=== PATIENT | female | born 1965 | race Caucasian/White ===

== ENCOUNTER 2019-09-04 13:13 | Outpatient (CLI) | payer OTHER, SELFPAY ==
--- NOTE | ~2019-09-04 | XR_ITS ---
EXAMINATION: XR lg joint inject/asp w image DATE: 09/04/2019 14:14 INDICATION: Osteoarthritis of the right hip with popping and pain. TECHNIQUE: A time-out was performed to verify the patient's name, date of , and procedure to b e performed. The procedure including the risks, benefits, and alternatives was discussed with the pat ient. Risks discussed included bleeding and infection. The patient understood the risks and agreed to proceed. The skin overlying the right hip joint was prepped and draped in usual sterile fashion. A nesthetic was administered with 1% lidocaine subcutaneously. A 22 G needle was advanced under fluoro scopic guidance into the joint. Injection of 0.6 mL of Omnipaque 240 confirmed intra-articular posit ion of the needle. Subsequently, injectate consisting of 5 mL of a 3:2 mixture of 1% lidocaine and 1 0 mg/mL Kenalog for a total dosage of 20 mg Kenalog was instilled. Washout of contrast was seen confi rming intra-articular administration. The needle was removed and the entry site was cleaned and dress ed. There were no immediate complications. Fluoroscopy exposure time was 0.1 minutes. The total numb er of images was 1. FINDINGS: Real-time fluoroscopy demonstrates the needle in the right hip joint. Patient's pain prior to procedure:07/05. Patient's pain following the procedure: 04/06. IMPRESSION: 1. Right hip injection of local anesthetic and steroid with decrease in the patient's presenting pain . Reviewed, dictated and finalized at location A. IMPRESSION: 1. Right hip injection of local anesthetic and steroid with decrease in the pat ient's presenting pain.
== END 2019-09-04 13:14 | disposition home or self-care (01) ==
PROVIDERS: PCP Internal Medicine; Visit Provider Physician Assistant Surgical
DX: M16.11 Unilateral primary osteoarthritis, right hip (principal)
CPT/HCPCS: 20610; 77002; J3301; Q9966

== ENCOUNTER 2019-11-27 14:43 | Outpatient (CLI) | payer OTHER, SELFPAY ==
--- NOTE | ~2019-11-27 | US_ITS ---
EXAMINATION: US pelvic complete w TV DATE: 11/27/2019 15:47 INDICATION: Pelvic pain. TECHNIQUE: Multiple transabdominal and transvaginal sonographic images of the pelvis were obtained. COMPARISON: Ultrasound pelvis 01/16/2015 FINDINGS: TRANSABDOMINAL ULTRASOUND: The uterus measures 9.2 x 3.2 x 4.6 cm. There is no free fluid in the pelvis. TRANSVAGINAL ULTRASOUND: The endometrial complex measures 8 mm in thickness. The ovaries are normal. IMPRESSION: 1. Thickened endometrial complex. The differential diagnosis includes endometrial hyperplasia, polyp, and carcinoma. Biopsy is recommended. 2. Ovaries not visualized. Reviewed, dictated and finalized at location A. IMPRESSION: 1. Thickened endometrial complex. The differential diagnosis includes endometri al hyperplasia, polyp, and carcinoma. Biopsy is recommended. 2. Ovaries not visualized.
== END 2019-11-27 14:44 | disposition home or self-care (01) ==
PROVIDERS: PCP Internal Medicine
DX: R10.30 Lower abdominal pain, unspecified (principal)
CPT/HCPCS: 76830; 76856

== ENCOUNTER 2024-04-18 14:52 | Outpatient (CLI) | payer OTHER, SELFPAY ==
--- NOTE | ~2024-04-18 | DEXA_ITS ---
Bone Density Report Name: BRIAN VIVAR Age: 58 Sex: Female Ethnicity: White Date of : 1965 Indication: osteopenia; prior fracture; Referring Provider: JAYY, REMEDIOS Doran Study: Bone densitometry was performed. Exam Date: April 18, 2024 Accession number: [id number] Bone Density: Region BMD T-score Z-score Classification AP Spine(L1-L4) 0.894 -1.4 -0.1 Osteopenia Femoral Neck (Left) 0.598 -2.3 -1.1 Osteopenia Total Hip (Left) 0.801 -1.2 -0.3 Osteopenia World Health Organization criteria for BMD impression classify patients as: Normal (T-score at or above -1.0), Osteopenia (T-score between -1.0 and -2.5), or Osteoporosis (T-score at or below -2.5). 10-year Fracture Risk(1): Major Osteoporotic Fracture 16% Hip Fracture 2.6% Reported Risk Factors: [place] (), Neck BMD=0.598, BMI=27.4, previous fracture (1) FRAX(R) Version 3.08. Fracture probability calculated for an untreated patient. Fracture probability may be lower if the patient has received treatment. Previous Exams: Region Exam Age BMD T-score BMD Change BMD Change Date g/cm2 vs Baseline vs Previous AP Spine (L1-L4) 04/18/2024 58 0.894 -1.4 -0.022 (-2.4%) -0.022 (-2.4%) 07/02/2014 48 0.916 -1.2 Total Hip(Left) 04/18/2024 58 0.801 -1.2 -0.014 (-1.8%) -0.014 (-1.8%) 07/02/2014 48 0.815 -1.0 *Denotes significance at 95% confidence level, LSC for AP Spine = 0.022 g/cm2, LSC for Total Hip = 0.027 g/cm2 Clinical Information Provided by Patient: Has had a low trauma fracture Has used the following medications: HRT (i.e. estrogen/hormone therapy), MULTI VITAMIN Patient maximum height was 63 No regular weight bearing exercise Drinks caffeinated beverages Onset of menses at age 15 Number of children 2 Impression: The patient has low bone mass, based on the Left Femoral Neck T-score. The patient has an estimated ten-year risk of hip fracture of 2.6% and an estimated ten-year risk of major fracture of 16%, based on the WHO FRAX algorithm. The patient has risk factors, including: previous fracture. No significant bone loss was observed. Discussion: BONE DENSITY IS LOW AT ONE OR MORE SKELETAL SITES. This patient's lowest T-score is low at one or more skeletal sites. It meets the World Health Organization's (WHO) criteria for ?low bone mass? (T-score between -1.0 and -2.5). The patient's 10-year risk of fracture as calculated by FRAX is less than the threshold where pharmacological therapy is recommended by the National Osteoporosis Foundation (NOF). However, all treatment decisions require clinical judgment and consideration of individual patient factors, including patient preferences, comorbidities, previous drug use, risk factors not captured in the FRAX model (e.g., frailty, falls, vitamin D deficiency, increased bone turnover, interval significant decline in bone density) and possible under or overestimation of fracture risk by FRAX. The patient should follow a healthful lifestyle (good nutrition with adequate calcium and vitamin D, and appropriate weight-bearing exercise). Follow-Up: Consider repeating this study in 2 to 3 years to reassess this patient's status, or sooner if there is some new clinical indication. Reported by: AMADOU on 04/18/2024 3:24:00 PM. Reviewed, dictated and finalized at location A. JACQUELINE
--- OUTSIDE RECORDS SUMMARY | 2024-04-20 02:37 | XMS_ITS | Continuity of Care Document ---
Author Organization [place] [facility], [facility] Internal Med [address] Address [address] 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 Plan of Treatment Reminders Order Date Submit Date Provider Last Modified By Organization Details Last Modified Time Details Appointments None recorded. Lab CMP, serum or [facility] 2024 025 [facility], 2022 Brando Mckeon, [facility] [address], [place], [address], 5 13:00:10 lipid panel, serum 2024 025 [facility], 2022 Branod Mckeon, [facility] [address], [place], [address], 5 13:00:12 vitamin D, 25-hydrox y, total, serum 2024 [facility], 2022 Brando Mckeon, [facility] [address], [place], [address], 5 13:00:14 CBC w/ auto diff 2024 025 [facility], 2022 Brando Mckeon, [facility] [address], [place], [address], 5 13:00:13 Referral None recorded. Procedures None recorded. Surgeries None recorded. Imaging DEXA 2024 025 [facility], 2022 Tyrell Mckeon, [address], [place], [address], 5 17:10:35 Medication Orders None recorded. Patient TargetsNo targets recorded. Patient InstructionsNo instructions recorded. Reason for Referral None Reported. Problems Name Problem SNOMED Code Status Onset Date Resolution Date Notes Provider Name and Address Organization Details Recorded Time Acute sinusitis 71842665 Completed 202103/10/2023 Ila Carrillo n, RMA null, [place] [facility] 3 15:55:19 Knee stiff 761000112 Completed Not Available [facility] 3 14:48:19 Subluxati on of toe joint 331418605 Completed 202103/10/2023 Ila Carrillo n, RMA null, [place] [facility] 3 15:55:44 Low back pain 068780868 Completed 03/10/2023 Ila jackson, RMA null, [place] [facility] 3 15:55:25 Lesion of liver 034119816 Completed Not Available [facility] 3 14:48:20 Current tear of medial cartilage AND/OR meniscus of knee Active Not Available [facility] 3 14:48:20 Ganglion cyst of left hand 01323931649 9105 Active 2021 Ila jackson, RMA null, [place] [facility] 3 15:55:53 Ulcer of big toe 852758804 Completed 202103/10/2023 Ila Carrillo n, RMA null, [place] [facility] 3 15:55:42 Pain in left foot 15696719693 9107 Completed 202103/10/2023 Ila Carrillo n, RMA null, [place] [facility] 3 15:55:37 Blood in urine 58858864 Completed Not Available [facility] 3 14:48:20 Hemangiom a 366169623 Completed 201603/10/2023 Ila Riosbea n, RMA null, [place] [facility] 3 15:55:29 Bunion 927878784 Completed 202103/10/2023 Ila Stufflebea n, RMA null, [place] [facility] 3 15:55:34 Anxiety 45934844 Active Not Available [facility] 3 14:48:20 Upper respirato ry infection 39356516 Completed Ila Riosbea n, RMA null, [place] [facility] 3 15:55:49 Hyperlipi demia 29019511 Active 2021 Ila Stsarahbea n, RMA null, [place] [facility] 3 15:55:27 Palpitati ons 15138614 Completed 03/10/2023 Ila Veraa n, RMA null, [place] [facility] 3 15:55:46 Neck pain 41719704 Completed Not Available [facility] 3 14:48:21 Pain in limb 60478503 Completed Not Available [facility] 3 14:48:21 Upper respirato ry infection 00845697 Completed 202203/10/2023 Ila Riosbea n, RMA null, [place] [facility] [place] [facility] 3 15:55:49 Bilateral sacroilia c joint pain 75086428413 718926 Completed 202203/10/2023 Ila Riosbea n, RMA null, [place] [facility] 3 15:55:23 Viral gastroent eritis 996114787 Active 2022 Je Valladares MD [address] [place] [address], [address] , [place] [facility] 3 16:09:46 COVID-19 310816116 Active 2023 Malissa Hamilton LPN null, [place] [facility] 4 14:23:11 Steatosis of liver 752983606 Active 2024 Je Valladares MD [address] [facility], [facility] [address], [place], [address] , [facility] [employer] [facility] 5 12:47:54 Memory impairmen t 295631248 Active 2024 Je Valladares MD [address] [facility], [facility] [address], [place], [address] , [facility] [employer] [facility] 5 12:52:59 Problem Notes None recorded. Procedures Surgical History Date Name Laterality Status Provider Name and Address Organization Details Recorded Time 05/27/19 Hip surgery completed Yola Mancini CNA [place] [employer] [facility] [employer] [facility] 02/10/2023 13:35:27 hammer toe operation completed Not Available [facility] 05/26/2022 14:45:37 partial hip replacement by prosthesis completed Not Available [facility] 05/26/2022 14:45:37 Imaging Results None recorded. Procedure Notes None recorded. Medical Equipment None Reported. Allergies Allergen ID Allergen Name Allergen Category Reaction Reaction Severity Criticality Documentation Date Start Date Code Code System Note Provider Name and Address Organization Details Recorded Time 70112 Substance with sulfonami de structure and antibacte rial mechanism of action (substanc e) medicatio n Not available Not available Not available 05/26/2022 44594 8003 SNOMED Not Available [facility] 3 14:51:05 Medications Name Sig Start Date Stop Date Status Note LastModified by Organization Details LastModified Time celecoxib 200 mg capsule TAKE 2 CAPSULES BY MOUTH WITH BREAKFAST THE DAY BEFORE SURGERY. TAKE 1 CAPSULE TWICE DAILY FOR 4 DAYS AFTER DISCHARGE 12/09 completed Not Available Not Available Not Available amoxicillin 500 mg capsule TAKE 1 CAPSULE BY MOUTH EVERY 8 HOURS UNTIL FINISHED 04/18 completed Not Available Not Available Not Available terconazole 0.4 % vaginal cream active Not Available Not Available Not Available prednisone 10 mg tablet Take 10 mg by oral route as directed. 12/09 completed Not Available Not Available Not Available doxycycline hyclate 100 mg capsule Take 1 capsule twice a day by oral route for 7 days. 06/01 completed Not Available Not Available Not Available azithromyci n 250 mg tablet TAKE 2 TABLETS BY MOUTH TODAY, THEN TAKE 1 TABLET DAILY FOR 4 DAYS DIRECTED 04/18 completed Not Available Not Available Not Available CombiPatch 0.05 mg-0.14 mg/24 hr transdermal 03/18 completed Not Available Not Available Not Available ibuprofen 800 mg tablet TAKE 1 TABLET BY MOUTH EVERY 8 HOURS NEEDED FOR PAIN 04/18 completed Not Available Not Available Not Available fluconazole 150 mg tablet TAKE 1 TABLET (150 MG TOTAL) BY MOUTH ONCE FOR 1 DOSE. 04/18 completed Not Available Not Available Not Available benzonatate 200 mg capsule TAKE 1 CAPSULE BY MOUTH THREE TIMES DAILY 02/10 completed Not Available Not Available Not Available hydrocodone 5 mg-acetamin ophen 325 mg tablet TAKE 1 TO 2 TABLETS BY MOUTH EVERY 4 HOURS NEEDED FOR PAIN. MUST LAST 7 DAYS. 12/09 completed Not Available Not Available Not Available bupivacaine HCl 0.5 % (5 mg/mL) injection solution Take 40 mg by injection route. 03/10 completed Not Available Not Available Not Available prednisone 20 mg tablet 01/06 completed Not Available Not Available Not Available prednisone 5 mg tablet TK 1 T PO QD active Not Available Not Available No t Available terconazole 0.8 % vaginal cream IVB FOR 3 CONS DAYS 11/10 completed Not Available Not Available Not Available clindamycin HCl 150 mg capsule active Not Available Not Available Not Available hydroxyzine pamoate 50 mg capsule 12/09 completed Not Available Not Available Not Available meclizine 12.5 mg tablet Take 1 tablet 3 times a day by oral route. active Not Available Not Available No t Available metronidazo le 500 mg tablet TAKE 1 TABLET BY MOUTH TWICE A DAY FOR 7 DAYS 04/18 completed Not Available Not Available Not Available acetaminoph en 300 mg-codeine 30 mg tablet TK 1 T PO BID PRN active Not Available Not Available No t Available ciprofloxac in 250 mg tablet TAKE 1 TABLET BY MOUTH TWICE DAILY FOR 7 DAYS 04/18 completed Not Available Not Available Not Available ciprofloxac in 500 mg tablet TK 1 T PO BID. active Not Available Not Available No t Available tramadol 50 mg tablet active Not Available Not Available No t Available triamcinolo ne acetonide 0.1 % topical cream APPLY TO NECK TWICE DAILY 04/18 completed Not Available Not Available Not Available clobetasol 0.05 % topical gel 11/29 completed Not Available Not Available Not Available prednisone 10 mg tablets in a dose pack Take 1 tab by mouth, 3 times a day for 3 daysTake 1 tab by mouth 2 times a day for 2 daysTake 1 tab by mouth once a day for 1 day 03/18 completed Not Available Not Available Not Available meloxicam 7.5 mg tablet 02/10 completed Not Available Not Available Not Available Kenalog 10 mg/mL suspension for injection Take 40 mg by injection route. 03/10 completed [facility]: 0003- [phone]- 20 Not Available Not Available Not Available lorazepam 2 mg tablet 11/29 completed Not Available Not Available Not Available benzonatate 100 mg capsule 11/29 completed Not Available Not Available Not Available doxycycline monohydrate 100 mg capsule Take 1 capsule twice a day by oral route. active Not Available Not Available No t Available cephalexin 500 mg capsule active Not Available Not Available Not Available triamcinolo ne acetonide 0.1 % topical ointment 11/29 completed Not Available Not Available Not Available fluorometho lone 0.1 % eye drops,suspe nsion SHAKE LIQUID AND INSTILL 1 DROP IN RIGHT EYE FOUR TIMES DAILY 03/10 completed Not Available Not Available Not Available gabapentin 300 mg capsule TK 1 C PO TID active Not Available Not Available No t Available mupirocin 2 % topical ointment 12/09 completed Not Available Not Available Not Available Enbrel 25 mg (1 mL) subcutaneou s powder for solution active Not Available Not Available Not Available lorazepam 1 mg tablet TAKE 1 TABLET 3 TIMES A DAY active Not Available Not Available No t Available ibuprofen 600 mg tablet 11/10 completed Not Available Not Available Not Available fluocinonid e 0.05 % topical solution APPLY TO SCALP TWICE DAILY 12/09 completed Not Available Not Available Not Available levofloxaci n 500 mg tablet TK 1 T PO Q 24 H FOR 7 DAYS 11/05 completed Not Available Not Available Not Available estradiol 0.01% (0.1 mg/gram) vaginal cream APPLY 1 GRAM TO VAGINA TWO NIGHTS PER WEEK 04/18 completed Not Available Not Available Not Available methylpredn isolone 4 mg tablets in a dose pack 11/29 completed Not Available Not Available Not Available fluticasone propionate 50 mcg/actuati on nasal spray,suspe nsion SHAKE LIQUID AND USE 1 SPRAY IN EACH NOSTRIL TWICE DAILY 02/10 completed Not Available Not Available Not Available doxycycline hyclate 100 mg tablet TAKE 1 TABLET BY MOUTH TWICE DAILY FOR 7 DAYS 02/10 completed Not Available Not Available Not Available progesteron e micronized 100 mg capsule active Not Available Not Available Not Available amoxicillin 875 mg-potassiu m clavulanate 125 mg tablet TAKE 1 TABLET BY MOUTH TWICE DAILY FOR 5 DAYS 04/18 completed Not Available Not Available Not Available amoxicillin 500 mg-potassiu m clavulanate 125 mg tablet active Not Available Not Available Not Available estradiol 0.025 mg/24 hr semiweekly transdermal patch active Not Available Not Available Not Available escitalopra m 10 mg tablet TAKE 1 AND 1/2 TABLETS DAILY active Not Available Not Available No t Available cyclobenzap rine 5 mg tablet TAKE 1 TABLET BY MOUTH TWICE DAILY NEEDED 04/18 completed Not Available Not Available Not Available Premarin 0.625 mg/gram vaginal cream USE 0.5 GRAM VAGINALLY 2 TIMES A WEEK NEEDED 02/10 completed Not Available Not Available Not Available nitrofurant oin monohydrate /macrocryst als 100 mg capsule TAKE 1 CAPSULE BY MOUTH TWICE DAILY 04/18 completed Not Available Not Available Not Available chlorhexidi ne gluconate 0.12 % mouthwash SWISH 15 ML IN MOUTH TWICE A DAY FOR 30 SECONDS THEN EXPECTORA TE 04/18 completed Not Available Not Available Not Available clobetasol 0.05 % topical spray 08/21 completed Not Available Not Available Not Available lidocaine (PF) 10 mg/mL (1 %) injection solution In office injection administe red by the provider 03/18 completed [facility]: 0409- 4276- [phone] Not Available Not Available Not Available Enbrel 25 mg/0.5 mL (0.5 mL) subcutaneou s syringe Inject 1 mL every day by subcutane ous route. 03/18 completed Not Available Not Available Not Available diclofenac 1 % topical gel 02/10 completed Not Available Not Available Not Available Uribel 118 mg-10 mg-40.8 mg-36 mg capsule 11/29 completed Not Available Not Available Not Available Suprep Bowel Prep Kit 17.5 gram-3.13 gram-1.6 gram oral solution 11/05 completed Not Available Not Available Not Available Emily (28) 90 mcg-20 mcg tablet 11/05 completed Not Available Not Available Not Available Xeljanz 5 mg tablet 12/09 completed Not Available Not Available Not Available Taclonex 0.005 %-0.064 % topical suspension active Not Available Not Available N ot Available Eliquis 2.5 mg tablet 12/09 completed Not Available Not Available Not Available Stimulant Laxative Plus 8.6 mg-50 mg tablet TAKE 2 TABLETS BY MOUTH TWICE DAILY. 12/09 completed Not Available Not Available Not Available Fluvirin 9086-0902 45 mcg (15 mcg x 3)/0.5 mL intramuscul ar suspension INJECT 0.5 ML INTRAMUSC ULARLY DIRECTED. active Not Available Not Available No t Available Humira(CF) Pen 40 mg/0.4 mL subcutaneou s kit 04/18 completed Not Available Not Available Not Available Imvexxy Starter Pack 4 mcg vaginal insert, dose pack INSERT 1 SUPPOSITO RY INTO THE VAGINA NIGHTLY FOR 18 DAYS 04/18 completed Not Available Not Available Not Available Flublok Quad (PF) 180 mcg (45 mcg x 4)/0.5 mL IM syringe PHARMACIS T ADMINISTE RED IMMUNIZAT ION ADMINISTE RED AT TIME OF DISPENSIN G 12/09 completed Not Available Not Available Not Available Flowflex COVID-19 Antigen Home Test kit TEST DIRECTED TODAY 02/10 completed Not Available Not Available Not Available Paxlovid 300 mg (150 mg x 2)-100 mg tablets in a dose pack TK 2 NIRMATREL VIR TS AND 1 RITONAVIR T TOGETHER PO 04/18 completed Not Available Not Available Not Available Hyrimoz(CF) Pen 40 mg/0.4 mL subcutaneou s pen injector active Not Available Not Available Not Available Vitals Date Recorded Body height Body mass index (BMI) Body weight Body temperature Heart rate Oxygen saturation Oxygen saturation in Arterial blood by Pulse oximetry Systolic blood pressure Diastolic blood pressure Provider Name and Address Organization Details Last Updated DateTime 5 163.83 cm 26.9 kg/m2 62287.1 9 g 97.2 [degF] 88 /min 96 % 96 % 118 mm[Hg] 80 mm[Hg] MIRA Bryant [place] [facility] [place] [facility] 5 12:24:58 Social History Question Answer Notes LastModified by Organizat ion Details LastModified Time Tobacco Smoking Status Former Smoker Not Available [facility] 05/26/2022 14:45:29 What Is Your Level Of Alcohol Consumption? Occasional [id number] Information not available 05/26/2022 In The 14 Days Before Symptom Onset, Have You Had Close Contact With A Laboratory-confir med COVID-19 While That Case Was Ill? No [id number] Information not available 05/26/2022 In The 14 Days Before Symptom Onset, Have You Had Close Contact With A Person Who Is Under Investigation For COVID-19 While That Person Was Ill? 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 17+yearssinthelma jensen Quit When She Was 31 [email or web address] Information not available 02/10/2023 Have You Ever Been Counseled For Unhealthy Alcohol Use? No [id number] Information not available 05/26/2022 Has Tobacco Cessation Counseling Been Provided? No [id number] Information not available 05/26/2022 Have You Recently Traveled Abroad? No [id number] Information not available 05/26/2022 Do You Or Have You Ever Used Any Other Forms Of Tobacco Or Nicotine? No [id number] Information not available 05/26/2022 Sex: Unknown Functional Status None recorded. Mental Status None recorded. Family History Relationship Description Onset Age of this Age Resolved Age Notes LastModified by Organization Details LastModified Time Father Diabetes mellitus deceas ed [id number] Not available 05/26/2022 14:45:38 Father Arthritis deceas ed Not available 04/18/2024 12:19:46 Father Kidney disease [email or web address] Not available 2022 13:34:17 Mother Hypertensive disorder [id number] Not available 05/26/2022 14:45:38 Mother Osteoporosis Not avail able 04/18/2024 12:19:46 Medical History Condition Response ARTHRITIS Y HIGH CHOLESTEROL / HYPERLIPIDEMIA Y ANXIETY DISORDER Y Gynecological HistoryNo gynecological history recorded. Obstetrics History GPAL:G 0 P 0 0 0 0 Immunizations Vaccine Type Date Status Note Provider Nam e and Address Organization Details Recorded Time Influenza, high-dose, trivalent, PF 0 completed Not Available [facility] 05/26/2022 14:50:57 Influenza, high-dose, trivalent, PF 9 completed Not Available [facility] 05/26/2022 14:50:57 DTaP 8 completed Not Available [facility] 05/26/2022 14:50:57 Influenza, split virus, quadrivalent, preservative 1 completed Not Available [facility] 05/26/2022 14:50:57 COVID-19, mRNA, LNP-S, PF, 100 mcg/0.5mL dose or 50 mcg/0.25mL dose 1 completed Not Available [facility] 05/26/2022 14:50:57 COVID-19, mRNA, LNP-S, PF, 100 mcg/0.5mL dose or 50 mcg/0.25mL dose 1 completed Not Available [facility] 05/26/2022 14:50:57 influenza, unspecified formulation 8 completed Not Available [facility] 05/26/2022 14:50:57 Influenza, split virus, quadrivalent, preservative 6 completed Not Available [facility] 05/26/2022 14:50:58 Past Encounters Encounter ID Performer Location Encounter Start Date Encounter Closed Date Diagnosis/Indication Diagnosis SNOMED-CT Code Diagnosis ICD10 Code Diagnosis Note [id number] Je Valladares MD [facility] [address] [facility] [place] [address] 04/18/2024 12:15:16 04/18/2024 13:02:25 Adult health examination 374984505 Z00.00 Colonoscop y- Age 54- Dr. Rosanne reagan- 2023 (depaul) NL per ptDEXA- OrderedFLU - neededPneu movax- neverCOVID - needs booster Screening for osteoporosis 525900838 Z13.820 Anxiety 57343741 F41.9 under control Steatosis of liver 24773 1007 K76.0 Long-term drug therapy 080765497 Z79.891 Memory impairment 975651 006 R41.3 to see neuro, no memory loss seen on nl conversati on Health Concerns Section Related Observation LastModified by Organization Detai ls LastModified Time None Recorded Concern Status LastModified by Organization Details LastModified Time None Recorded Payers Encounter Date Sequence Insurance Name Policy Number Policy Moreno Covered Member ID Moreno Member ID Guarantor Name 04/18/2024 1 [employer] - OPEN ACCESS Alondra Parker [id number] OI Alondra Parker Notes Date Note Type Note Provider Name and Address Organization Details Recorded Time 04/18/2024 text/html Pt is here today for a Routine follow upShe has not been seen since 02/2023PT IS NOT FASTING ( [employer]) Would like her cholesterol checked as well as other labsAlso worried about her memory, forgets name of people Arthritis- Sees Rheumatology, On medsMeds- Hyrimoz Once every 2 weeks 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 She does see PsychMeds- Escitalopram 10mg, Lorazepam 1mg TID as needed Je Valladares MD [address] [place] [address], [facility] [address], [place], [address], [place] [facility] [employer] 04/18/2024 13:04:12 OBGyn Episode No OBEpisode recorded.
--- OUTSIDE RECORDS SUMMARY | 2024-04-20 02:37 | XMS_ITS | Referral Summary ---
Author Organization [facility] Address [address] [place] [address] Care Team Providers Care Filler In Name Role Phone Je Valladares MD Primary Care Provider Source Comments [facility],non-owned Affiliates and Associated Physician Practices is amultiple site organization consisting of ambulatory clinics and hospital sitesin [place], [place], [place] and [place]. This disclosure is being madepursuant to the Care Everywhere program and may not contain all information available regarding this patient. Last updated 17.[facility] Encounters Date Type Department Care Team Description 04/12/2024 Travel 03/30/2024 Telephone [facility] - GI [address] [place] [phone] Juan Hubbard MD Appointment 03/27/2024 Telephone [facility] - Nephrology [address] [place] [phone] Ila Raymond RN Concerns from Last 3 Months Allergies Active Allergy Reactions Criticality Noted Date Comments Sulfa Drugs Other Medium 04/28/2016 shakes Medications * Be aware that medications may not be up to date on this document. Alwaysverify current medications with the patient. Medication Sig Dispensed Refills Start Date End Date Status escitalopram (LEXAPRO) 10 MG tablet Take 1 (one) tablet by mouth once daily 03/21/2016 Active LORazepam (ATIVAN) 1 MG tablet Take 1 (one) tablet by mouth 2 times daily 01/19/2016 Active predniSONE (DELTASONE) 5 MG tablet 03/21/2016 Active estradiol (VIVELLE-DOT) 0.025 MG/24HR patch 12/04/2020 Active Progesterone 100 MG capsule 12/04/2020 Active HUMIRA PEN 40 MG/0.4ML injection 0.4 mL every 14 days 08/26/2021 Active Cholecalciferol 50 MCG (2000 UT) Take 2,000 Units by mouth every morning Active Multiple Vitamin (MULTIVITAMIN ADULT PO) Active meloxicam (Mobic) 7.5 MG tablet Take 1 (one) tablet by mouth once daily 07/19/2023 07/18/2024 Active Active Problems Problem Noted Date Diagnosed Date Elevated liver enzymes 02/01/2020 Overview (08/10/2023): 02/01/20 Fibroscan CAP 275, LSM 4.5 kPa 09/01/22 Fibroscan CAP 225, LSM 4.8 kPa 08/08/23 Fibroscan CAP 265, LSM 7.3 kPa Anxiety 02/01/2020 Low back pain 02/01/2020 Psoriatic arthritis 02/01/2020 Liver hemangioma 11/10/2016 Abnormal finding on breast imaging 08/26/2016 Social History Tobacco Use Types Packs/Day Years Used Date Smoking Tobacco: Never Smokeless Tobacco: Never Tobacco Cessation:Counseling Given: Not Answered Alcohol Use Standard Drinks/Week Comments Yes 0 (1 standard drink = 0.6 oz pur e alcohol) socially- a couple on weekends Sex and Gender Information Value Date Recorded Sex Assigned at Female 05/13/2021 5:37 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 Gender Identity Female 05/13/2021 5:37 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 Sexual Orientation Not on file Last Filed Vital Signs Vital Sign Reading Time Taken Comments Blood Pressure 128/72 08/08/2023 11:49 AM CDT Pulse 75 08/08/2023 11:49 AM CDT Temperature 36.4 ??C (97.5 ??F) 08/08/2023 11:49 AM C DT Respiratory Rate 18 08/03/2022 11:24 AM CDT Oxygen Saturation 100% 08/08/2023 11:49 AM CDT Inhaled Oxygen Concentration - - Weight 71.7 kg (158 lb) 08/08/2023 11:49 AM CDT Height 162.6 cm (5' 4 ) 08/08/2023 11:49 AM CDT Body Mass Index 27.12 08/08/2023 11:49 AM CDT Plan of Treatment Upcoming Encounters Date Type Department Care Team (Late st Contact Info) Description 06/04/2024 12:30 PM CDT Appointment [facility] [address] [place] [phone] Juan Hubbard MD [address] [place] [address] [address] [place] [address] 06/04/2024 1:30 PM CDT Office Visit [facility] GI [address] [place] [address], [place] [phone] Juan Hubbard MD [address] [place] [address] [address] [place] [address] Goals Goal Patient Goal Type Associated Problems Recent Progress Patient-Stated? Author Medication Management General On track( 024 11:47 AM CDT) Stephen Beatty, RN Note: Expected end date: ongoing Interventions: Take all medications as prescribed Let your doctor know right away about any changes in your medications Make sure to request a refill of your medication at least one week prior to your last dose Procedures Procedure Name Priority Date/Time Associated Diagnosis Comments BASIC METABOLIC PANEL (CALCIUM TOTAL) Routine 08/19/2023 12:05 PM CDT Fatty (change of) liver, not elsewhere classified MAMMO BILAT SCREENING W JUDY Routine 06/03/2023 10:43 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 Encounter for screening mammogram for malignant neoplasm of breast LIPID PROFILE Routine 01/03/2021 10:59 AM CDT Elevated liver enzymes NAFLD (nonalcoholic fatty liver disease) HEPATITIS C ANTIBODY Routine 12/14/2019 3:03 PM CDT Elevated liver enzymes from Last 3 Months or Most Recently Relevant to Health Maintenance Results * (ABNORMAL) BASIC METABOLIC PANEL (CALCIUM TOTAL) (08/19/2023 12:05 PM CDT) Glucose 121(H) 70 - 99 mg/dL [facility] INSURANCE BILL BUN 13 6 - 24 mg/dL [facility] INSURANCE BILL Creatinine 0.82 0.57 - 1.00 mg/dL [facility] INSURANCE BILL eGFR by CKD-EPI 83 >59 mL/min/1.7 3 [facility] INSURANCE BILL BUN/Creatinine Ratio 16 9 - 23 [facility] INSURANCE BILL Sodium 142 134 - 144 mmol/L [facility] INSURANCE BILL Potassium 4.3 3.5 - 5.2 mmol/L [facility] INSURANCE BILL Chloride 104 96 - 106 mmol/L [facility] INSURANCE BILL CO2 24 20 - 29 mmol/L [facility] INSURANCE BILL Calcium 9.3 8.7 - 10.2 mg/dL [facility] INSURANCE BILL Comment:FASTING Blood BLOOD SPECIMEN / Unknown 08/19/2023 12:05 PM CDT 08/19/2023 Narrative Resulting Agency Comment Lab Testing performed at: [facility] [address] ??[facility] [id number] Juan Hubbard MD LAB - CHEMISTRY DEE MORRIS [facility] INSURANCE BILL [address] [place] [address] * MAMMO BILAT SCREENING W JUDY (06/03/2023 10:43 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) Anatomical Region Laterality Modality Breast Bilateral Mammography 06/03/2023 2:46 PM BAGGING MACHINE OPERATOR Impressions 06/03/2023 2:51 PM BAGGING MACHINE OPERATOR : Annual screening mammography is recommended. OVERALL FINAL ASSESSMENT: ??BI-RADS Category 1: Negative. > Interpreting Provider: Jerri Morris MD on 06/03/2023 2:51 PM Narrative 06/03/2023 2:51 PM BAGGING MACHINE OPERATOR EXAMINATION: BILATERAL DIGITAL SCREENING MAMMOGRAM AND BILATERAL BREAST TOMOSYNTHESIS HISTORY: Screening. COMPARISON: Serial examinations dating back to 04/20/2019. TECHNIQUE: ??BILATERAL digital breast tomosynthesis (DBT) and synthetic 2D digital mammogram images were obtained (bilateral craniocaudal and mediolateral oblique projections) including computer aided detection (CAD.) BREAST PARENCHYMAL COMPOSITION: Category C: The breasts are heterogeneously dense which may obscure small masses. MAMMOGRAM FINDINGS: There is no suspicious finding in either breast. Overall, there has been no significant interval change. Yang Perkins MD MAMMO ORDERABLES * (ABNORMAL) LIPID PROFILE (01/03/2021 10:59 AM CDT) [facility] Cholesterol 202(H) 100 - 199 mg/dL [facility] INSURANCE BILL Triglycerides 136 0 - 149 mg/dL [facility] INSURANCE BILL HDL Cholesterol 61 >39 mg/dL [facility] INSURANCE BILL VLDL Calculated 24 5 - 40 mg/dL [facility] INSURANCE BILL LDL Calculated 117(H) 0 - 99 mg/dL [facility] INSURANCE BILL Comment NOT NEEDED [facility] INSURANCE BILL Comment: FASTING Ancillary determined the test is not needed. Blood BLOOD SPECIMEN / Unknown 01/03/2021 10:59 AM CDT 01/03/2021 Narrative Resulting Agency Comment [facility] performed at: [facility] [address] ??[facility] [id number] Juan Hubbard MD LAB [facility] [address] [place] [address] * HEPATITIS C ANTIBODY (12/14/2019 3:03 PM CDT) [facility] Hepatitis C Antibody <0.1 0.0 - 0.9 s/co ratio [facility] INSURANCE BILL Comment: ? Negative: ? < 0.8 ?Indeterminate: 0.8 - 0.9 ? Positive: ? > 0.9 ? . ?The CDC recommends that a positive HCV antibody result ?be followed up with a HCV Nucleic Acid Amplification ?test ([id number]). Blood BLOOD SPECIMEN / Unknown 12/14/2019 3:03 PM CDT 12/14/2019 Narrative Resulting Agency Comment Lab Testing performed at: [address] ??[facility] [id number] Latonia Marley PA-C LAB - CHEMISTRY O RDERABLES [facility] INSURANCE BILL [address] [place] [address] from Last 3 Months or Most Recently Relevant to Health Maintenance Care Teams Filler In Relationship Specialty Start Date End Date Je Valladares MD [address] [place] [address] [address] [place] [phone] PCP - General Internal Medicine 04/23/16
--- OUTSIDE RECORDS SUMMARY | 2024-04-20 02:37 | XMS_ITS | Data Portability ---
Author Organization [place] - [facility], Main Office Address [address] [place] [address] Care Team Providers Care Construction Equipment Operator Name Role Phone RIVERA LOYOLA Residential Sales Rep Assessment Encounter Date Assessment Date Assessment LastModified by Organization Details LastModified Time 02/10/2023 02/10/2023 Patient has recurrent chronic low back pain x-rays show some moderate spondylosis otherwise unremarkable. We talked about treatment options today in detail she is on other medication she wanted shot of cortisone therefore under sterile conditions I injected the patient's bilateral sacroiliac bursa in the office with 4 cc of 0.5% bupivacaine and 20 mg of Kenalog each. Patient tolerated the procedure well. I offered her formal therapy she declined she wants to see how the shots do we see her back as needed if in 6 weeks she continues have significant problems we will talk further. She voiced understanding agrees above plan she will call for any further problems difficulties or questions. [email or web address] Not available 02/10/2023 14:05:28 Plan of Treatment Reminders Order Date Submit Date Provider Last Modified By Organization Details Last Modified Time Details Appointments None recorded. Lab CMP, serum or plasma 2024 025 [email or web address] [facility], [address], [address], [place], [address], 13:00:10 lipid panel, serum 2024 025 [email or web address] [facility], [address], [place], [address], 5 13:00:12 vitamin D, 25-hydroxy , total, serum 2024 025 [email or web address] [facility], [address], [place], [address], 5 13:00:14 CBC w/ auto diff 2024 025 [email or web address] [facility], [address], [place], [address], 5 13:00:13 Referral None recorded. Procedures injection/ aspiration joint/burs a (PROC) 2022 023 [email or web address] In-Office Order, Internal Use Only DO Not Attach Compendium DO Not Attach Compendium, Do Not Delete/merge, [address] 14:03:34 Surgeries None recorded. Imaging XR, lumbar spine 2022 023 [email or web address] [facility], [address], [place], [address], 3 15:15:04 DEXA 2024 025 [email or web address] [facility], [address], [address], [place], [address], 5 17:10:35 Medication Orders bupivacain e HCl 0.5 % (5 mg/mL) injection solution 2022 023 [facility], [address] [facility], [place], [place], [id number], 3 15:56:06 Kenalog 10 mg/mL suspension for injection 2022 023 [facility]204, [address] [facility], [place], [place], [id number], 15:56:28 Patient TargetsNo targets recorded. Patient InstructionsNo instructions recorded. Reason for Referral None Reported. Results Created Date Observation Date Name Description Value Unit Range Abnormal Flag Note LastModifiedBy Organization Detail LastModifiedTime 12/16/19 22 12/21/2021 XR, foot No observ ation record ed. [id number] [facility] [place] [address], [place], [address], 05/26/2022 14:51:10 09/09/19 23 08/31/2022 darin r monit or No observ ation record ed. [facility] [address], [place], [address], 09/08/2022 15:55:07 09/09/19 23 09/08/2022 darin r monit or No observ ation record ed. [address] [facility] [address], [place], [address], 09/09/2022 09:31:31 02/11/20 XR, lumba r spine No observ ation record ed. [email or web address] [facility] [address], [place], [address], 02/10/2023 14:06:35 Result Notes None recorded. Problems Name Problem SNOMED Code Status Onset Date Resolution Date Notes Provider Name and Address Organization Details Recorded Time Acute sinusitis 77881631 Completed 202103/10/2023 MIRA Sy [place] [facility] 15:55:19 Knee stiff 793364328 Completed Not Available [facility] 14:48:19 Subluxati on of toe joint 204197578 Completed 202103/10/2023 MIRA Sy[facility] [employer] 15:55:44 Low back pain 899864037 Completed 03/10/2023 Ila Carrillo n, RMA null, [place] [facility] 3 15:55:25 Lesion of liver 883206278 Completed Not Available [facility] 3 14:48:20 Current tear of medial cartilage AND/OR meniscus of knee Active Not Available [facility] 3 14:48:20 Ganglion cyst of left hand 64803747241 9105 Active 2021 Ila Carrillo n, RMA null, [place] [facility] [place] [facility] 3 15:55:53 Ulcer of big toe 590901450 Completed 202103/10/2023 Ila jackson, RMA null, [place] [facility] 3 15:55:42 Pain in left foot 13902219594 9107 Completed 202103/10/2023 Ila jackson, RMA null, [place] [facility] 3 15:55:37 Blood in urine 18205982 Completed Not Available [facility] 3 14:48:20 Hemangiom a 628997849 Completed 201603/10/2023 Ila Carrillo n, RMA null, [place] [facility] 3 15:55:29 Bunion 462928608 Completed 202103/10/2023 Ila jackson, RMA null, [place] [facility] 3 15:55:34 Anxiety 81424600 Active Not Available [facility] 3 14:48:20 Upper respirato ry infection 38485792 Completed Ila Carrillo n, RMA null, [place] [facility] [place] [facility] 3 15:55:49 Hyperlipi demia 46844029 Active 2021 Ila Carrillo n, RMA null, [place] [facility] [place] [facility] 3 15:55:27 Palpitati ons 37483737 Completed 03/10/2023 Ila Carrillo n, RMA null, [place] [facility] [employer] [facility] 3 15:55:46 Neck pain 40421510 Completed Not Available [facility] 3 14:48:21 Pain in limb 07755026 Completed Not Available [facility] 3 14:48:21 Upper respirato ry infection 78881223 Completed 202203/10/2023 Ila jackson RMA null, [place] [facility] [place] [employer] [facility] 3 15:55:49 Bilateral sacroilia c joint pain 44929858685 580021 Completed 202203/10/2023 Ila jackson RMA null, [place] [facility] [employer] [facility] 3 15:55:23 Viral gastroent eritis 298531631 Active 2022 Je Valladares MD [address], [address], [place], [address] , [employer] [facility] [employer] [facility] 3 16:09:46 COVID-19 663634325 Active 2023 Malissa Hamilton LPN null, [employer] [facility] [employer] [facility] 4 14:23:11 Steatosis of liver 392736857 Active 2024 Je Valladares MD [address], [address], [place], [address] , [employer] [facility] [employer] [facility] 5 12:47:54 Memory impairmen t 959908452 Active 2024 Je Valladares MD [address], [address], [place], [address] , [employer] [facility] [employer] [facility] 5 12:52:59 Problem Notes None recorded. Procedures Surgical History Date Name Laterality Status Provider Name and Address Organization Details Recorded Time 05/27/19 Hip surgery completed Yola Mancini CNA [employer] [facility] [place] [employer] [facility] 02/10/2023 13:35:27 hammer toe operation completed Not Available [facility] 05/26/2022 14:45:37 partial hip replacement by prosthesis completed Not Available [facility] 05/26/2022 14:45:37 Imaging Results Imaging Date Name Status LastModified by Organiz ation Details LastModified Time 12/21/2021 XR, foot completed [id number] [facility] [place] [address], [place], [address], 05/26/2022 14:51:10 08/31/2022 holter monitor completed [email or web address] [facility] [address], [place], [address], 09/08/2022 15:55:07 09/08/2022 holter monitor completed [email or web address] [facility] [address] [place] [address], [place], [address], 09/09/2022 09:31:31 02/10/2023 XR, lumbar spine completed [email or web address] [facility] [address], [place], [address], 02/10/2023 14:06:35 Procedure Notes None recorded. Medical Equipment None Reported. Allergies Allergen ID Allergen Name Allergen Category Reaction Reaction Severity Criticality Documentation Date Start Date Code Code System Note Provider Name and Address Organization Details Recorded Time 40006 Substance with sulfonami de structure and antibacte rial mechanism of action (substanc e) medicatio n Not available Not available Not available 05/26/2022 36970 8003 SNOMED Not Available [facility] 14:51:05 Medications Name Sig Start Date Stop [...] 40 mg by injection route. 03/10 completed [facility]: 0003- 0494- 20 Not Available Not Available [...] administe red by the provider 03/18 completed [facility]: 0409- 4276- 17 Not Available Not Available [...] Not Available Not Available Not Available Fluvirin 6480-1399 45 mcg (15 mcg x 3)/0.5 mL [...] Available Not Available Vitals Date Recorded Body mass index (BMI) Body height Oxygen saturation Oxygen saturation in Arterial blood by Pulse oximetry Heart rate Body weight Systolic blood pressure Diastolic blood pressure Provider Name and Address Organization Details Last Updated DateTime 2 28.5 kg/m2 162.56 cm 98 % 98 % 82 /min 68409.3 3 g 120 mm[Hg] 80 mm[Hg] Not Available [facility] 3 14:47:25 Date Recorded Body mass index (BMI) Body height Body weight Provider Name and Address Organization Details Last Updated DateTime 12/21/2021 28.5 kg/m2 162.56 cm 14128.33 g Not Available [facility] 05/26/2022 14:47:28 Date Recorded Body height Body mass index (BMI) Body weight Provider Name and Address Organization Details Last Updated DateTime 02/10/2023 163.83 cm 26.9 kg/m2 21969.62 g Yola Mancini CNA [facility] 02/10/2023 13:39:27 Date Recorded Body height Body mass index (BMI) Body weight Body temperature Heart rate Oxygen saturation Oxygen saturation in Arterial blood by Pulse oximetry Systolic blood pressure Diastolic blood pressure Provider Name and Address Organization Details Last Updated DateTime 3 163.83 cm 26.2 kg/m2 38856.8 2 g 97.4 [degF] 96 /min 98 % 98 % 102 mm[Hg] 66 mm[Hg] Ila ng [facility] 3 15:51:54 Date Recorded Body height Body mass index (BMI) Body weight Body temperature Heart rate Oxygen saturation Oxygen saturation in Arterial blood by Pulse oximetry Systolic blood pressure Diastolic blood pressure Provider Name and Address Organization Details Last Updated DateTime 5 163.83 cm 26.9 kg/m2 11689.1 9 g 97.2 [degF] 88 /min 96 % 96 % 118 mm[Hg] 80 mm[Hg] Ila ng [facility] 5 12:24:58 Social History Question Answer Notes LastModified by Organizat ion Details LastModified Time Tobacco Smoking Status Former Smoker Not Available [facility] 05/26/2022 14:45:29 What Is Your Level Of Alcohol Consumption? Occasional [id number] Information not available 05/26/2022 In The 14 Days Before Symptom Onset, Have You Had Close Contact With A Laboratory-confir med COVID-19 While That Case Was Ill? No [id number].50011 [id number] Information not available 05/26/2022 In The 14 Days Before Symptom Onset, Have You Had Close Contact With A Person Who Is Under Investigation For COVID-19 While That Person Was Ill? 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 17+yearssinthelma jensen Quit When She Was 31 [email or web address] Information not available 02/10/2023 Have You Ever Been Counseled For Unhealthy Alcohol Use? No MIGRATION.42948 [id number] Information not available 05/26/2022 Has Tobacco Cessation Counseling Been Provided? No MIGRATION.46511 96197 Information not available 05/26/2022 Have You Recently Traveled Abroad? No MIGRATION.42600 79552 Information not available 05/26/2022 Do You Or Have You Ever Used Any Other Forms Of Tobacco Or Nicotine? No MIGRATION.44266 48055 Information not available 05/26/2022 Sex: Unknown Functional Status None recorded. Mental Status None recorded. Family History Relationship Description Onset Age of this Age Resolved Age Notes LastModified by Organization Details LastModified Time Father Diabetes mellitus deceas ed [id number] Not available 05/26/2022 14:45:38 Father Arthritis deceas ed Not available 04/18/2024 12:19:46 Father Kidney disease [email or web address] Not available 2022 13:34:17 Mother Hypertensive disorder [id number] Not available 05/26/2022 14:45:38 Mother Osteoporosis Not avail able 04/18/2024 12:19:46 Medical History Condition Response ARTHRITIS Y ANXIETY DISORDER Y HIGH CHOLESTEROL / HYPERLIPIDEMIA Y Gynecological HistoryNo gynecological history recorded. Obstetrics History GPAL:G 0 P 0 0 0 0 Immunizations Vaccine Type Date Status Note Provider Nam e and Address Organization Details Recorded Time Influenza, high-dose, trivalent, PF 0 completed Not Available [facility] 05/26/2022 14:50:57 Influenza, high-dose, trivalent, PF 9 completed Not Available [facility] 05/26/2022 14:50:57 DTaP 8 completed Not Available [facility] 05/26/2022 14:50:57 Influenza, split virus, quadrivalent, preservative 1 completed Not Available [facility] 05/26/2022 14:50:57 COVID-19, mRNA, LNP-S, PF, 100 mcg/0.5mL dose or 50 mcg/0.25mL dose 1 completed Not Available [facility] 05/26/2022 14:50:57 COVID-19, mRNA, LNP-S, PF, 100 mcg/0.5mL dose or 50 mcg/0.25mL dose 1 completed Not Available [facility] 05/26/2022 14:50:57 influenza, unspecified formulation 8 completed Not Available [facility] 05/26/2022 14:50:57 Influenza, split virus, quadrivalent, preservative 6 completed Not Available [facility] 05/26/2022 14:50:58 Past Encounters Encounter ID Performer Location Encounter Start Date Encounter Closed Date Diagnosis/Indication Diagnosis SNOMED-CT Code Diagnosis ICD10 Code Diagnosis Note [id number] [facility] [address] [place] [address] 08/07/2020 00:00:00 08/07/2020 16:20:58 [id number] [facility] [address] [place] [address] 02/10/2021 00:00:00 02/10/2021 14:28:56 [id number] [facility] [address] [address] 03/18/2021 00:00:00 03/18/2021 17:10:10 [id number] [facility] [address] [place] [address] 12/09/2021 00:00:00 12/09/2021 15:47:54 [id number] [facility] [place] [address] [place] [address] 12/21/2021 00:00:00 12/22/2021 11:11:48 [id number] TREMAINE León [facility] [address] [place] [address] 02/10/2023 13:12:09 02/10/2023 14:09:58 Low back pain 459249204 M54.50 Bilateral sacroiliac joint pain 6615970338 4302857 M53.3 [id number] Je Valladares MD [facility] Internal [facility] [address] [facility] [place] [address] 03/10/2023 15:31:07 03/10/2023 16:15:37 Viral gastroenteritis 256594250 A08.4 much better, rtw tomorrowst ay hydrated [id number] Je Valladares MD [facility] Internal [facility] [address] [facility] [place] [address] 04/18/2024 12:15:16 04/18/2024 13:02:25 Adult health examination 830187209 Z00.00 Colonoscop y- Age 54- Dr. Lay onRimmograshley 2023 (depaul) NL per ptDEXA- OrderedFLU - neededPneu movax- neverCOVID - needs booster Screening for osteoporosis 410995375 Z13.820 Anxiety 40569622 F41.9 under control Steatosis of liver 1007 K76.0 Long-term drug therapy 750290007 Z79.891 Memory impairment 406777 006 R41.3 to see neuro, no memory loss seen on nl conversati on Health Concerns Section Related Observation LastModified by Organization Detai ls LastModified Time None Recorded Concern Status LastModified by Organization Details LastModified Time None Recorded Advance Directives Directive None Recorded Payers Encounter Date Sequence Insurance Name Policy Number Policy Moreno Covered Member ID Moreno Member ID Guarantor Name 02/10/2023 1 [employer] - [employer] [id number] Alondradee dee Parker [id number] Alondra Jessica Parker 03/10/2023 1 [facility] [id number] Alondra Parker [id number] Alondra Parker 04/18/2024 1 [employer] OPEN ACCESS Alondra Parker [id number] Alondra Parker Notes Date Note Type Note Provider Name and Address Organization Details Recorded Time 02/10/2023 text/html Patient returns with recurrent low back pain. She denies any new trauma or injury. She is having some aching pain throughout the lumbar region into the sacroiliac region denies any radicular pain down the legs no numbness or tingling or weakness no bowel or bladder symptoms. She had a similar issue 2 years ago she did very well with the shot of cortisone bilateral sacroiliac bursa. She states she is on Humira and prednisone daily as well to treat chronic rheumatologic disease. She has had her right hip replaced over the last year too. I have not seen her for 2 years. She states she had no new trauma or injury the pain has slowly come on she uses a heating pad and tries to do some stretching exercises but lately her pain has been fairly significant about a 6 on a scale 1-10 she comes in today to talk about repeating cortisone injections since they worked so well for her last time.Past medical history sheet was reviewed and signed on intake sheet of today's date drug allergies current medications family social history previous surgical history 10 point review of systems was reviewed and discussed in detail today with the patient. TREMAINE León [address], [address], [place], [address], [facility] 02/10/2023 14:07:03 03/10/2023 text/html She is here toda y for upset stomach, started Tuesday evening abdominal pain, feeling a little nauseated, did vomit that night and had diarrhea the next day, has no feverhas an autoimmune disease she take Humeria and prednisoneDis not do to work Tuesday, Tuesday and and needs a note to return to work tomorrow.Tested for COVID yesterday and was NEGATIVE no w feeling betterno fever Je Valladares MD [address], [address], [place], [address], [facility] 03/10/2023 16:14:44 04/18/2024 text/html Pt is here today for a Routine follow upShe has not been seen since 02/2023PT IS NOT FASTING ( [employer]) Would like her cholesterol checked as well as other labsAlso worried about her memory, forgets name of people Arthritis- Sees Rheumatology, On medsMeds- Hyrimoz Once every 2 weeks Elevated liver enzymes- seen yarn wrapper Alopecia- since the 1st grade Anxiety- On Meds, still has some anxiety, constantly worries about everything. She does see [facility]- Escitalopram 10mg, Lorazepam 1mg TID as needed Je Valladares MD [address] [place] [address], [address] [address], [place], [address], [place] [facility] 04/18/2024 13:04:12 OBGyn Episode No OBEpisode recorded.
--- OUTSIDE RECORDS SUMMARY | 2024-04-20 02:37 | XMS_ITS | Clinical Summary ---
Author Organization [facility]. Address [address] [place] [address] Care Team Providers Care Airborne Operations Superintendent Name Role Phone Je Valladares MD Primary Care Provider Source Comments [facility],non-owned Affiliates and Associated Physician Practices is amultiple site organization consisting of ambulatory clinics and hospital sitesin [place], [place], [place] and [place]. This disclosure is being madepursuant to the Care Everywhere program and may not contain all information available regarding this patient. Last updated 17.[facility]. Allergies Active Allergy Reactions Criticality Noted Date [...] 14 days 08/26/2021 Active Cholecalciferol 50 MCG (1999 UT) Take 2,000 Units by mouth every [...] 11/10/2016 Abnormal finding on breast imaging 08/26/2016 Encounters Date Type Department Care Team Description 04/12/2024 Travel 03/30/2024 Telephone [facility] [address] [place] [phone] Juan Hubbard MD Appointment 03/27/2024 Telephone [facility] - Nephrology [address] [place] [phone] Ila Raymond RN Concerns from Last 3 Months Family History Medical History Relation Name Comments Diabetes Father Kidney Disease Father fialure Cancer - Breast Maternal Aunt Brielle My moms sis ter Relation Name Status Comments Brother Alive Father Alive Maternal Aunt Brielle Mother Alive Social History Tobacco Use Types Packs/Day Years Used Date Smoking Tobacco: Never Smokeless Tobacco: Never Tobacco Cessation:Counseling Given: Not Answered Alcohol Use Standard Drinks/Week Comments Yes 0 (1 standard drink = 0.6 oz pur e alcohol) socially- a couple on weekends Sex and Gender Information Value Date Recorded Sex Assigned at Female 05/13/2021 5:37 AM VISION SPECIALIST Gender Identity Female 05/13/2021 5:37 AM VISION SPECIALIST Sexual Orientation Not on file Last Filed [...] Info) Description 06/04/2024 12:30 PM CDT Appointment [facility] [address] [place] [phone] Juan Hubbard MD [address] [place] [address] [address] [place] [address] 06/04/2024 1:30 PM CDT Office Visit [facility] - GI [address] [place] [address], [facility] [place] [phone] Juan Hubbard MD [address] [place] [address] [address] [place] [address] Health Maintenance Due Date Last Done Comments COLOGUARD (AGES 45-75) - COLON CA SCREENING 1966 COLON MONITORING 1966 COLONOSCOPY - COLON CA SCREENING 1966 CT COLONOGRAPHY - COLON CA SCREENING 1966 Colorectal Cancer Screening 1966 FIT - COLON CA SCREENING 1966 FLEX SIG - COLON CA SCREENING 1966 PAP SMEAR 1966 HIV SCREENING 1981 DTAP/TDAP/TD VACCINES (1 - Tdap) 1985 HEPATITIS B VACCINE (1 of 3 - 19+ 3-dose series) 1985 PNEUMOCOCCAL VACCINE 50+ (1 of 1 - PCV) 2016 ZOSTER VACCINE (1 of 2) 2016 COVID-19 VACCINE (3 - season) 2023 05/27/2020, 04/24/2020 INFLUENZA VACCINE (#1) 2023 , 01/13/2020, 01/02/2018, Additional history exists DEPRESSION SCREENING 03/28/2024 MAMMOGRAM 06/02/2025 06/03/2023, 030 10/2023, 06/01/2022, Additional history exists LIPID TESTING 01/03/2026 01/03/2021 SCREENING FOR DIABETES 08/18/2026 , 08/17/2022, 01/04/2022, Additional history exists HEPATITIS C SCREENING Completed 12/14/2019 HIB VACCINE Aged Out No longer eligi ble based on patient's age to complete this topic HPV VACCINE Aged Out No longer eligi ble based on patient's age to complete this topic MENINGOCOCCAL (Group B) VACCINE Aged Out No longer eligible based on patient's age to complete this topic MENINGOCOCCAL VACCINE Aged Out No lo usha eligible based on patient's age to complete this topic Goals Goal Patient Goal Type Associated Problems [...] SCREENING W JUDY Routine 06/03/2023 10:43 AM VISION SPECIALIST Encounter for screening mammogram for malignant neoplasm [...] Resulting Agency Comment Lab Testing performed at: [facility] [address] [facility] ??[facility] [phone] Juan Hubbard MD LAB - CHEMISTRY DEE MORRIS [facility] INSURANCE BILL [address] [place] [address] * MAMMO BILAT SCREENING W JUDY (06/03/2023 10:43 AM VISION SPECIALIST) Anatomical Region Laterality Modality Breast Bilateral Mammography 06/03/2023 2:46 PM VISION SPECIALIST Impressions 06/03/2023 2:51 PM VISION SPECIALIST : Annual screening mammography is recommended. OVERALL FINAL ASSESSMENT: ??BI-RADS Category 1: Negative. > Interpreting Provider: Jerri Morris MD on 06/03/2023 2:51 PM Narrative 06/03/2023 2:51 PM VISION SPECIALIST EXAMINATION: BILATERAL DIGITAL SCREENING MAMMOGRAM AND BILATERAL [...] (ABNORMAL) LIPID PROFILE (01/03/2021 10:59 AM CDT) Cholesterol 202(H) 100 - 199 mg/dL [facility] [...] Resulting Agency Comment Lab Testing performed at: [facility] [address] [facility] ??[facility] [phone] Juan Hubbard MD LAB - [facility] [address] [place] [address] * HEPATITIS C ANTIBODY (12/14/2019 3:03 PM CDT) Pathologist [facility] Hepatitis C Antibody <0.1 0.0 - 0.9 s/co ratio [facility] INSURANCE BILL Comment: ? Negative: ? < 0.8 ?Indeterminate: 0.8 - 0.9 ? Positive: ? > 0.9 ? . ?The CDC recommends that a positive HCV antibody result ?be followed up with a HCV Nucleic Acid Amplification ?test (684993). Blood BLOOD SPECIMEN / Unknown 12/14/2019 3:03 PM CDT 12/14/2019 Narrative Resulting Agency Comment [facility]: [facility] [address] [facility] ??[facility] [phone] Latonia Marley PA-C LAB - CHEMISTRY O RDERABLES [facility] INSURANCE BILL [address] [place] [address] from Last 3 Months or Most Recently Relevant to Health Maintenance Care Teams Airborne Operations Superintendent Relationship Specialty Start Date End Date Je Valladares MD [facility] [facility] [address] [place] [address] PCP - General Internal Medicine 04/23/16
--- OUTSIDE RECORDS SUMMARY | 2024-04-20 02:38 | XMS_ITS | Clinical Summary ---
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 Gender Identity Not on file Sexual Orientation Not on file Plan of Treatment Health Maintenance Due Date Last Done Comments DTAP/TDAP/TD VACCINES (1 - Tdap) 1985 HEPATITIS B VACCINES (1 of 3 - 19+ 3-dose series) 1985 CERVICAL CANCER SCREENING 1996 BREAST CANCER SCREENING 06/04/2009 06/04/2008 COLORECTAL SCREENING 07/24/2011 Colorectal Cancer Screening 07/24/2011 FIT-DNA Q 3 years 07/24/2011 FIT/FOBT Q 1 year 07/24/2011 Flex Sig/CT Colonography Q 5 years 07/24/2011 ZOSTER VACCINE (1 of 2) 2016 INFLUENZA VACCINE (#1) 2023 PNEUMOCOCCAL VACCINE 0-64 YEARS Aged Out No longer eligible based on patient's age to complete this topic Procedures Procedure Name Priority Date/Time Associated Diagnosis Comments MAMMO DIAGNOSTIC UNI LEFT W OR WO CAD Routine 06/04/2008 12:55 PM CDT from Last 3 Months or Most Recently Relevant to Health Maintenance Results * MAMMO DIGITAL DIAG UNI LEFT (06/04/2008 12:55 PM CDT) Anatomical Region Laterality Modality Breast Left Other 06/04/2008 12:5 5 PM CDT Narrative 06/05/2008 7:39 AM CDT ? [facility] [address] ?[place] ??[id number] ?Admit Date: 06/04/2008 ?CB, ALONDRA L ?Sex: F ?Admit Prov: LESLIE LOPEZ ? Date: 1965 ?Primary Care Prov: ? CMRN: [id number] ?Room: MDB-A ?SSN: [id number] ? IMAGING SERVICES ?Ordering Prov: LESLIE LOPEZ ? Accession Number: [id number] ?Interpretation ? LEFT BREAST STEREOTACTIC CORE BIOPSY WITH TISSUE MARKER PLACEMENT, SPECIMEN ? RADIOGRAPH, LEFT BREAST FULL FIELD DIGITAL DIAGNOSTIC MAMMOGRAM WITH CAD. ? 06/04/08 ? History: The patient had outside imaging performed [facility] which demonstrated left breast microcalcifications. ? Stereotactic core biopsy has been recommended. ? Procedure and Findings: The risks and potential benefits of the procedure ? were discussed with the patient and written informed consent was obtained. ? The patient was placed in the prone position on the stereotactic table with ? the breast in mediolateral compression and the area of interest was ? localized and targeted utilizing digital imaging with stereotactics. ? After sterile preparation of the skin, 1% lidocaine was utilized for local ? anesthesia at the skin puncture site and 2% lidocaine with epinephrine was ? utilized for deeper local anesthesia/hemostasis about the biopsy site. A 9 ? gauge Augmenix vacuum assisted biopsy needle was advanced to the level of the ? calcifications of interest from a mediolateral approach using stereotactic ? guidance and a total of 7 tissue cores were obtained. ? The specimen radiograph demonstrated that multiple microcalcifications are ? included within the tissue cores. A tissue marker clip was then placed at ? the biopsy site. The needle was removed and hemostasis was achieved. A ? sterile bandage and an ice pack were applied. ??The patient tolerated the ? procedure well and there is no evidence of significant immediate ? complication. The patient was given verbal as well as written ? postprocedural instructions prior to release from the department. The ? tissue cores were submitted to surgical pathology in formalin for ? histologic analysis. ? A two-view left unilateral digital mammogram was obtained postprocedure and ? this demonstrated that the tissue marker clip is in the expected location. ? Impression: ??Technically successful stereotactic core biopsy with tissue ? marker placement. ? Assessment BIRADS: ??Post procedure mammograms for marker placement ? Recommendation: ??No recommendation required ? Dictated by: ??PATELBETTY CannonRI Jessica ? Electronically signed by: ??LUCITA PATEL ??06/05/2008 07:38 ? Transcribed: ??06/04/2008 14:27 ?[facility] Procedure Note Patel, Lucita - 06/05/2008 [facility] [address] [place], [place] [address] Admit Date: 06/04/2008 ALONDRA PARKER Sex: F Admit Prov: LESLIE LOPEZ Date: 1965 Primary Care Prov: CMRN: [id number] Room: [facility] SSN: [address] [place] [address] IMAGING SERVICES Ordering Prov: LESLIE LOPEZ Interpretation LEFT BREAST STEREOTACTIC CORE BIOPSY WITH TISSUE MARKER PLACEMENT,SPECIMEN RADIOGRAPH, LEFT BREAST FULL FIELD DIGITAL DIAGNOSTIC MAMMOGRAM WITHCAD. 06/04/08 History: The patient had outside imaging performed at [facility] which demonstrated left breastmicrocalcifications. Stereotactic core biopsy has been recommended. Procedure and Findings: The risks and potential benefits of theprocedure were discussed with the patient and written informed consent wasobtained. The patient was placed in the prone position on the stereotactictable with the breast in mediolateral compression and the area of interest was localized and targeted utilizing digital imaging withstereotactics. After sterile preparation of the skin, 1% lidocaine was utilized forlocal anesthesia at the skin puncture site and 2% lidocaine withepinephrine was utilized for deeper local anesthesia/hemostasis about the biopsysite. A 9 gauge Augmenix vacuum assisted biopsy needle was advanced to the levelof the calcifications of interest from a mediolateral approach usingstereotactic guidance and a total of 7 tissue cores were obtained. The specimen radiograph demonstrated that multiplemicrocalcifications are included within the tissue cores. A tissue marker clip was thenplaced at the biopsy site. The needle was removed and hemostasis was achieved.A sterile bandage and an ice pack were applied. The patient toleratedthe procedure well and there is no evidence of significant immediate complication. The patient was given verbal as well as written postprocedural instructions prior to release from the department.The tissue cores were submitted to surgical pathology in formalin for histologic analysis. A two-view left unilateral digital mammogram was obtainedpostprocedure and this demonstrated that the tissue marker clip is in the expectedlocation. Impression: Technically successful stereotactic core biopsy withtissue marker placement. Assessment BIRADS: Post procedure mammograms for marker placement Recommendation: No recommendation required Dictated by: LUCITA PATEL Electronically signed by: LUCITA PATEL 06/05/2008 07:38 Transcribed: 06/04/2008 14:27 [facility] us Leslie Lopez MD MAMMO ORDERABLES Final Resul t from Last 3 Months or Most Recently Relevant to Health Maintenance Insurance BLUE ACCESS/TRUE BLUE PPO Care Teams Director Surgical Relationship Specialty Start Date End Date Je Valladares MD PCP - General 05/28/08
--- OUTSIDE RECORDS SUMMARY | 2024-04-20 02:38 | XMS_ITS | Encounter Summary ---
Author Organization [facility] Address [address] [place] [address] Care Team Providers Care Credit Rating Checker Name Role Phone Je Valladares MD Primary Care Provider [phone] Encounter Details Date Type Department Care Team (Latest Contact Info) Description 06/04/2008 Outpatient Historical [facility] Lopez, Leslie Velasquez MD [address] [place] [address] [place] [phone] Abnormal Mammogram, Unspecified Social History Tobacco Use Types Packs/Day Years Used Date Smoking Tobacco: Never Assessed Comments Unknown Sex and Gender Information Value Date Recorded Sex Assigned at Not on file 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 Gender Identity Not on file Sexual Orientation Not on file documented as of this encounter Plan of Treatment Not on file documented as of this encounter Procedures Procedure Name Priority Date/Time Associated Diagnosis Comments PATHOLOGY Routine 06/04/2008 5:00 PM CDT MAMMO STEREOTACTIC BREAST BX LT Routine 06/04/2008 12:55 PM CDT XR CONSULTATION Routine 06/04/2008 12:55 PM CDT MAMMO DIAGNOSTIC UNI LEFT W OR WO CAD Routine 06/04/2008 12:55 PM CDT MAMMO BREAST SPECIMEN LT Routine 06/04/2008 12:55 PM CDT documented in this encounter Results * PATHOLOGY (06/04/2008 5:00 PM CDT) FINAL REPORT ?[facility] ?[address] ? [place], [place] ??[address] ? Patient: ??ALONDRA PARKER ? : ??1965 ? Procedure Date: ??06/04/2008 ? Accession Date: ??06/05/2008 ? Case No: ??[id number] ? Ordering Dr: ??SARIKA PATEL ? Case types AW, BW, FW, NW and SH are performed by [facility] Ctr, [place], [place] ?SURGICAL PATHOLOGY & NON-GYNECOLOGIC CYTOPATHOLOGY REPORT ? DIAGNOSIS ? LEFT BREAST, STEREOTACTIC 9-GAUGE CORE BIOPSY: ? - FIBROCYSTIC CHANGES. ? - RARE MICROCALCIFICATIONS PRESENT (CALCIUM OXALATE). ? Specimen Description: ? Left breast calcifications in formalin at 12:25. ? Operative Procedure: ? Left breast stereotactic core biopsy, 6-9 gauge cores. ? Patient Information/History/Di agnosis: ? Left breast microcalcifications, fibrocystic change versus DCIS. ? Gross: ? Received in one container labeled Alondra Erickson, left breast ? calcifications are 12 fibrofatty tissue cores, 0.8 cm, 0.9 cm, 1.0 cm, 0.8 ? cm, 0.5 cm, 1.0 cm, 0.9 cm, 5.0 cm, 3.9 cm, 2.1 cm, 2.6 cm, and 3.2 cm in ? lengths and ranging in diameter from 0.1 cm to 0.4 cm. Also received are ? nine core fragments ranging from 0.2 cm to 0.4 cm. The specimen is ? submitted entirely in blocks A1 through A5. ? [facility] 06.05.2008 12:06 pm ? Microscopic: ? Sections are labeled [id number], Alondra Erickson. ? The core biopsy from the left breast displays fibrocystic changes. No ? microcalcifications are seen in the initial sections The blocks are taken ? to Radiology where they are x-rayed. The radiologist indicates probable ? microcalcifications in blocks A1 and A3. Deeper levels are obtained of ? these blocks. Rare microcalcifications (calcium oxalate) are identified in ? the deeper levels of block A3, in ducts lined by apocrine metplastic cells. ? The findings appear benign throughout. ? COMMENT: Certain proliferative lesions identified in breast biopsies are ? associated with an increased relative risk for the development of invasive ? carcinoma. The relative risks are compared to the risks for women who have ? not had a biopsy. The relative risks associated with specific entities are ? listed below. ? 1. ??No increased risk: adenosis; duct ectasia; fibrosis; fibroadenoma ? (without complex ? features); mild hyperplasia without atypia; cysts; apocrine or squamous ? metaplasia; ? 2. ??Slightly increased risk (1.5- to 2.0-fold): fibroadenoma with complex ? features; moderate or florid hyperplasia without atypia; sclerosing ? adenosis; papilloma; ? 3. ??Moderately increased risk (4.0- to 5.0-fold): atypical lobular ? hyperplasia; atypical ductal hyperplasia; ? 4. ??Markedly increased risk (8.0- to 10.0-fold): ductal carcinoma in situ; ? atypical lobular hyperplasia or atypical ductal hyperplasia when there is ? also a family history of breast carcinoma affecting a first-degree ? relative. ? Reference: Arch Pathol Lab Med 1998;122:2817-7522. ? CARRIEK/ALEXANDRO 06.07.2008 08:41 am ? Staging Form: ? No ? ELECTRONIC SIGNATURE FOR ALANNA HARRIS M.D.- 06/07/08 10:47 am INTERFACE SYSTEM 06/04/2008 5:00 PM CDT us Sarika Lin MD PATHOLOGY/CYTOLOGY ORDERABL ES Final Result INTERFACE SYSTEM Refer to clinic/hospital department * MAMMO STEREOTACTIC BREAST BX LT (06/04/2008 12:55 PM CDT) Anatomical Region Laterality Modality Breast Left Other 06/04/2008 12:5 5 PM CDT Narrative 06/05/2008 7:39 AM CDT ? [facility] ? [address] ?. [place], [place] ??[address] ?Admit Date: 06/04/2008 ?ALONDRA PARKER ?Sex: F ?Admit Prov: LESLIE LOPEZ ? Date: 1965 ?Primary Care Prov: ? CMRN: [id number] ?Room: [facility] ?SSN: [id number] ? IMAGING SERVICES ?Ordering Prov: LESLIE LOPEZ ? Accession Number: [id number] ?Interpretation ? LEFT BREAST STEREOTACTIC CORE BIOPSY WITH TISSUE MARKER PLACEMENT. ??06/04/08 ? History: The patient had outside imaging performed [facility] which demonstrated left breast microcalcifications. [...] the biopsy site. A 9 ? gauge [employer] vacuum assisted biopsy needle was advanced to [...] Recommendation: ??No recommendation required ? Dictated by: ??SARIKA PATEL ? Electronically signed by: ??SARIKA PATEL ??06/05/2008 07:38 ? Transcribed: ??06/04/2008 14:27 ?AMK Procedure Note Sarika Patel - 06/05/[address] [address] Admit Date: 06/04/2008 ALONDRA PARKER Sex: F Admit Prov: LESLIE LOPEZ Date: 1965 Primary Care Prov: CMRN: [id number] Room: ORALIASaray SSN: [id number] IMAGING SERVICES Ordering Prov: LESLIE LOPEZ Interpretation LEFT BREAST STEREOTACTIC CORE BIOPSY WITH TISSUE MARKER PLACEMENT.06/04/08 History: The patient had outside imaging performed at [facility] which demonstrated left breastmicrocalcifications. Stereotactic [...] anesthesia/hemostasis about the biopsysite. A 9 gauge [employer] vacuum assisted biopsy needle was advanced to [...] placement Recommendation: No recommendation required Dictated by: SARIKA PATEL Electronically signed by: SARIKA PATEL 06/05/2008 07:38 Transcribed: 06/04/2008 14:27 AMK us Leslie Lopez MD MAMMO ORDERABLES Final Resul t * XR CONSULTATION (06/04/2008 12:55 PM CDT) Anatomical Region Laterality Modality Other 06/04/2008 12:5 5 PM CDT Narrative 06/07/2008 4:30 PM CDT ? [facility] ? [address] [facility] ?[facility] ??[address] ?Admit Date: 06/04/2008 ?CB, ALONDRA L ?Sex: F ?Admit Prov: LESLIE LOPEZ ? Date: 1965 ?Primary Care Prov: ? CMRN: [id number] ?Room: MDB-A ?SSN: [id number] ? IMAGING SERVICES ?Ordering Prov: LESLIE LOPEZ ? Accession Number: [id number] ? Addendum ? ADDENDUM TO LEFT BREAST STEREOTACTIC CORE BIOPSY 06/04/2008: ? The pathology from the patient's recent left breast stereotactic core ? biopsy reveals fibrocystic changes; rare microcalcifications ??are present ? (calcium oxalate). These findings are benign and concordant. The patient ? will be informed of the above findings by Dr. Lopez's office. The patient ? should return to annual mammography. ? Dictated by: ??SARIKA PATEL ? Electronically signed by: ??SARIKA PATEL ? 06/07/2008 16:30 ? Transcribed: ??06/07/2008 16:26 ?SDJ ?Interpretation ? LEFT BREAST STEREOTACTIC CORE BIOPSY WITH TISSUE MARKER PLACEMENT. ??06/04/08 ? History: The patient had outside imaging performed at [facility] which demonstrated left breast microcalcifications. [...] the biopsy site. A 9 ? gauge [employer] vacuum assisted biopsy needle was advanced to [...] core biopsy with tissue ? marker placement. ?Report revised on 06/07/2008 4:30:15 PM by SARIKA PATEL ? Dictated by: ??SARIKA PATEL ? Electronically signed by: ??SARIKA PATEL ? 06/05/2008 07:38 ? Transcribed: ??06/04/2008 14:27 ?AMK Procedure Note Sarika Patel - 06/07/[address] [address] Admit Date: 06/04/2008 ALONDRA PARKER Sex: F Admit Prov: LESLIE LOPEZ Date: 1965 Primary Care Prov: CMRN: [id number] Room: BASSAM SSN: [id number] IMAGING SERVICES Ordering Prov: LESLIE LOPEZ Addendum ADDENDUM TO LEFT BREAST STEREOTACTIC CORE BIOPSY 06/04/2008: The pathology from the patient's recent left breast stereotacticcore biopsy reveals fibrocystic changes; rare microcalcifications arepresent (calcium oxalate). These findings are benign and concordant. Thepatient will be informed of the above findings by Dr. Lopez's office. Thepatient should return to annual mammography. Dictated by: SARIKA PATEL Electronically signed by: SARIKA PATEL 06/07/2008 16:30 Transcribed: 06/07/2008 16:26 SDJ Interpretation LEFT BREAST STEREOTACTIC CORE BIOPSY WITH TISSUE MARKER PLACEMENT.06/04/08 History: The patient had outside imaging performed at [facility] which demonstrated left breastmicrocalcifications. Stereotactic [...] anesthesia/hemostasis about the biopsysite. A 9 gauge [employer] vacuum assisted biopsy needle was advanced to [...] successful stereotactic core biopsy withtissue marker placement. Report revised on 06/07/2008 4:30:15 PM by SARIKA PATEL Dictated by: SARIKA PATEL Electronically signed by: SARIKA PATEL 06/05/2008 07:38 Transcribed: 06/04/2008 14:27 AMK us Leslie Lopez MD DIAGNOSTIC IMAGING ORDERABLE S Edited * MAMMO DIGITAL DIAG UNI LEFT (06/04/2008 12:55 PM CDT) Anatomical Region Laterality Modality Breast Left Other 06/04/2008 12:5 5 PM CDT Narrative 06/05/2008 7:39 AM CDT ? [facility] ? [address] ?[place], [place] ??[address] ?Admit Date: 06/04/2008 ?CB, ALONDRA L ?Sex: F ?Admit Prov: ORUWARI, LESLIE ? Date: 1965 ?Primary Care Prov: ? CMRN: [id number] ?Room: MDB-A ?SSN: [id number] ? IMAGING SERVICES ?Ordering Prov: ORUWARI, LESLIE ? Accession Number: [id number] ?Interpretation ? LEFT BREAST STEREOTACTIC CORE BIOPSY WITH TISSUE MARKER PLACEMENT, SPECIMEN ? RADIOGRAPH, LEFT BREAST FULL FIELD DIGITAL DIAGNOSTIC MAMMOGRAM WITH CAD. ? 06/04/08 ? History: The patient had outside imaging performed at [facility] which demonstrated left breast microcalcifications. [...] the biopsy site. A 9 ? gauge [employer] vacuum assisted biopsy needle was advanced to [...] Recommendation: ??No recommendation required ? Dictated by: ??SARIKA PATEL ? Electronically signed by: ??SARIKA PATEL ??06/05/2008 07:38 ? Transcribed: ??06/04/2008 14:27 ?AMK Procedure Note Sarika Patel - 06/05/2008 [facility] [address] [facility] [place], [place] [address] Admit Date: 06/04/2008 ALONDRA PARKER Sex: F Admit Prov: LESLIE LOPEZ Date: 1965 Primary Care Prov: CMRN: [id number] Room: BASSAM SSN: [id number] IMAGING SERVICES Ordering Prov: LESLIE LOPEZ Interpretation LEFT BREAST STEREOTACTIC CORE BIOPSY WITH TISSUE MARKER PLACEMENT,SPECIMEN RADIOGRAPH, LEFT BREAST FULL FIELD DIGITAL DIAGNOSTIC MAMMOGRAM WITHCAD. 06/04/08 History: The patient had outside imaging performed at [facility] which demonstrated left breastmicrocalcifications. Stereotactic [...] anesthesia/hemostasis about the biopsysite. A 9 gauge [employer] vacuum assisted biopsy needle was advanced to [...] placement Recommendation: No recommendation required Dictated by: SARIKA PATEL Electronically signed by: SARIKA PATEL 06/05/2008 07:38 Transcribed: 06/04/2008 14:27 AMK us Leslie Lopez MD MAMMO ORDERABLES Final Resul t * MAMMO BREAST SPECIMEN LT (06/04/2008 12:55 PM CDT) Anatomical Region Laterality Modality Breast Left Other 06/04/2008 12:5 5 PM CDT Narrative 06/05/2008 7:39 AM CDT ? [facility] ? [address] ?. [place], [place] ??[address] ?Admit Date: 06/04/2008 ?ALONDRA PARKER L ?Sex: F ?Admit Prov: LESLIE LOPEZ ? Date: 1965 ?Primary Care Prov: ? CMRN: [id number] ?Room: NJB-A ?N: [id number] ? IMAGING SERVICES ?Ordering Prov: LESLIE LOPEZ ? Accession Number: [id number] ?Interpretation ? LEFT BREAST STEREOTACTIC CORE BIOPSY WITH TISSUE MARKER PLACEMENT. ??06/04/08 ? History: The patient had outside imaging performed at [facility] which demonstrated left breast microcalcifications. [...] the biopsy site. A 9 ? gauge [employer] vacuum assisted biopsy needle was advanced to [...] biopsy with tissue ? marker placement. ? Dictated by: ??SARIKA PATEL ? Electronically signed by: ??SARIKA PATEL ??06/05/2008 07:38 ? Transcribed: ??06/04/2008 14:27 ?AMK Procedure Note Sarika Patel - 06/05/[address] [address] Admit Date: 06/04/2008 ALONDRA PARKER Sex: F Admit Prov: AZRAIRENALINDSAYLESLIE Date: 1965 Primary Care Prov: CMRN: [id number] Room: BASSAM SSN: [id number] IMAGING SERVICES Ordering Prov: LESLIE LOPEZ Interpretation LEFT BREAST STEREOTACTIC CORE BIOPSY WITH TISSUE MARKER PLACEMENT.06/04/08 History: The patient had outside imaging performed at [facility] which demonstrated left breastmicrocalcifications. Stereotactic [...] anesthesia/hemostasis about the biopsysite. A 9 gauge [employer] vacuum assisted biopsy needle was advanced to [...] successful stereotactic core biopsy withtissue marker placement. Dictated by: SARIKA PATEL Electronically signed by: SARIKA PATEL 06/05/2008 07:38 Transcribed: 06/04/2008 14:27 AMK us Leslie Lopez MD MAMMO ORDERABLES Final Resul t documented in this encounter Visit Diagnoses Diagnosis Abnormal mammogram, unspecified documented in this encounter Care Teams Credit Rating Checker Relationship Specialty Start Date End Date Je Valladares MD PCP - General 05/28/08 documented as of this encounter
--- OUTSIDE RECORDS SUMMARY | 2024-04-20 02:38 | XMS_ITS | Encounter Summary ---
Author Organization [facility] Health Address [address] [place] [address] Care Team Providers Care Seasoner Hand Name Role Phone Je Valladares MD Primary Care Provider Encounter Details Date Type Department Care Team (Late st Contact Info) Description 04/28/2016 [facility] Outpatient Visit [facility] [address] [place] [address] [place] [id number] [place] [phone] Social History Tobacco Use Types Packs/Day Years Used Date Smoking Tobacco: Never Smokeless Tobacco: Never Alcohol Use Standard Drinks/Week Comments Yes 0 (1 standard drink = 0.6 oz pur e alcohol) 2 a week Sex and Gender Information Value Date Recorded Sex Assigned at Female 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/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 Gender Identity Female 05/13/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 Sexual Orientation Not on file documented as of this encounter Plan of Treatment Upcoming Encounters Date Type Department Care Team (Late st Contact Info) Description 06/04/2024 12:30 PM CDT Appointment [facility] [address] [place] [address] Juan Hubbard MD [facility] [address] 06/04/2024 1:30 PM CDT Office Visit [facility] [place] [address] [place] [address], [place] [address] Juan Hubbard MD [address] [address] documented as of this encounter Visit Diagnoses Not on filedocumented in this encounter Care Teams Seasoner Hand Relationship Specialty [place] [address] [place] [phone] PCP - General Internal Medicine 04/23/16 documented as of this encounter
--- OUTSIDE RECORDS SUMMARY | 2024-04-20 02:38 | XMS_ITS | Referral Summary ---
Author Organization [facility] Address [address] [place] [address] Care Team Providers Care Process Supervisor Name Role Phone Je Valladares MD Primary Care Provider [phone] Allergies Active Allergy Reactions Criticality Noted Date Comments Sulfa (Sulfonamide Antibiotics) Other (See comments) Low 10/07/2017 Medications LORazepam (ATIVAN) 1 mg tabletIndication s:anxiety Take 1 tablet (1 mg total) by mouth 2 (two) times a day Active escitalopram (LEXAPRO) 10 mg tabletIndication s:Anxiety with Depression Take 1 tablet (10 mg total) by mouth every morning Active progesterone (PROMETRIUM) 100 mg capsule Take 1 capsule (100 mg total) by mouth daily 12 capsule 3 4 Active estradioL (VIVELLE-DOT) 0.025 mg/24 hrIndications:Ho rmone replacement therapy Place 1 patch on the skin 2 (two) times a week 24 patch 3 4 Active predniSONE (DELTASONE) 5 mg tabletIndication s:Psoriatic arthritis (HCC) Take 1 tablet (5 mg) by mouth daily 90 tablet 1 4 Active estradioL 4 mcg insert, dose packIndications: Vaginal atrophy Insert 1 suppository into the vagina nightly for 18 days 18 each 4 Active adalimumab-adaz (Hyrimoz,CF, Pen) 40 mg/0.4 mL pen injector Inject 40 mg under the skin every 14 (fourteen) days 2.4 mL 1 4 Active Active Problems Problem Noted Date Diagnosed Date Vaginal atrophy 12/02/2023 Assessment & Plan (12/02/2023 10:44 AM CDT): -vaginal atrophy. Very superficial laceration. Small amount of vaginal discharge. BV and yeast culture obtained today. -discussed with vaginal estrogen which may improve her symptoms. Also discussed continued and more frequent use of coconut oil. -patient wishes to start using vaginal estrogen. Prefers tablets. We will continue transdermal estradiol and progesterone orally. -encouraged monthly self-breast examination Pap smear performed May 2023. -UA to be sent. 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 No fever no frequency no flank pain. Discussed possibility of UTI but less likely. Possibilities include interstitial cystitis and other. Urinalysis was sent today no retreatment performed today patient wishes to have a pelvic ultrasound to rule out gynecologic abnormalities. Encouraged her to consider urologic evaluation. We discussed letter indicating concern for possible increased risk for developing breast cancer and recommendation for genetic counseling. Patient will return for a well-woman next reinier and she is scheduled for a mammogram in May as well Hallux valgus of left foot 12/07/2021 Hammertoe of left foot 12/07/2021 Primary osteoarthritis of right hip 03/19/2021 Overview (03/19/2021): Added automatically from request for surgery [id number] High risk medication use 01/07/2021 Assessment & Plan (01/07/2021 5:30 PM CDT): On Xeljanz and prednisone for psoriatic arthritis . Patient has had baseline CBC, CMP, HBV, HCV and TB screening. Lipid panel was not concerning. -Yearly TB screening while on Xeljanz -CBC and CMP every 3 months -Ok to continue above medications unless results from above testing are concerning Atherosclerotic heart diseas e of [place] coronary artery without angina pectoris 12/22/2020 Current tear of medial cartilage or meniscus of knee 12/22/2020 Endometriosis 07/09/2020 Psoriatic arthritis (CMS/HCC) 07/09/2020 Assessment & Plan (01/07/2021 5:25 PM CDT): Seems to be well controlled on Xeljanz and prednisone 5 mg daily. Will consider weaning pred at next appointment. Her current joint pain is likely from OA and does not seem inflammatory in nature. -Continue Xeljanz 5 mg BID and pred 5 mg daily Alopecia 07/09/2020 Anxiety 02/01/2020 Elevated liver enzymes 02/01/2020 Overview (12/22/2020): 02/01/20 Fibroscan CAP 275, LSM 4.5 kPa Low back pain 02/01/2020 Well adult health check 02/22/2017 Assessment & Plan (06/08/2023 11:45 AM CDT): Well-woman examination. Pap smear obtained. Patient does have some discomfort in the left lower abdomen no masses no rebound no guarding. Ultrasound negative. She does also complain of some left lateral breast discomfort upon palpation. Mammogram negative. Discussed possibilities would include musculoskeletal, adhesive, or other etiologies for her lower abdominal discomfort. She will continue to see Dr. Kincaid of Urology. Encouraged monthly self-breast examinations. Hemangioma 11/10/2016 Liver hemangioma 11/10/2016 Chest pressure 10/01/2016 Shortness of breath 10/01/2016 Abnormal finding on breast imaging 08/26/2016 Osteoarthritis of multiple joints 03/07/2015 Assessment & Plan (01/07/2021 5:27 PM CDT): This likely the source of her ongoing pain. She will be seeking out injection for her back. 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 Not on file Not on file Last Filed Vital Signs Vital Sign Reading Time Taken Comments Blood Pressure 117/78 12/21/2023 12:47 PM CDT Pulse 83 12/21/2023 12:47 PM CDT Temperature 37.1 ??C (98.7 ??F) 12/21/2023 12:47 PM C DT Respiratory Rate 18 05/26/2021 2:[address] 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 Oxygen Saturation 97% 01/14/2022 2:26 PM CDT Inhaled Oxygen Concentration - - Weight 72.6 kg (160 lb 1.3 oz) 12/21/2023 12:47 PM CDT Height 160 cm (5' 3 ) 12/21/2023 12:47 PM CDT Body Mass Index 28.36 12/21/2023 12:47 PM CDT Plan of Treatment Not on file Medical Devices Implanted Type Area Ticket Collector Device Identifier Shelf Expiration Date Model / Serial / Lot [employer] [id number] Procotyl Prime 50mm Shell Acetabular Sterile - Sna - [id number] Implanted:Qty: 1 on 05/26/2021 by Daniel Valencia MD at [facility] Other - see comments Right: Hip [employer] [id number] 12/16/2028 [id number] / NA / [id number] Description:Implant pause pe rformed [employer] [id number] Procotyl Prime 36mm Liner Acetabular Sterile Latex Free - Sna - [id number] Implanted:Qty: 1 on 05/26/2021 by Daniel Valencia MD at [facility] Other - see comments Right: Hip [employer] [id number] 10/29/2028 [id number] / NA / [id number] Description:Implant pause pe rformed [employer] [id number] Hip 3 High Offset Stem Femoral Sterile Latex Free - Sna - [id number] Implanted:Qty: 1 on 05/26/2021 by Daniel Valencia MD at [facility] Other - see comments Right: Hip [employer] [id number] 08/15/2028 [id number] / NA / [id number] Description:Implant pause pe rformed [employer] [id number] Procotyl 36mm 12/14 Large Head Femoral Biolox Delta Sterile - Sna - [id number] Implanted:Qty: 1 on 05/26/2021 by Daniel Valencia MD at [facility] Other - see comments Right: Hip [employer] [id number] 10/05/2027 [id number] / NA / [id number] Description:Implant pause pe rformed [employer] [id number] Dynasty Lineage 6.5mm 40mm Acetabular Screw Bone Biofoam - Sna - [id number] Implanted:Qty: 1 on 05/26/2021 by Daniel Valencia MD at [facility] Screw Right: Hip [employer] [id number] 10/16/2028 [id number] / NA / [id number] Description:Implant pause pe rformed [employer] [id number] Dynasty Lineage 6.5mm 25mm Acetabular Screw Bone Biofoam - Sna - [id number] Implanted:Qty: 1 on 05/26/2021 by Daniel Valencia MD at [facility] Screw Right: Hip [employer] [id number] 08/02/2026 [id number] / NA / [id number] Description:Implant pause pe rformed Procedures Procedure Name Priority Date/Time Associated Diagnosis Comments PAP WITH REFLEX TO HIGH RISK HPV Routine 06/08/2023 11:46 AM CDT Well woman exam with routine gynecological exam from Last 3 Months or Most Recently Relevant to Health Maintenance Results * Pap with reflex to High Risk HPV and Genotyping (Cytology Component) (06/08/2023 11:46 AM CDT) Thin prep (Pap test) 06/08/2023 11:46 AM CDT 06/11/2023 6:58 AM CDT Narrative PATHOLOGY [facility] - 06/14/2023 2:21 PM CDT EPIC results best viewed via link to PDF [address] ??[address] Tele: ?? Zofia Mustafa MD - Professor Of Business CYTOLOGY REPORT Note to Patients: This report may contain a detailed description of human tissue sent by a health care provider to the laboratory for pathologic evaluation. The content of this report is essential for diagnosis and may provide important critical findings. This information may be unfamiliar to patients to review without a medical professional present. It is advised that the patient review this report in the presence of a health care provider who can answer questions and explain the details. Patient Name: ??ALONDRA PARKEROdalis Address: ??[address] [place] [address] Gender: ??F : ??1965 (Age: 57) Service: ?? Location: ?? Hospital #: ??[id number] Patient Type: ??[facility] SPECIMEN Taken: ??06/08/2023 Reported: ??06/14/2023 Physician(s): ? Dr. Yang Perkins M.D. FINAL DIAGNOSIS: SOURCE OF SPECIMEN ?- ThinPrep Pap w/ reflex HPV: STATEMENT OF ADEQUACY Source: ??Cervical/Endocervical ?- Satisfactory for interpretation ?- Endocervical/Transformation zone component absent or insufficient ?- Case screened using computer assisted imaging technology and manually re-screened by a psychiatric nurse practitioner. ? GENERAL CATEGORIZATION: ?- Negative for intraepithelial lesion or malignancy ? cad/06/14/2023 14:21Deanne Irving M.S., CT (ASCP) Report Reviewed and Electronically Signed By ??Deanne Irving M.S., CT (ASCP)Clerical Data Follow A; [id number] REPORT IMAGES AND/OR SCANNED DOCUMENTS ONLY VIEWABLE IN PDF FORMAT The Pap test is a screening test used to aid in the detection of cervical cancer and its precursors. It should not be the sole means by which malignant and premalignant lesions are diagnosed. ??Both false negative and false positive results may occur. ??It also has poor sensitivity for the detection of endometrial lesions and should not be used to evaluate suspected endometrial abnormalities. ??For these reasons it is most important to obtain Pap tests at regular intervals, as recommended by your physician or nurse practitioner. Yang Perkins MD LAB CYTOLOGY ORDERABLES Lili montalvo Result PATHOLOGY [facility] Laboratory Receiving [address] [place] [address] from Last 3 Months or Most Recently Relevant to Health Maintenance Insurance [facility] [id number] [facility] [id number] Advance Directives For more information, please contact: [phone] * Full Code (Latest Code Status on File) Date Activated Date Inactivated Comments 05/26/2021 11:34 AM 05/26/2021 11:35 PM Care Teams Process Supervisor Relationship Specialty Start Date End Date Je Valladares MD PCP - General 02/08/20
--- OUTSIDE RECORDS SUMMARY | 2024-04-20 02:38 | XMS_ITS | Encounter Summary ---
Author Organization [facility] Address [address] [place] [address] Care Team Providers Care Hematologist Oncologist Name Role Phone Je Valladares MD Primary Care Provider Reason for Visit * Reason Onset Date Comments Appointment 03/30/2024 Encounter Details Date Type Department Care Team (Late st Contact Info) Description 03/30/2024 Telephone [facility] - GI [address] [place] [address], [place] [id number] Juan Hubbard MD [address] [place] [address] OF GASTROENTEROLOGY [place], [place] [id number] Appointment Social History Tobacco Use Types Packs/Day Years Used Date Smoking Tobacco: Never Smokeless Tobacco: Never Alcohol Use Standard Drinks/Week Comments Yes 0 (1 standard drink = 0.6 oz pur e alcohol) socially- a couple on weekends Sex and Gender Information Value Date Recorded Sex Assigned at Female 05/13/2021 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 If not able to get local US, will need to see when Dr Hubbard can see her COMPONENT ENGINEER * Telephone Encounter - Michaela Blas, RN - 03/30/2024 3:17 PM CST LVM at 3pm that clinic is closed until 1 pm and she can still can come then COMPONENT ENGINEER * Telephone Encounter - Michaela Blas, RN - 03/30/2024 12:50 PM CST Patient has US and OV 04/02/24 [facility] US is rescheduling patients to another date/time due to weather forecast. Patient prefers to have US and OV together. Currently, there are no openings for US on 04/10/24. LVM to see if patient would like to have US local, try to see if there is a cancellation that comesup for 04/10/24 or reschedule both all together for a later day/time. If she prefers the latter, will need to coordinate with Dr Hubbard COMPONENT ENGINEER documented in this encounter Plan of Treatment Upcoming Encounters Date Type Department Care Team (Late st Contact Info) Description 06/04/2024 12:30 PM CDT Appointment [facility] [address] [place] [phone] Juan Hubbard MD [address] [place] [address] [address] [place] [address] 06/04/2024 1:30 PM CDT Office Visit [facility] - GI [address] [place] [address], [place] [phone] Juan Hubbard MD [address] [place] [address] [address] [place] [address] Scheduled Orders Name Type Priority Associated Diagnoses Orde r Schedule HEPATIC FUNCTION PANEL Lab Routine Elevated liver enzymes Fatty (change of) liver, not elsewhere classified 1 Occurrences starting 04/17/2024 until 05/12/2025 CBC W/ DIFFERENTIAL Lab Routine Elevated liver enzymes Fatty (change of) liver, not elsewhere classified 1 Occurrences starting 04/17/2024 until 05/12/2025 BASIC METABOLIC PANEL (CALCIUM TOTAL) Lab Routine Elevated liver enzymes Fatty (change of) liver, not elsewhere classified 1 Occurrences starting 04/17/2024 until 05/12/2025 documented as of this encounter Goals Goal Patient Goal Type Associated Problems [...] one week prior to your last dose documented as of this encounter Visit Diagnoses Diagnosis Elevated liver enzymes- Primary Nonspecific elevation of levels of transaminase or lactic acid dehydrogenase (LDH) Fatty (change of) liver, not elsewhere classified documented in this encounter Care Teams Hematologist Oncologist Relationship Specialty Start Date End Date Je Valladares MD [address] [phone] PCP - General Internal Medicine 04/23/16 documented as of this encounter
--- OUTSIDE RECORDS SUMMARY | 2024-04-20 02:38 | XMS_ITS | Patient Health Summary ---
Author Organization [facility] Address [address] [place] [address] Care Team Providers Care Pharmacist Critical Care Name Role Phone Je Valladares MD Primary Care Provider Note from [facility],non-owned Affiliates and Associated Physician Practices is amultiple site organization consisting of ambulatory clinics and hospital sitesin [place], [place], [place] and [place]. This disclosure is being madepursuant to the Care Everywhere program and may not contain all information available regarding this patient. Last updated 17.[facility] Allergies * Sulfa Drugs(Other) -Medium Criticality Medications * Be aware that medications may not be up to date on this document. Alwaysverify current medications with the patient. * escitalopram (LEXAPRO) 10 MG tablet(Started 03/21/2016) Take 1 (one) tablet by mouth once daily * LORazepam (ATIVAN) 1 MG tablet(Started 01/19/2016) Take 1 (one) tablet by mouth 2 times daily * predniSONE (DELTASONE) 5 MG tablet(Started 03/21/2016) * estradiol (VIVELLE-DOT) 0.025 MG/24HR patch(Started 12/04/2020) * Progesterone 100 MG capsule(Started 12/04/2020) * HUMIRA PEN 40 MG/0.4ML injection(Started 08/26/2021) 0.4 mL every 14 days * Cholecalciferol 50 MCG (2000 UT) Take 2,000 Units by mouth every morning * Multiple Vitamin (MULTIVITAMIN ADULT PO) * meloxicam (Mobic) 7.5 MG tablet(Started 07/19/2023) Take 1 (one) tablet by mouth once daily Active Problems Problem Noted Date Diagnosed Date Elevated liver enzymes 02/01/2020 Anxiety 02/01/2020 Low back pain 02/01/2020 Psoriatic [...] Sex Assigned at Female 05/13/2021 5:37 AM MEDICAID BILLING SPECIALIST Gender Identity Female 05/13/2021 5:37 AM MEDICAID BILLING SPECIALIST Sexual Orientation Not on file Last [...] Mass Index 27.12 08/08/2023 11:49 AM CDT Procedures * CBC W/O DIFFERENTIAL(Performed 08/19/2023) Performed for Fatty (change of) liver, not elsewhere classified * BASIC METABOLIC PANEL (CALCIUM TOTAL)(Performed 08/19/2023) Performed for Fatty (change of) liver, not elsewhere classified * HEPATIC FUNCTION PANEL(Performed 08/19/2023) Performed for Fatty (change of) liver, not elsewhere classified * CO LIVER ELASTOGRAPHY(Performed 08/08/2023) Performed for Elevated liver enzymes * MAMMO BILAT SCREENING W JUDY(Performed 06/03/2023) Performed for Encounter for screening mammogram for malignant neoplasm of breast * US PELVIS W TRANSVAG NON OB(Performed 06/03/2023) Performed for Dysuria * CO LIVER ELASTOGRAPHY(Performed 09/01/2022) Performed for Elevated liver enzymes * MITOCHONDRIAL ANTIBODY SCREEN(Performed 08/17/2022) Performed for Elevated liver enzymes * IMMUNOGLOBULINS IGG/IGM/IGA PANEL(Performed 08/17/2022) Performed for Elevated liver enzymes * CBC W/O DIFFERENTIAL(Performed 08/17/2022) Performed for Elevated liver enzymes * BASIC METABOLIC PANEL (CALCIUM TOTAL)(Performed 08/17/2022) Performed for Elevated liver enzymes * GGT(Performed 08/17/2022) Performed for Elevated liver enzymes * HEPATIC FUNCTION PANEL(Performed 08/17/2022) Performed for Elevated liver enzymes * MAMMO BILAT SCREENING W JUDY(Performed 06/01/2022) Performed for Encounter for screening mammogram for malignant neoplasm of breast * PT-INR(Performed 01/04/2022) Performed for Elevated liver enzymes * CBC W AUTO DIFFERENTIAL(Performed 01/04/2022) Performed for Elevated liver enzymes * COMPREHENSIVE METABOLIC PANEL(Performed 01/04/2022) Performed for Elevated liver enzymes * PT-INR(Performed 10/21/2021) Performed for Elevated liver enzymes * CBC W/O DIFFERENTIAL(Performed 10/21/2021) Performed for Elevated liver enzymes * COMPREHENSIVE METABOLIC PANEL(Performed 10/21/2021) Performed for Elevated liver enzymes * MAMMO BILAT SCREENING W JUDY(Performed 05/19/2021) Performed for Encounter for screening mammogram for malignant neoplasm of breast * LIPID PROFILE(Performed 01/03/2021) Performed for Elevated liver enzymes, NAFLD (nonalcoholic fatty liver disease) * HEMOGLOBIN A1C(Performed 01/03/2021) Performed for Elevated liver enzymes, NAFLD (nonalcoholic fatty liver disease) * CBC W/O DIFFERENTIAL(Performed 01/03/2021) Performed for Elevated liver enzymes, NAFLD (nonalcoholic fatty liver disease) * BASIC METABOLIC PANEL (CALCIUM TOTAL)(Performed 01/03/2021) Performed for Elevated liver enzymes, NAFLD (nonalcoholic fatty liver disease) * GGT(Performed 01/03/2021) Performed for Elevated liver enzymes, NAFLD (nonalcoholic fatty liver disease) * HEPATIC FUNCTION PANEL(Performed 01/03/2021) Performed for Elevated liver enzymes, NAFLD (nonalcoholic fatty liver disease) * IMMUNOGLOBULINS IGG/IGM/IGA PANEL(Performed 01/03/2021) Performed for Elevated liver enzymes, NAFLD (nonalcoholic fatty liver disease) * IRON + TIBC + FERRITIN(Performed 07/07/2020) Performed for Liver lesion, Elevated liver enzymes * COMPREHENSIVE METABOLIC PANEL(Performed 07/07/2020) Performed for Liver lesion, Elevated liver enzymes * CBC W/O DIFFERENTIAL(Performed 07/07/2020) Performed for Liver lesion, Elevated liver enzymes * SMOOTH MUSCLE ANTIBODY(Performed 07/07/2020) Performed for Liver lesion, Elevated liver enzymes * MAMMO BILAT SCREENING(Performed 04/25/2020) Performed for Encounter for screening breast examination * COMPREHENSIVE METABOLIC PANEL(Performed 02/18/2020) Performed for Liver lesion, Elevated liver enzymes * CBC W AUTO DIFFERENTIAL(Performed 02/18/2020) Performed for Liver lesion, Elevated liver enzymes * CT ABDOMEN MULTI PHASE W CONT(Performed 02/06/2020) Performed for Liver lesion, Elevated liver enzymes * CREATININE - POCT INTERFACED(Performed 02/06/2020) * CO LIVER ELASTOGRAPHY(Performed 02/01/2020) Performed for Elevated liver enzymes * TISSUE TRANSGLUTAMINASE AB IGA(Performed 12/14/2019) Performed for Elevated liver enzymes * IGA BLOOD(Performed 12/14/2019) Performed for Elevated liver enzymes * HEPATITIS C ANTIBODY(Performed 12/14/2019) Performed for Elevated liver enzymes * HEPATITIS B SURFACE ANTIBODY QUANT(Performed 12/14/2019) Performed for Elevated liver enzymes * HEPATITIS B SURFACE ANTIGEN W RFLX CONFIRMATION(Performed 12/14/2019) Performed for Elevated liver enzymes * HEPATITIS A ANTIBODY(Performed 12/14/2019) Performed for Elevated liver enzymes * MITOCHONDRIAL ANTIBODY SCREEN(Performed 12/14/2019) Performed for Elevated liver enzymes * CERULOPLASMIN(Performed 12/14/2019) Performed for Elevated liver enzymes * KYLAH BLOOD SCREEN W/REFLEX TITER(Performed 12/14/2019) Performed for Elevated liver enzymes * [id number] BLOOD(Performed 12/14/2019) Performed for Elevated liver enzymes * IRON + TIBC + FERRITIN(Performed 12/14/2019) Performed for Elevated liver enzymes * COMPREHENSIVE METABOLIC PANEL(Performed 12/14/2019) Performed for Elevated liver enzymes * CBC W AUTO DIFFERENTIAL(Performed 12/14/2019) Performed for Elevated liver enzymes * US BREAST BILATERAL COMPLETE(Performed 06/08/2019) Performed for Breast density * MAMMO BILAT SCREENING(Performed 04/20/2019) Performed for Visit for screening mammogram * MAMMO BILAT SCREENING(Performed 04/14/2018) Performed for Encounter for screening mammogram for breast cancer * MAMMO BILAT SCREENING(Performed 04/07/2017) Performed for Encounter for screening mammogram for breast cancer * IMAGING/RADIOLOGY/XRAY RESULTS ORDER(Performed 08/31/2016) * MAMMO RIGHT DIAGNOSTIC(Performed 08/25/2016) Performed for Abnormal finding on breast imaging * MAMMO BILATERAL DIAGNOSTIC(Performed 04/09/2016) * MAMMO BILATERAL DIAGNOSTIC(Performed 04/02/2016) Results * CBC W/O DIFFERENTIAL (08/19/2023 12:05 PM CDT) Only the most recent of5 resultswithin the time period is included. WBC 5.3 3.4 - 10.8 x10E3/uL [facility] INSURANCE BILL RBC 4.38 3.77 - 5.28 x10E6/uL [facility] INSURANCE BILL Hemoglobin 14.1 11.1 - 15.9 g/dL [facility] INSURANCE BILL Hematocrit 41.3 34.0 - 46.6 % [facility] INSURANCE BILL MCV 94 79 - 97 fL [facility] INSURANCE BILL MCH 32.2 26.6 - 33.0 pg [facility] INSURANCE BILL MCHC 34.1 31.5 - 35.7 g/dL [facility] INSURANCE BILL RDW 12.7 11.7 - 15.4 % [facility] INSURANCE BILL Platelet Count 220 150 - 450 x10E3/uL [facility] INSURANCE BILL nRBC NOT AVAILABLE [facility] INSURANCE BILL Comment: FASTING Result cannot be obtained for this observation. Blood BLOOD SPECIMEN / Unknown 08/19/2023 12:05 PM CDT 08/19/2023 Narrative Resulting Agency Comment [facility] [address] ??[facility] [id number] Juan Hubbard MD LAB - HEMATOLOGY ORD ERABLES [facility] INSURANCE BILL [address] [place] [address] * (ABNORMAL) BASIC METABOLIC PANEL (CALCIUM TOTAL) (08/19/2023 12:05 PM CDT) Only the most recent of3 resultswithin the time period is included. Glucose 121(H) 70 - 99 mg/dL [facility] [...] Resulting Agency Comment Lab Testing performed at: [employer] [address] ??[facility] [id number] Juan Hubbard MD LAB - CHEMISTRY DEE MORRIS [facility] INSURANCE BILL [address] [place] [address] * HEPATIC FUNCTION PANEL (08/19/2023 12:05 PM CDT) Only the most recent of3 resultswithin the time period is included. Pathologist [facility] Protein Total 7.0 6.0 - 8.5 g/dL [facility] INSURANCE BILL Albumin 4.3 3.8 - 4.9 g/dL [facility] INSURANCE BILL Bilirubin Total 0.6 0.0 - 1.2 mg/dL [facility] INSURANCE BILL Bilirubin Direct 0.15 0.00 - 0.40 mg/dL [facility] INSURANCE BILL Alkaline Phosphatase 55 44 - 121 IU/L [facility] INSURANCE BILL AST 25 0 - 40 IU/L [facility] INSURANCE BILL ALT 21 0 - 32 IU/L [facility] INSURANCE BILL Comment:FASTING Blood BLOOD SPECIMEN / Unknown 08/19/2023 12:05 PM CDT 08/19/2023 Narrative Resulting Agency Comment Lab Testing performed at: [employer] [address] [facility] [address] ??[facility] [id number] Juan Hubbard MD LAB - CHEMISTRY ORDJanae MORRIS [facility] Organization Address City/State/ZIP Co de Phone Number [facility] INSURANCE BILL [address] [place] [address] * PROC FIBROSCAN (08/08/2023 11:21 AM CDT) Narrative Danny Singletary MD - 08/08/2023 11:21 AM CDT Danny Singletary MD ? 08/10/2023 ??9:30 AM Diagnosis: elevated liver enzymes RN verified patient NPO for prior 3 hours. Procedure explained. Date of Exam: 08/08/2023 Liver Stiffness: (LSM, kPa) median: ??7.3 IQR/Median% (ideally < 30%): ??26% CAP (controlled attenuation parameter): ??265 Technical Difficulty: Small soda and trail mix Ordering Provider: Dr. Hubbard Phone Fax Fibroscan interpretation: I have personally reviewed the Fibroscan report and associated tracings. The calculated Liver Stiffness Measurement (LSM, kPa) indicates that: The probability of advanced liver fibrosis is: low to moderate. The loss of ultrasound signal, (controlled attenuation parameter, CAP [dB/m]), indicates that the probability of hepatic steatosis is: moderate. Danny Lopez MD The following criteria are used to indicate the probability of advanced (stage 3-4) fibrosis: < 7.0 kPa: low 7.0-8.9 kPa: low to moderate 9.0-14.9 kPa: moderate 15-20 kPa: high > 20 kPa: very high Liver stiffness > 20 kPa is also associated with a high probability of complications of portal hypertension including varices and ascites. Liver stiffness > 50 kPa is associated with a high risk of variceal bleeding. These interpretations are based on the following published data: Regis PJ, Maria Luz M, Cleo M, et al. Accuracy of FibroScan controlled attenuation parameter and liver stiffness measurement in assessing steatosis and fibrosis in patients with nonalcoholic fatty liver disease. Gastroenterology 2019;156:7764-8114. Kristine MS, Zo R, Van Barbara ML, et al. Vibration-controlled transient elastography to assess fibrosis and steatosis in patients with nonalcoholic fatty liver disease. Clin Gastroenterol Hepatol 2019;17:156-163. Note that scores have been developed that incorporate the Fibroscan liver stiffness measurement from large cohorts of patients with liver biopsies to further refine the ability of Fibroscan to identify patients ??with MASH and advanced fibrosis. These include the FAST (Fibroscan-AST) score (Anderson, 202) and the Agile3+ and Agile4 scores (Kavya, 202). Anderson TA, Van Barbara ML, Efraín M, Pablo A, et al. Validation of the accuracy of the FAST score for detecting patients with at-risk nonalcoholic steatohepatitis (MEEKS) in a [place] cohort and comparison to other non-invasive algorithms. PLoS ONE (2021) 17: [id number]. Kavya AJ, Cherry J, Franny ZM, et al. Enhanced diagnosis of advanced fibrosis and cirrhosis in individuals with NAFLD using FibroScan-based Agile scores. J Hepatol (2022) 78: 247-259. Fibroscan LSM can also be used with laboratory parameters without formulas to assess prognosis. According to the Baveno-VII criteria (Syed, 202), Fibroscan LSM ?15 kPa plus a platelet count of ?[id number]/L rules out clinically significant portal hypertension (sensitivity and negative predictive value >90%) in patients with compensated advanced chronic liver disease. Syed R, Mau J, Jarrell-Marcel G, Jose T, Bipin C on behalf of the Baveno VII Faculty. Baveno VII--Renewing consensus in portal hypertension. J Hepatol (2021) 76: 959-974 Assessing the likelihood of advanced fibrosis in patients with intermediate liver stiffness measurement (LSM) by Fibroscan (e.g., 8-15 kPa) can be improved by also calculating the FIB-4 score (Oli et al. Hepatology Communications 2019;3:2642-1216) or NAFLD Fibrosis score (Doherty et al. Clinical Gastroenterology and Hepatology 2019;17:1870-7151 using ??routine clinical data. Note: 1. Fibroscan cannot reliably identify earlier stages of fibrosis (ie distinguish F0 from F1 and F2) and thus a histologic stage cannot be predicted from the Fibroscan reading. 2. Liver stiffness can be increased by factors other than fibrosis including passive congestion, infiltrative processes, active alcoholism, recent moderate alcohol consumption in the 2 weeks before the exam, ??biliary obstruction and marked inflammation. The interpretation of the Fibroscan result provided above may not have taken such clinical factors into account. Disease etiology also influences Fibroscan cutoff values for fibrosis stages and the following cutoffs have been proposed (Murray et al, Clin Gastro Hepatol 2015; 13:27-36): Cutoffs for Stage 3 and Stage 4 fibrosis respectively: Hepatitis B: >9 and >11.7 kPa Hepatitis C: >9.5 and >12.5 kPa HCV-HIV: >11 and >14 kPa Cholestatic liver diseases: >10 and >17.9 kPa MASLD/MASH: >10 and >14 kPa CAP estimates of steatosis: normal <200 dB/m mild 200 to 250 dB/m moderate 250-290 dB/m substantial > 290 dB/m (Note that Fibroscan is not a quantitative measure of liver fat.) These criteria are estimates and may change as additional supporting data becomes available. (This additional interpretive data was last updated 07/31/22.) [email or web address] Danny Singletary MD PROCEDURE/ MINOR SURGICAL ORDERABLES * MAMMO BILAT SCREENING W JUDY (06/03/2023 10:43 AM MEDICAID BILLING SPECIALIST) Only the most recent of3 resultswithin the time period is included. Anatomical Region Laterality Modality Breast Bilateral Mammography 06/03/2023 2:46 PM MEDICAID BILLING SPECIALIST Impressions 06/03/2023 2:51 PM MEDICAID BILLING SPECIALIST : Annual screening mammography is recommended. OVERALL FINAL ASSESSMENT: ??BI-RADS Category 1: Negative. > Interpreting Provider: Jerri Morris MD on 06/03/2023 2:51 PM Narrative 06/03/2023 2:51 PM MEDICAID BILLING SPECIALIST EXAMINATION: BILATERAL DIGITAL SCREENING MAMMOGRAM AND [...] change. Yang Perkins MD MAMMO ORDERABLES * US PELVIS WITH TRANSVAG NON OB (06/03/2023 10:29 AM MEDICAID BILLING SPECIALIST) Anatomical Region Laterality Modality Pelvis Ultrasound 06/03/2023 1:24 PM MEDICAID BILLING SPECIALIST Impressions 06/03/2023 1:25 PM MEDICAID BILLING SPECIALIST IMPRESSION: ??Unremarkable ultrasound the uterus and both ovaries > Interpreting Provider: Jennifer Melton MD on 06/03/2023 1:25 PM Narrative 06/03/2023 1:25 PM MEDICAID BILLING SPECIALIST ULTRASOUND OF THE PELVIS WITH TRANSVAGINAL EVALUATION DATE: 06/03/2023 10:29 AM HISTORY: R30.0: Dysuria. COMPARISON: None available. FINDINGS: ?? TRANSABDOMINAL STUDY: ??Multiple transverse, longitudinal and oblique images of the pelvis were obtained with the bladder well distended. ??The uterus measures 8.8 x 3.6 x 4.2 cm. The endometrium measure about 0.3 cm. The ovaries are not visualized. No free fluid seen. TRANSVAGINAL STUDY: After the patient voided, transvaginal ultrasound showed the uterus measure 7.3 x 3.6 x 3.8 cm. The right ovary measure 1.7 x 1.1 x 1.5 cm. The left ovary measure 1.9 x 1.0 x 1.4 cm. No free fluid seen. Procedure Note Jennifer Melton MD - 06/03/2023 ULTRASOUND OF THE PELVIS WITH TRANSVAGINAL EVALUATION DATE: 06/03/2023 10:29 AM HISTORY: R30.0: Dysuria. COMPARISON: None available. FINDINGS: TRANSABDOMINAL STUDY: Multiple transverse, longitudinal and obliqueimages of the pelvis were obtained with the bladder well distended. The uterus measures 8.8 x 3.6 x 4.2 cm. The endometrium measure about 0.3 cm. The ovaries are not visualized. No free fluid seen. TRANSVAGINAL STUDY: After the patient voided, transvaginal ultrasound showed the uterus measure 7.3 x 3.6 x 3.8 cm. The right ovary measure 1.7x 1.1 x 1.5 cm. The left ovary measure 1.9 x 1.0 x 1.4 cm. No free fluid seen. IMPRESSION: Unremarkable ultrasound the uterus and both ovaries > Interpreting Provider: Jennifer Melton MD on 06/03/2023 1:25 PM Yang Perkins MD US ORDERABLES * CO LIVER ELASTOGRAPHY (09/01/2022 10:40 AM CDT) Narrative Melva-Danny Lopez MD - 09/01/2022 10:40 AM CDT Danny Lopez MD ? 09/02/2022 ??5:40 PM Diagnosis: Elevated Liver Enzymes RN verified patient not , no implanted devices and NPO for prior 3 hours. Procedure explained. Date of Exam: 09/01/2022 Liver Stiffness: (LSM, kPa) median: ??4.8 IQR (interquartile range): ?? 1.0 IQR/Median% (ideally < 30%): ??21% CAP (controlled attenuation parameter): ??225 Technical Difficulty: None Ordering Provider: Dr. Hubbard Phone Fax Fibroscan interpretation: I have personally reviewed the Fibroscan report and associated tracings. The calculated Liver Stiffness Measurement (LSM, kPa) indicates that: The probability of advanced liver fibrosis is: low. The loss of ultrasound signal, (controlled attenuation parameter, CAP [dB/m]), indicates that the probability of hepatic steatosis is: low. Danny Lopez MD The following criteria are used to indicate the probability of advanced (stage 3-4) fibrosis: < 7.0 kPa: low 7.0-8.9 kPa: low to moderate 9.0-14.9 kPa: moderate 15-20 kPa: high > 20 kPa: very high Liver stiffness > 20 kPa is also associated with a high probability of complications of portal hypertension including varices and ascites. Liver stiffness > 50 kPa is associated with a high risk of variceal bleeding. These interpretations are based on the following published data: Regis CABRAL, Maria Luz M, Cleo M, et al. Accuracy of FibroScan controlled attenuation parameter and liver stiffness measurement in assessing steatosis and fibrosis in patients with nonalcoholic fatty liver disease. Gastroenterology 2019;156:5082-2694. Kristine KINGSLEY, Zo R, Van Barbara ML, et al. Vibration-controlled transient elastography to assess fibrosis and steatosis in patients with nonalcoholic fatty liver disease. Clin Gastroenterol Hepatol 2019;17:156-163. Note that scores have been developed that incorporate the Fibroscan liver stiffness measurement from large cohorts of patients with liver biopsies to further refine the ability of Fibroscan to identify patients ??with MEKES and advanced fibrosis. These include the FAST (Fibroscan-AST) score (Anderson, 202) and the Agile3+ and Agile4 scores (Kavya, 202). Anderson TA, Van Barbara ML, Efraín M, Pablo A, et al. Validation of the accuracy of the FAST score for detecting patients with at-risk nonalcoholic steatohepatitis (MEEKS) in a [place] cohort and comparison to other non-invasive algorithms. PLoS ONE (2021) 17: [id number]. Kavya AJ, Cherry J, Franny ZM, et al. Enhanced diagnosis of advanced fibrosis and cirrhosis in individuals with NAFLD using FibroScan-based Agile scores. J Hepatol (2022) 78: 247-259. Fibroscan LSM can also be used with laboratory parameters without formulas to assess prognosis. According to the Baveno-VII criteria (de Lillian, 202), Fibroscan LSM ?15 kPa plus a platelet count of ?[id number]/L rules out clinically significant portal hypertension (sensitivity and negative predictive value >90%) in patients with compensated advanced chronic liver disease. Syed R, Mau J, Jarrell-Marcel G, Reaugustine T, Bipin C on behalf of the Baveno VII Faculty. Baveno VII--Renewing consensus in portal hypertension. J Hepatol (2021) 76: 959-974 Assessing the likelihood of advanced fibrosis in patients with indeterminate liver stiffness measurement (LSM) by Fibroscan (e.g., 8-15 kPa) can be improved by also calculating the FIB-4 score (Oli et al. Hepatology Communications 2019;3:2214-5101) or NAFLD Fibrosis score (Doherty et al. Clinical Gastroenterology and Hepatology 2019;17:7833-7425 using ??routine clinical data. Note: 1. Fibroscan cannot reliably identify earlier stages of fibrosis (ie distinguish F0 from F1 and F2) and thus a histologic stage cannot be predicted from the Fibroscan reading. 2. Liver stiffness can be increased by factors other than fibrosis including passive congestion, infiltrative processes, active alcoholism, recent moderate alcohol consumption in the 2 weeks before the exam, ??biliary obstruction and marked inflammation. The interpretation of the Fibroscan result provided above may not have taken such clinical factors into account. Disease etiology also influences Fibroscan cutoff values for fibrosis stages and the following cutoffs have been proposed (Murray et al, Clin Gastro Hepatol 2015; 13:27-36): Cutoffs for Stage 3 and Stage 4 fibrosis respectively: Hepatitis B: >9 and >11.7 kPa Hepatitis C: >9.5 and >12.5 kPa HCV-HIV: >11 and >14 kPa Cholestatic liver diseases: >10 and >17.9 kPa NAFLD/MEEKS: >10 and >14 kPa CAP estimates of steatosis: normal <200 dB/m mild 200 to 250 dB/m moderate 250-290 dB/m substantial > 290 dB/m (Note that Fibroscan is not a quantitative measure of liver fat.) These criteria are estimates and may change as additional supporting data becomes available. (This additional interpretive data was last updated 07/31/22.) [email or web address] Juan Hubbard MD PROCEDURE/MINOR SURG ICAL ORDERABLES * (ABNORMAL) MITOCHONDRIAL ANTIBODY SCREEN (08/17/2022 12:00 PM CDT) Only the most recent of2 resultswithin the time period is included. Mitochondrial M2 Antibody 72.0(H) 0.0 - 20.0 Units [facility] INSURANCE BILL Comment: ? Negative ?0.0 - 20.0 ? Equivocal ??20.1 - 24.9 ? Positive ? >24.9 ? . ? Mitochondrial (M2) Antibodies are found in 90-96% of ? patients with primary biliary cirrhosis. Blood BLOOD SPECIMEN / Unknown 08/17/2022 12:00 PM CDT 08/17/2022 Narrative Resulting Agency Comment Lab Testing performed at: [facility] [address] ??[facility] [id number] Juan Hubbard MD LAB - CHEMISTRY DEE MORRIS Performing Organization Address [facility]UST de Phone Number [facility] INSURANCE BILL [address] [place] [address] * GGT (08/17/2022 12:00 PM CDT) Only the most recent of2 resultswithin the time period is included. Pathologist [facility] GGT 16 0 - 60 IU/L [facility] INSURANCE BILL Blood BLOOD SPECIMEN / Unknown 08/17/2022 12:00 PM CDT 08/17/2022 Narrative Resulting Agency Comment Lab Testing performed at: [facility] [address] ??[facility] [id number] Juan Hubbard MD LAB - CHEMISTRY DEE MORRIS Performing Organization Address [facility] de Phone Number [facility] INSURANCE BILL [address] [place] [address] * (ABNORMAL) IMMUNOGLOBULINS IGG/IGM/IGA PANEL (08/17/2022 12:00 PM CDT) Only the most recent of2 resultswithin the time period is included. Pathologist [facility] [place] IgG Quantitative 976 586 - 1,602 mg/dL [facility] INSURANCE BILL IgA Quantitative 324 87 - 352 mg/dL [facility] INSURANCE BILL IgM Quantitative 324(H) 26 - 217 mg/dL [facility] INSURANCE BILL Blood BLOOD SPECIMEN / Unknown 08/17/2022 12:00 PM CDT 08/17/2022 Narrative Resulting Agency Comment Lab Testing performed at: [facility] [address] ??[facility] [phone] Juan Hubbard MD LAB - CHEMISTRY DEE MORRIS [facility] INSURANCE BILL [address] [place] [address] * PT-INR (01/04/2022 10:19 AM CDT) Only the most recent of2 resultswithin the time period is included. INR 1.0 0.9 - 1.2 [facility] INSURANCE BILL Comment: ? Reference interval is for non-anticoagulated patients. ?. ? Suggested INR therapeutic range for Vitamin K ? antagonist therapy: ?Standard Dose (moderate intensity ? therapeutic range): ? 2.0 - 3.0 ?Higher intensity therapeutic range ? 2.5 - 3.5 PT 9.9 9.1 - 12.0 sec [facility] INSURANCE BILL Comment:FASTING Blood BLOOD SPECIMEN / Unknown 01/04/2022 10:19 AM CDT 01/04/2022 Narrative Resulting Agency Comment Lab Testing performed at: [facility] [address] ??[facility] [phone] Juan Hubbard MD LAB - COAGULATION OR DERABLES [facility] INSURANCE BILL [address] [place] [address] * CBC WITH DIFFERENTIAL (01/04/2022 10:19 AM CDT) Only the most recent of3 resultswithin the time period is included. WBC 4.0 3.4 - 10.8 x10E3/uL [facility] INSURANCE BILL RBC 4.52 3.77 - 5.28 x10E6/uL [facility] INSURANCE BILL Hemoglobin 14.1 11.1 - 15.9 g/dL [facility] INSURANCE BILL Hematocrit 43.8 34.0 - 46.6 % [facility] INSURANCE BILL MCV 97 79 - 97 fL [facility] INSURANCE BILL MCH 31.2 26.6 - 33.0 pg [facility] INSURANCE BILL MCHC 32.2 31.5 - 35.7 g/dL [facility] INSURANCE BILL RDW 12.4 11.7 - 15.4 % [facility] INSURANCE BILL Platelet Count 237 150 - 450 x10E3/uL [facility] INSURANCE BILL Granulocytes % 36 Not Estab. % [facility] INSURANCE BILL Lymphocytes % 50 Not Estab. % [facility] INSURANCE BILL Monocytes % 11 Not Estab. % [facility] INSURANCE BILL Eosinophils % 2 Not Estab. % [facility] INSURANCE BILL Basophils % 1 Not Estab. % [facility] INSURANCE BILL Immature Cells NOT AVAILABLE [facility] INSURANCE BILL Comment:Result cannot be obt ained for this observation. Granulocytes Absolute 1.4 1.4 - 7.0 x10E3/uL [facility] INSURANCE BILL Lymphocytes Absolute 2.0 0.7 - 3.1 x10E3/uL [facility] INSURANCE BILL Monocytes Absolute 0.4 0.1 - 0.9 x10E3/uL [facility] INSURANCE BILL Eosinophils Absolute 0.1 0.0 - 0.4 x10E3/uL [facility] INSURANCE BILL Basophils Absolute 0.1 0.0 - 0.2 x10E3/uL [facility] INSURANCE BILL Immature Granulocytes 0 Not Estab. % [facility] INSURANCE BILL Immature Granulocytes Absolute 0.0 0.0 - 0.1 x10E3/uL [facility] INSURANCE BILL nRBC NOT AVAILABLE [facility] INSURANCE BILL Comment:Result cannot be obt ained for this observation. Comment Hematology NOT AVAILABLE [facility] INSURANCE BILL Comment: FASTING Result cannot be obtained for this observation. Blood BLOOD SPECIMEN / Unknown 01/04/2022 10:19 AM CDT 01/04/2022 Narrative Resulting Agency Comment Lab Testing performed at: [facility] [address] [facility] ??[facility] [phone] Juan Hubbard MD LAB - HEMATOLOGY ORD ERABLES [facility] INSURANCE BILL [address] [place] [address] * COMPREHENSIVE METABOLIC PANEL (01/04/2022 10:19 AM CDT) Only the most recent of5 resultswithin the time period is included. Glucose 96 70 - 99 mg/dL [facility] INSURANCE BILL Comment:Please note refere nce interval change BUN 9 6 - 24 mg/dL [facility] INSURANCE BILL Creatinine 0.86 0.57 - 1.00 mg/dL [facility] INSURANCE BILL eGFR by CKD-EPI 80 >59 mL/min/1.7 3 [facility] INSURANCE BILL BUN/Creatinine Ratio 10 9 - 23 [facility] INSURANCE BILL Sodium 142 134 - 144 mmol/L [facility] INSURANCE BILL Potassium 4.1 3.5 - 5.2 mmol/L [facility] INSURANCE BILL Chloride 102 96 - 106 mmol/L [facility] INSURANCE BILL CO2 25 20 - 29 mmol/L [facility] INSURANCE BILL Calcium 8.9 8.7 - 10.2 mg/dL [facility] INSURANCE BILL Protein Total 6.5 6.0 - 8.5 g/dL [facility] INSURANCE BILL Albumin 4.1 3.8 - 4.9 g/dL [facility] INSURANCE BILL Globulin Total 2.4 1.5 - 4.5 g/dL [facility] INSURANCE BILL Albumin/Globulin Ratio 1.7 1.2 - 2.2 [facility] INSURANCE BILL Bilirubin Total 0.3 0.0 - 1.2 mg/dL [facility] INSURANCE BILL Alkaline Phosphatase 56 44 - 121 IU/L [facility] INSURANCE BILL AST 28 0 - 40 IU/L [facility] INSURANCE BILL ALT 22 0 - 32 IU/L [facility] INSURANCE BILL Comment:FASTING Blood BLOOD SPECIMEN / Unknown 01/04/2022 10:19 AM CDT 01/04/2022 Narrative Resulting Agency Comment Lab Testing performed at: [facility] ??[facility] [phone] Juan Hubbard MD LAB - CHEMISTRY DEE MORRIS Performing Organization Address [facility] Co de Phone Number [facility] INSURANCE BILL [address] [place] [address] * HEMOGLOBIN A1C (01/03/2021 10:59 AM CDT) Hemoglobin A1c 5.4 4.8 - 5.6 % [facility] INSURANCE BILL Comment: ? . ? Prediabetes: 5.7 - 6.4 ? Diabetes: >6.4 ? Glycemic control for adults with diabetes: <7.0 FASTING Blood BLOOD SPECIMEN / Unknown 01/03/2021 10:59 AM CDT 01/03/2021 Narrative Resulting Agency Comment Lab Testing performed at: [facility] [address] ??[facility] [phone] Juan Hubbard MD LAB - CHEMISTRY DEE MORRIS Performing Organization Address [facility]/[place] de Phone Number [facility] INSURANCE BILL [address] [place] [address] * (ABNORMAL) LIPID PROFILE (01/03/2021 10:59 AM [...] Resulting Agency Comment Lab Testing performed at: [facility] ??[facility] [phone] Juan Hubbard MD LAB - CHEMISTRY DEE MORRIS Performing Organization Address [facility] Co de Phone Number [facility] INSURANCE BILL [address] [place] [address] * IRON + TIBC + FERRITIN (07/07/2020 3:43 PM CDT) Only the most recent of2 resultswithin the time period is included. TIBC 263 250 - 450 ug/dL [facility] INSURANCE BILL UIBC 194 131 - 425 ug/dL [facility] INSURANCE BILL Iron 69 27 - 159 ug/dL [facility] INSURANCE BILL Iron Saturation 26 15 - 55 % [facility] INSURANCE BILL Ferritin 135 15 - 150 ng/mL [facility] INSURANCE BILL Blood BLOOD SPECIMEN / Unknown 07/07/2020 3:43 PM CDT 07/07/2020 Narrative Resulting Agency Comment Lab Testing performed at: [employer] [address] [facility] ??[facility] [phone] Zenia Barros MD LAB - CHEMISTRY DEE MORRIS Performing Organization Address [facility] Co de Phone Number [facility] INSURANCE BILL [address] [place] [address] * SMOOTH MUSCLE ANTIBODY (07/07/2020 3:43 PM CDT) Actin (Smooth Muscle) Antibody 4 0 - 19 Units [facility] INSURANCE BILL Comment: ?Negative ? 0 - 19 ?Weak positive ? 20 - 30 ?Moderate to strong positive ? >30 ?. ?Actin Antibodies are found in 52-85% of patients with ?autoimmune hepatitis or chronic active hepatitis and ?in 22% of patients with primary biliary cirrhosis. Blood BLOOD SPECIMEN / Unknown 07/07/2020 3:43 PM CDT 07/07/2020 Narrative [facility] INSURANCE BILL - 07/08/2020 3:08 PM CDT A courtesy copy of this report has been sent to the patient, [facility] Blaine MINAYA Resulting Agency Comment Lab Testing performed at: [address] ??[facility] [phone] Zenia Barros MD LAB - SEROLOGY ORDER TABATHA [facility] INSURANCE BILL [address] [place] [address] * MAMMO SCREENING DIGITAL IMAGE BILAT G0202 (04/25/2020 1:20 PM MEDICAID BILLING SPECIALIST) Only the most recent of4 resultswithin the time period is included. Anatomical Region Laterality Modality Breast Bilateral Mammography 04/25/2020 2:13 PM MEDICAID BILLING SPECIALIST Impressions 04/25/2020 2:17 PM MEDICAID BILLING SPECIALIST No mammographic evidence of malignancy in either breast. ASSESSMENT: BIRADS Category 1: Negative mammogram. RECOMMENDATION: Bilateral screening mammogram in one year. Thank you for allowing us to participate in the care of your patient. [facility] utilizes Team[employer] as a reminder system to notify patients of their next recommended mammogram. *Reading Radiologist: Rae Salas on 04/25/2020 at 2:17 PM Narrative 04/25/2020 2:17 PM MEDICAID BILLING SPECIALIST EXAMINATION: Digital screening mammogram. Low-dose full-field digital breast tomosynthesis examination was performed with synthetic 2D images and 3D acquisitions. Computer assisted detection was utilized. DATE: 04/25/2020 12:51 PM PRIOR: ??04/20/2019 and prior mammograms dating back to 04/01/2016. BREAST PARENCHYMAL DENSITY: The breasts are heterogeneously dense, which may obscure small masses. RISK ASSESSMENT CALCULATION: Not offered due to COVID contact precautions. FINDINGS: No suspicious masses, areas of architectural distortion or microcalcifications are evident on synthetic 2D mammogram or tomosynthesis images. There has been no significant interval change since the prior examination. Chavez Perkins MD MAMMO ORDERABLES * CT ABDOMEN MULTI PHASE W CONT (02/06/2020 7:48 AM MEDICAID BILLING SPECIALIST) Anatomical Region Laterality Modality Abdomen Computed Tomogra phy 02/06/2020 7:51 AM MEDICAID BILLING SPECIALIST Impressions 02/06/2020 9:40 AM MEDICAID BILLING SPECIALIST Impression: 1.No arterially-enhancing hepatic lesion with washout concerning for hepatocellular carcinoma. 2.Two hepatic hemangiomas, as described above. 3.Hepatic steatosis. Report drafted by Cherise Cantrell (resident) I, Dr. JANET GREENE have personally reviewed and interpreted this examination/study. This report was electronically signed by JANET GREENE ??on 02/06/2020 9:40 AM . Narrative 02/06/2020 9:40 AM MEDICAID BILLING SPECIALIST Procedure Information DATE: 02/06/2020 7:48 AM EXAMINATION: Computed tomography (CT) of the abdomen with contrast TECHNIQUE: CT of the abdomen was performed following the uneventful administration of 150 mL of Isovue 370 intravenous contrast according to a three-phase liver protocol. Three dimensional postprocessing was performed by the technologist and sent to the workstation for review. Clinical Information HISTORY: K76.9: Liver lesion R74.8: Elevated liver enzymes COMPARISON: None. Findings Lower Chest: Normal. Hepatobiliary system Liver morphology: Normal. Diffuse hepatic steatosis is present. Varices: None Spleen: Normal. Ascites: None. Focal liver observations Observations compatible with hepatocellular carcinoma by LI-RADS criteria: None. Other: There is a 3.8 x 3.7 cm hypodense lesion in hepatic segments 7/8 with surrounding arterial enhancement near the same density as the aorta, with gradual fill-in/enhancement of the lesion on delayed images, consistent with a cavernous hemangioma. There is an additional similar-appearing lesion with the same characteristics in hepatic segment 6 measuring up to 3.7 x 2.5 cm, also consistent with a cavernous hemangioma. Hepatic vasculature Portal and hepatic veins: Patent. Arterial anatomy: The hepatic arterial anatomy is conventional. Gallbladder and bile ducts Gallbladder: The gallbladder is normal without evidence of wall thickening, pericholecystic fluid, or gallstones. Bile ducts: The intrahepatic and extrahepatic bile ducts are nondilated. Retroperitoneum Pancreas: Normal. Adrenals: Normal. Kidneys: Normal. Lymph nodes: No lymphadenopathy in the abdomen or pelvis. Gastrointestinal: Imaged bowel and mesentery are normal. Bones: There are multilevel degenerative changes of the imaged spine with multilevel Schmorl's nodes. Procedure Note Janet Greene MD - 02/06/2020 Procedure Information DATE: 02/06/2020 7:48 AM EXAMINATION: Computed tomography (CT) of the abdomen with contrast TECHNIQUE: CT of the abdomen was performed following the uneventful administrationof 150 mL of Isovue 370 intravenous contrast according to a three-phaseliver protocol. Three dimensional postprocessing was performed by the technologist and sent to the workstation for review. Clinical Information HISTORY: K76.9: Liver lesion R74.8: Elevated liver enzymes COMPARISON: None. Findings Lower Chest: Normal. Hepatobiliary system Liver morphology: Normal. Diffuse hepatic steatosis is present. Varices: None Spleen: Normal. Ascites: None. Focal liver observations Observations compatible with hepatocellular carcinoma by LI-RADScriteria: None. Other: There is a 3.8 x 3.7 cm hypodense lesion in hepatic segments 7/8 with surrounding arterial enhancement near the same density as theaorta, with gradual fill-in/enhancement of the lesion on delayed images, consistent with a cavernous hemangioma. There is an additional similar-appearing lesion with the same characteristics in hepaticsegment 6 measuring up to 3.7 x 2.5 cm, also consistent with a cavernous hemangioma. Hepatic vasculature Portal and hepatic veins: Patent. Arterial anatomy: The hepatic arterial anatomy is conventional. Gallbladder and bile ducts Gallbladder: The gallbladder is normal without evidence of wall thickening, pericholecystic fluid, or gallstones. Bile ducts: The intrahepatic and extrahepatic bile ducts are nondilated. Retroperitoneum Pancreas: Normal. Adrenals: Normal. Kidneys: Normal. Lymph nodes: No lymphadenopathy in the abdomen or pelvis. Gastrointestinal: Imaged bowel and mesentery are normal. Bones: There are multilevel degenerative changes of the imaged spine with multilevel Schmorl's nodes. Impression: 1.No arterially-enhancing hepatic lesion with washout concerning for hepatocellular carcinoma. 2.Two hepatic hemangiomas, as described above. 3.Hepatic steatosis. Report drafted by Cherise Cantrell (resident) I, Dr. JANET GREENE have personally reviewed and interpreted this examination/study. This report was electronically signed by JANET GREENE on 02/06/20209:40 AM . Latonia Marley PA-C CT ORDERABLES * CREATININE - POCT INTERFACED (02/06/2020 7:29 AM MEDICAID BILLING SPECIALIST) Creatinine POCT 0.60 0.30 - 1.30 mg/dL 02/06/2020 7:43 AM MEDICAID BILLING SPECIALIST [facility] eGFR >60 >60 mL/min/1.7 3 m2 02/06/2020 7:43 AM MEDICAID BILLING SPECIALIST [facility] Blood BLOOD SPECIMEN / Unknown 02/06/2020 7:29 AM MEDICAID BILLING SPECIALIST 02/06/2020 7:43 AM MEDICAID BILLING SPECIALIST Latonia Marley PA-C LAB - POINT OF CA RE ORDERABLES [facility] [address] [address], [facility] [phone] * PROC FIBROSCAN (02/01/2020 2:41 PM MEDICAID BILLING SPECIALIST) Narrative Danny Lopez MD - 02/01/2020 2:41 PM MEDICAID BILLING SPECIALIST Danny Lopez MD ? 02/02/2020 11:30 AM Diagnosis: Elevated liver enzymes RN verified patient not , no implanted devices and NPO for prior 3 hours. Vital signs taken, procedure explained and consent signed. Date of Exam: 02/01/2020 Liver Stiffness: (LSM, kPa) median: ??4.5 IQR (interquartile range): ?? 0.3 IQR/Median% (ideally < 30%): ??7 CAP (controlled attenuation parameter): ??275 Technical Difficulty: None Ordering Provider: Latonia Marley PA-C Phone Fax Fibroscan interpretation: I have personally reviewed the Fibroscan report and associated tracings. The calculated Liver Stiffness Measurement (LSM, kPa) indicates that: The probability of advanced liver fibrosis is: low. The loss of ultrasound signal, (controlled attenuation parameter, CAP [dB/m]), indicates that the probability of hepatic steatosis is: moderate. Danny Lopez MD The following criteria are used to indicate the probability of advanced (stage 3-4) fibrosis: < 7.0 kPa: low 7.0-8.9 kPa: low to moderate 9.0-14.9 kPa: moderate 15-20 kPa: high > 20 kPa: very high Liver stiffness > 20 kPa is also associated with a high probability of complications of portal hypertension including varices and ascites. Liver stiffness > 50 kPa is associated with a high risk of variceal bleeding. These interpretations are based on the following published data: Regis PJ, Maria Luz M, Cleo M, et al. Accuracy of FibroScan controlled attenuation parameter and liver stiffness measurement in assessing steatosis and fibrosis in patients with nonalcoholic fatty liver disease. Gastroenterology 2019;156:4255-1162. Kristine MS, Zo R, Van Kristelta ML, et al. Vibration-controlled transient elastography to assess fibrosis and steatosis in patients with nonalcoholic fatty liver disease. Clin Gastroenterol Hepatol 2019;17:156-163. Note: 1. Fibroscan cannot reliably identify earlier stages of fibrosis (ie distinguish F0 from F1 and F2) and thus a histologic stage cannot be predicted from the Fibroscan reading. 2. Assessing the likelihood of advanced fibrosis in patients with indeterminate liver stiffness measurement (LSM) by Fibroscan (e.g., 8-15 kPa) can be improved by also calculating the FIB4 score (Oli et al. Hepatology Communications 2019;3:3857-7951) or NAFLD Fibrosis score (Doherty et al. Clinical Gastroenterology and Hepatology 2019;17:3607-3670. from routine clinical data. 3. Liver stiffness can be increased by factors other than fibrosis including passive congestion, infiltrative processes, active alcoholism, biliary obstruction and marked inflammation. The interpretation of the Fibroscan result provided above may not have taken such clinical factors into account. Disease etiology also influences Fibroscan cutoff values for fibrosis stages and the following cutoffs have been proposed (Murray et al, Clin Gastro Hepatol 2015; 13:27-36): Cutoffs for Stage 3 and Stage 4 fibrosis respectively: Hepatitis B: >9 and >11.7 kPa Hepatitis C: >9.5 and >12.5 kPa HCV-HIV: >11 and >14 kPa Cholestatic liver diseases: >10 and >17.9 kPa NAFLD/MEEKS: >10 and >14 kPa CAP estimates of steatosis: normal <200 dB/m mild 200 to 250 dB/m moderate 250-290 dB/m substantial > 290 dB/m (Note that Fibroscan is not a quantitative measure of liver fat.) These criteria are estimates and may change as additional supporting data becomes available. [email or web address] Latonia Marley PA-C PROCEDURE/MINOR S URGICAL ORDERABLES * (ABNORMAL) HEPATITIS B SURFACE ANTIBODY QUANT (12/14/2019 3:03 PM CDT) Hepatitis B Virus Surface Antibody Quantitative <3.1(L) Immunity>9 .9 mIU/mL [facility] INSURANCE BILL Comment: ? Status of Immunity ? Anti- HBs Level ? Inconsistent with Immunity ? 0.0 - 9.9 ? Consistent with Immunity ?>9.9 Blood BLOOD SPECIMEN / Unknown 12/14/2019 3:03 PM CDT 12/14/2019 Narrative Resulting Agency Comment Lab [facility] performed [facility]: [facility] [address] ??[facility] [phone] Latonia Marley PA-C LAB - SEROLOGY OR DERABLES [facility] INSURANCE BILL [address] [place] [address] * TISSUE TRANSGLUTAMINASE AB IGA (12/14/2019 3:03 PM CDT) TTG Antibody IgA <2 0 - 3 U/mL [facility] INSURANCE BILL Comment: ? Negative ?0 - ??3 ? Weak Positive ?? 4 - 10 ? Positive ? >10 ?. ?Tissue Transglutaminase (tTG) has been identified ?as the endomysial antigen. ??Studies have demonstr- ?ated that endomysial IgA antibodies have over 99% ?specificity for gluten sensitive enteropathy. Blood BLOOD SPECIMEN / Unknown 12/14/2019 3:03 PM CDT 12/14/2019 Narrative Resulting Agency Comment Lab Testing performed at: [facility] [address] ??[facility] [phone] Latonia Marley PA-C LAB - SEROLOGY OR DERABLES [facility] INSURANCE BILL [address] [place] [address] * KYLAH BLOOD SCREEN W/REFLEX TITER (12/14/2019 3:03 PM CDT) KYLAH Negative [facility] INSURANCE BILL Comment: ?Negative ?? <1:80 ?Borderline ??1:80 ?Positive ?? >1:80 Blood BLOOD SPECIMEN / Unknown 12/14/2019 3:03 PM CDT 12/14/2019 Narrative [facility] INSURANCE BILL - 12/17/2019 11:08 AM CDT A courtesy copy of this report has been sent to the patient Resulting Agency Comment Lab Testing performed at: [facility] [place] [address] ??[facility] [phone] Latonia Marley PA-C LAB - CHEMISTRY O RDERABLES [facility] INSURANCE BILL [address] [place] [address] * CERULOPLASMIN (12/14/2019 3:03 PM CDT) Ceruloplasmin 20.2 19.0 - 39.0 mg/dL [facility] INSURANCE BILL Blood BLOOD SPECIMEN / Unknown 12/14/2019 3:03 PM CDT 12/14/2019 Narrative Resulting Agency Comment Lab Testing performed at: [facility] [address] ??[facility] [phone] Latonia Marley PA-C LAB - CHEMISTRY O RDERABLES Performing Organization Address City/[facility]/ZIP Co de Phone Number [facility] INSURANCE BILL [address] [place] [address] * [id number] BLOOD (12/14/2019 3:03 PM CDT) Ikadr-0-Klrijen psin 130 101 - 187 mg/dL [facility] INSURANCE BILL Blood BLOOD SPECIMEN / Unknown 12/14/2019 3:03 PM CDT 12/14/2019 Narrative Resulting Agency Comment Lab Testing performed at: [facility] [address] ??[facility] [phone] Latonia Marley PA-C LAB - CHEMISTRY O RDERABLES [facility] INSURANCE BILL [address] [place] [address] * HEPATITIS B SURFACE ANTIGEN W RFLX CONFIRMATION (12/14/2019 3:03 PM CDT) Hepatitis B Virus Surface Antigen Negative Negative [facility] INSURANCE BILL Blood BLOOD SPECIMEN / Unknown 12/14/2019 3:03 PM CDT 12/14/2019 Narrative Resulting Agency Comment Lab Testing performed at: [facility] [address] ??[place] [phone] Latonia Marley PA-C LAB - CHEMISTRY O RDERABLES Performing Organization Address [facility] Co de Phone Number [facility] INSURANCE BILL [address] [place] [address] * IGA BLOOD (12/14/2019 3:03 PM CDT) [facility] IgA Quantitative 310 87 - 352 mg/dL [facility] INSURANCE BILL Blood BLOOD SPECIMEN / Unknown 12/14/2019 3:03 PM CDT 12/14/2019 Narrative Resulting Agency Comment Lab Testing performed at: [facility] [address] ??[place] [phone] Latonia Marley PA-C LAB - CHEMISTRY O RDERABLES Performing Organization Address [facility] de Phone Number [facility] INSURANCE BILL [address] [place] [address] * HEPATITIS C ANTIBODY (12/14/2019 3:03 PM CDT) [facility] Hepatitis C Antibody <0.1 0.0 - 0.9 s/co ratio [facility] INSURANCE BILL Comment: ? Negative: ? < 0.8 ?Indeterminate: 0.8 - 0.9 ? Positive: ? > 0.9 ? . ?The CDC recommends that a positive HCV antibody result ?be followed up with a HCV Nucleic Acid Amplification ?test (423841). Blood BLOOD SPECIMEN / Unknown 12/14/2019 3:03 PM CDT 12/14/2019 Narrative Resulting Agency Comment Lab Testing performed at: [address] ??[facility] [phone] Latonia Marley PA-C LAB - CHEMISTRY O RDERAISAI Performing Organization Address [facility] Co de Phone Number [facility] INSURANCE BILL [address] [place] [address] * HEPATITIS A ANTIBODY (12/14/2019 3:03 PM CDT) Hepatitis A Virus Antibody Total Negative Negative [facility] INSURANCE BILL Blood BLOOD SPECIMEN / Unknown 12/14/2019 3:03 PM CDT 12/14/2019 Narrative Resulting Agency Comment Lab Testing performed at: [facility] [address] [place] [address] Road ??[facility] [phone] Latonia Marley PA-C LAB - CHEMISTRY O RDERAISAI Performing Organization Address [facility] de Phone Number [facility] INSURANCE BILL [address] [place] [address] * US BREAST BILATERAL COMPLETE (06/08/2019 10:08 AM CDT) Anatomical Region Laterality Modality Breast Bilateral Ultrasound 06/08/2019 10:1 2 AM CDT Narrative 06/08/2019 10:14 AM CDT Bilateral breast ultrasound Indication for examination: Intermediate risk factors for breast cancer, mammographically dense breast tissue. Ultrasound examination of the right and left breast is performed with transverse and longitudinal images, as a screening study. Comparison is made with prior screening mammogram. No cystic or solid parenchymal mass is identified within the right or left breast on the basis of this examination. There are no abnormally enlarged or suspicious appearing axillary lymph nodes on either side. Results were discussed with the patient. It should be noted that additional diagnostic measures, including biopsy, should not be delayed if there are clinically suspicious findings. ASSESSMENT: Negative, BI-RADS 1 Recommendation: Bilateral screening mammogram on schedule *Reading Radiologist: Jose Knight MD on 06/08/2019 at 10:14 AM Chavez Perkins MD US ORDERABLES * IMAGING/RADIOLOGY/XRAY RESULTS ORDER (08/31/2016 9:46 PM CDT) Anatomical Region Laterality Modality Mammography Narrative 08/31/2016 9:46 PM CDT Ordered by an unspecified provider. Scanned Document IMAGING * MAMMO DIAG DIRECT DIGITAL IMAGE UNIL RIGHT (08/25/2016 11:00 AM CDT) Anatomical Region Laterality Modality Right Mammography 08/26/2016 10:3 0 AM CDT Narrative 08/26/2016 10:54 AM CDT DIGITAL UNILATERAL DIAGNOSTIC MAMMOGRAMS WITH CAD AND 3-D TOMOSYNTHESIS DATE: 08/25/2016 10:06 AM PREVIOUS EXAM DATE: 04/01/2016 [facility]. INDICATION: Abnormal mammogram. TECHNIQUE: Unilateral right spot magnification CC, MLO, and ML tomosynthesis. Images were interpreted with the aid of CAD. 3-D tomosynthesis images were performed. TECHNOLOGIST: Rae Monsalve, RT(R)(M). TISSUE DENSITY: Heterogeneously dense. This may lower the sensitivity of mammography. ??Please correlate with clinical examination. FINDINGS: The tiny calcification seen in the right breast primarily at 12:00 have not increased and are difficult to visualize. Biopsy would be very difficult. Targeting would likely be unreliable. ASSESSMENT: BI-RADS 2: ?? Benign finding. RECOMMENDATIONS: Follow-up bilateral mammography March 2017. The above findings should be correlated with physical examination. A relatively nonspecific study should not preclude additional evaluation if suspicious findings are present clinically. An [employer]. [facility] utilizes [employer] as a reminder system to notify patients of their next recommended mammograms. Edited by Mady Sparrow on 08/26/2016 10:44 AM El Luis MD MAMMO ORDERABLES * MAMMO BILATERAL DIAGNOSTIC (04/09/2016) Only the most recent of2 resultswithin the time period is included. Anatomical Region Laterality Modality Breast Mammography El Luis MD MAMMO ORDERABLES Care Teams Pharmacist Critical Care Relationship Specialty Start Date End Date Je Valladares MD [address] [place] [phone] PCP - General Internal Medicine 04/23/16
--- OUTSIDE RECORDS SUMMARY | 2024-04-20 02:38 | XMS_ITS | Clinical Summary ---
Author Organization [facility] Address [address] [place] [address]. [place], [place] [id number] [place] [id number] Care Team Providers Care Radiographic Technologist Name Role Phone Unavailable Primary Care Provider Unavailabl e Social History Tobacco Use Types Packs/Day Years Used Date Smoking Tobacco: Never Assessed Comments Unknown Sex and Gender Information Value Date Recorded Sex Assigned at Not on file Legal Sex Female 7:35 PM CDT Gender Identity Not on file Sexual Orientation Not on file Plan of Treatment Health Maintenance Due Date Last Done Comments Cervical Cancer Screening Pa p Smear (Age 30 to 64) Every 3 Years 1966 Colorectal Cancer Screening Colonoscopy (10 Years) 1966 Annual Physical 1969 Hepatitis C 1984 DTaP, Tdap and Td Vaccines ( 1 - Tdap) 1985 Hepatitis B Vaccines (1 of 3 - 19+ 3-dose series) 1985 Cervical Cancer Screening Pa p with HPV Testing (Age 30 to 64) Every 5 Years 1996 Cervical Cancer Screening with HPV 1996 Mammogram Screening 2006 Zoster Vaccines (1 of 2) 2016 COVID-19 Vaccine (2023-2 5 season) 2023 Influenza Adult (#1) 2023 Meningococcal Vaccine Aged Out No lo usha eligible based on patient's age to complete this topic Pneumococcal Vaccine: Pediat rics (0 to 5 Years) and At-Risk Patients (6 to 64 Years) Aged Out No longer eligible b ased on patient's age to complete this topic RSV Immunizations Under 20 Months Aged Out No longer eligible based on patient's age to complete this topic
--- OUTSIDE RECORDS SUMMARY | 2024-04-20 02:38 | XMS_ITS | CONTINUITY OF CARE DOCUMENT ---
Author Name colby chanapierre Address Unknown Organization [facility] Address [id number] [place] [address] [address] [place] [address] Phone [phone] Care Team Providers Care Delivery Aide Name Role Phone Ashleigh Monk MD Unavailable Je Valladares MD Unavailable Je Valladares MD Unavailable [phone] PROBLEMS Condition Status Date Provider Notes PULMONARY VALVE INSUFFICIENCY active Isidoro Monk MD Palpitations active Ashleigh Monk MD Claudication active Ashleigh Monk MD Arthritis active Ashleigh Monk MD Chest pressure active Ashleigh Monk MD Shortness of breath active Ashleigh cruz MD -02/07 NUC NEG completed - Ashleigh cruz MD ENCOUNTERS Date Type Provider Location Encounter Diag nosis - In-person encounter Office Visit Ashleigh Monk MD [place] [facility] - In-person encounter Office Visit Ashleigh Monk MD [facility] - In-person encounter Office Visit Ashleigh Monk MD [place] [facility] - In-person encounter Office Visit Ashleigh Monk MD [place] [facility] - In-person encounter Office Visit Ashleigh Monk MD [place] [facility] Chest pressureShortness of breath - In-person encounter Office Visit Ashleigh Monk MD [place] [facility] CAD-02/07 NUC NEGClaudicationArthritis - In-person encounter Office Visit Ashleigh Monk MD [place] [facility] Palpitations - In-person encounter Office Visit Ashleigh Monk MD [place] [facility] PULMONARY VALVE INSUFFICIENCY VITAL SIGNS Date Observation Value Provider Body Mass Index (Ratio) 26.98 kg/m2 Eric Monk MD blood pressure, cuff size regular danica Tovar blood pressure, diastolic 73 mm[Hg] danica Tovar blood pressure, systolic 114 mm[Hg] She david La oxygen saturation, oximetry 96 % Karen La weight E&M 157.2 [lb_av] Karen La respiratory rate E&M 18 /min Karen La pulse rate 76 /min Karen La height E&M 64 [in_i] Karen La weight E&M 156 [lb_av] Courtney Gonzalez Body Mass Index (Ratio) 26.77 kg/m2 Eric Monk MD blood pressure, diastolic 80 mm[Hg] Li nkLogic blood pressure, systolic 122 mm[Hg] Phylicia kLogic blood pressure, cuff size regular Ke rri Juveuenenfeldneema blood pressure, diastolic 80 mm[Hg] Ke rri Gruenenfeldneema blood pressure, systolic 122 mm[Hg] Josué ri Lani oxygen saturation, oximetry 97 % Lucita Garibay respiratory rate E&M 12 /min Lucita diazeneracheleldneema pulse rate 81 /min Lucita Azevedo lder weight E&M 156 [lb_av] Lucita Azevedo lder height E&M 64 [in_i] Lucita Azevedo lder Body Mass Index (Ratio) 27.46 kg/m2 Jones Orellana blood pressure, cuff size regular Cy alistair Batres blood pressure, diastolic 80 mm[Hg] Cy alistair Batres blood pressure, systolic 130 mm[Hg] Audrey pooja Batres oxygen saturation, oximetry 96 % Mahnaz Batres respiratory rate E&M 16 /min Mahnazpooja Batres pulse rate 78 /min Mahnaz montalvo weight E&M 160 [lb_av] Mahnaz Low l height E&M 64 [in_i] Mahnaz Low l Body Mass Index (Ratio) 27.98 kg/m2 Eric Monk MD blood pressure, resting Yes Just in [facility] blood pressure, cuff size regular Izabella reyna Lan blood pressure, diastolic 80 mm[Hg] Izabella reyna Lan blood pressure, systolic 110 mm[Hg] Madison maria inestisha Monten[place] oxygen saturation, oximetry 99 % Komal Lan respiratory rate E&M 16 /min Komalashley [place] pulse rate 69 /min Komal [place] weight E&M 163 [lb_av] Komal Lan height E&M 64 [in_i] Komal Lan Body Mass Index (Ratio) 27.80 kg/m2 Eric Monk MD blood pressure, diastolic 88 mm[Hg] Jonathan Jennings RN blood pressure, systolic 140 mm[Hg] Joel Jennings RN blood pressure, cuff size regular Ke rrmecca Garibay blood pressure, diastolic 86 mm[Hg] Ke rri Lani blood pressure, systolic 124 mm[Hg] Josué Ramirezduyrachelsteven oxygen saturation, oximetry 97 % Lucita Anayazrachelsteven respiratory rate E&M 16 /min Lucita Richmond joemayomacie pulse rate 83 /min Lucita Azevedo kikier weight E&M 162 [lb_av] Lucita Azevedo [facility] [place][note 2] height E&M 64 [in_i] Lucita Azevedo [facility] [place][note 2] blood pressure, diastolic 76 mm[Hg] Ga lianet Wiledr blood pressure, systolic 117 mm[Hg] Cristy lambert Wilder pulse rate 80 /min Birdie iWlder oxygen saturation, oximetry 96 % Birdie Wilder respiratory rate E&M 14 /min Birdie Wilder Body Mass Index (Ratio) 27.46 kg/m2 Gretchen montaño Wilder weight E&M 160 [lb_av] Birdie Wilder height E&M 64 [in_i] Birdie Wilder blood pressure, diastolic 73 mm[Hg] Sa rubi Monk MD blood pressure, systolic 120 mm[Hg] Dari Monk MD pulse rate 82 /min Ashleigh kennedy MD oxygen saturation, oximetry 97 % Ashleigh Monk MD respiratory rate E&M 17 /min Ashleigh Monk MD weight E&M 163 [lb_av] Ashleigh kennedy MD blood pressure, diastolic 77 mm[Hg] Jonathan Jennings RN blood pressure, systolic 122 mm[Hg] Joel Jenninsg RN pulse rate 75 /min Joel Jennings RN oxygen saturation, oximetry 98 % Joel Jennings RN respiratory rate E&M 15 /min Joel rangel RN weight E&M 155.5 [lb_av] Joel Jennings RN ALLERGIES Allergy Name Onset Date Reaction Criticality Status SULFA Low Criticality active HISTORY OF MEDICATION USE Medication Status Instructions Dates Provider Indications Com ments lorazepam 0.5 mg tablet active tablet by mouth Joel Jennings RN Lexapro 5 mg tablet active tablet by mouth Joel Jennings RN Emily (28) 90-20 mcg (28) tablet active tablet by mouth Joel Jennings RN Enbrel SureClick 50 mg/mL (1 mL) pen injector active subcutaneously once a week Joel Jennings RN prednisone 10 mg tablet active 5 mg by mouth once a day Joel Jennings RN SOCIAL HISTORY Date Observation Value Provider social history reviewed E&M revi ewed - no changes required 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 Lacy Ambrocio NP drug use no Taylortyesha Cristóbal CRANE alcohol use yes Taylortyesha Cristóbal CRANE smoking status Former smoker Lacy Lowerysharad ge BODY TRIMMER UPHOLSTERER social history reviewed E&M revi ewed - no changes required Ashleigh Mokn MD social history E&M Marital Statu s: Smoking History: Austin pena has never smoked. Jason Orellana social history reviewed E&M revi ewed - no changes required Jason Orellana alcohol use, average drinks per day social Mahnaz Batres alcohol use yes Mahnaz montalvo caffeine use, averag e drinks per day yes Mahnaz Batres drug use no Mahnaz montalvo passive cigarette sm jacqui exposure no Mahnaz Batres smoking status Never smoker Mahnaz Eladio arreguin number of grandchildren Ashleigh Kyle social history reviewed E&M revi ewed - no changes required Jamil Kyle alcohol use, average drinks per day social oKmal [place]en[place] alcohol use yes Komal [place] caffeine use, averag e drinks per day yes Komal [place] drug use no Komal [place] passive cigarette sm jacqui exposure no Komal [place] smoking status Never smoker Komal [place] smoking status Never smoker Joel Jennings RN smoking status Never smoker Georgette Roca social history E&M Marital Statu s: Smoking History: Austin pena has never smoked. Georgette Roca social history reviewed E&M revi ewed - no changes required Georgette Roca alcohol use, average drinks per day social Lucita Garibay alcohol use yes Lucita Jolly lder caffeine use, averag e drinks per day yes Lucita Lani drug use no Lucita Jolly lder passive cigarette sm jacqui exposure no Lucitaluma Garibay social history E&M Marital Statu s: Smoking History: Austin pena has never smoked. Ashleigh Monk MD social history reviewed E&M revi ewed - no changes required Ashleigh Monk MD alcohol use, average drinks per day social Birdie Wilder alcohol use yes Birdie Wilder caffeine use, averag e drinks per day yes Birdie Wilder drug use no Birdie Wilder passive cigarette sm jacqui exposure no Birdie Wilder smoking status Never smoker Birdie jackson alcohol use, average drinks per day social Ashleigh Monk MD caffeine use, averag e drinks per day yes Ashleigh Monk MD drug use no Ashleigh kennedy MD passive cigarette sm jacqui exposure no Ashleigh Monk MD smoking status Never smoker Ashleigh vasquez MD social history reviewed E&M revi ewed - no changes required Ashleigh Monk MD drug use no Joel Jennings RN passive cigarette sm jacqui exposure no Joel Jennings RN social history E&M Marital Status: Marrie d Joel Jennings RN caffeine use, averag e drinks per day yes Joel Jennings RN alcohol use, average drinks per day social Joel Jennings RN smoking status never smoker Joel Jennings RN social history reviewed E&M reviewed Joel Jennings RN FUNCTIONAL STATUS Date Observation Value Provider periodic limb movement index absent (0) Joel Jennings RN MENTAL STATUS Date Observation Value Provider assessment of judgme nt and insight E&M Alert and oriented to time, place and person. Mood and affect are normal. Joel Jennings RN FAMILY HISTORY Family Member Condition Father Family History of Di abetes: INSURANCE PROVIDERS Payer name Policy type / Coverage type Apolinar red democrat ID [facility] [id number] Other [id number] ADVANCE DIRECTIVES Name Date DISCUSSED - NO DECISION MADE TREATMENT PLAN Date Name Performer [id number],S, B P today: 114/73 P rior BP: 122/80 (08/17/2022) Lacy Lowerymahin BODY TRIMMER UPHOLSTERER [id number],C,S he reports occasional palpitations and cardiac awareness. 2 day monitor 08/31-09/02/2022 showed NSR. The average heart rate was 71 bpm with a minimum heart rate of 56 bpm and a maximum heart rate of 126 bpm. Lacy Lowerymahin CRANE [id number],B,S he reports improvement in symptoms. C ONCLUSIONS: Echo 08/31/2022 1 . Normal left ventricular systolic function. Normal left ventricular size. Normal left ventricular wall thickness. There is E to A w ave reversal consistent with impaired LV relaxation. E/E': 0.1 Left ventricular ejection fraction is measured at 60 %. 2 . Normal pericardium with no pericardial or pleural effusion. 3 . Normal aortic root size. Sinus of Valsalva is 2.70 cm Ascending Aorta is 2.70 cm. 4 . No significant valvular abnormalities. Lacy Lowerymahin CRANE [id number],C,S he still has chest pressure off and on. She had a negative stress test on 08/31/2022. Lacy Ambrocio ROYCE [id number],C, Ashleigh zacarias MD [id number],C, O rders: F VC - 02656 (67331) F RC - 91787 (92447) D LCO - 69383 (66275) Ashleigh Monk MD [id number],C, O rders: E KG (CPT-38659) 9 9205 HIGH 60-74 min (CPT-95257) H olter Monitor 48 hr (CPT-62178) S chedule Followup (*) Ashleigh Monk MD [id number],W, O rders: E KG (CPT-80892) C omplete Echo (CPT-19174) S tress Routine (CPT-64380) 9 9205 HIGH 60-74 min (CPT-57127) S chedule Followup (*) Ashleigh Monk MD Electrophysiology: B P today: 114/73 P rior BP: 122/80 (08/17/2022) Ashleigh Monk MD Electrophysiology:Che barros reports occasional palpitations and cardiac awareness. 2 day monitor 08/31-09/02/2022 showed NSR. The average heart rate was 71 bpm with a minimum heart rate of 56 bpm and a maximum heart rate of 126 bpm. Ashleigh Monk MD Electrophysiology:Che barros reports improvement in symptoms. C ONCLUSIONS: Echo 08/31/2022 1 . Normal left ventricular systolic function. Normal left ventricular size. Normal left ventricular wall thickness. There is E to A w ave reversal consistent with impaired LV relaxation. E/E': 0.1 Left ventricular ejection fraction is measured at 60 %. 2 . Normal pericardium with no pericardial or pleural effusion. 3 . Normal aortic root size. Sinus of Valsalva is 2.70 cm Ascending Aorta is 2.70 cm. 4 . No significant valvular abnormalities. Ashleigh Monk MD Electrophysiology:Sh e still has chest pressure off and on. She had a negative stress test on 08/31/2022. Ashleigh Monk MD Cardiology Ashleigh cruz MD Cardiology: O rders: F VC - 98657 (73378) F RC - 07853 (93670) D LCO - 64504 (83500) Ashleigh Monk MD Cardiology: O rders: E KG (CPT-37565) 9 9205 HIGH 60-74 min (CPT-73681) H olter Monitor 48 hr (CPT-29065) S chedule Followup (*) Ashleigh Monk MD Cardiology: O rders: E KG (CPT-56724) C omplete Echo (CPT-33375) S tress Routine (CPT-21739) 9 9205 HIGH 60-74 min (CPT-92956) S chedule Followup (*) Ashleigh Monk MD Electrophysiology follow up Jones Orellana Electrophysiology follow up Jones Orellana Electrophysiology follow up Jones Orellana Electrophysiology fo llow up : B P today: 130/80 P rior BP: 110/80 (10/08/2016) Jason Orellana Electrophysiology follow up :Ech o today was normal. Jason Orellana EP: B P today: 110/80 P rior BP: 140/88 (10/04/2016) Jamil Kyle EP:Echo and stress t est both normal. LVEF 65%, no pleural or pericardial effusions. Jamil Kyle EP:Echo and stress t est both normal. LVEF 65%. Patient still complains of chest pressure at night but taking her Lorazapam provides relief. Jamil Kyle Follow up Ashleigh cruz MD Follow up : B P today: 124/86 P rior BP: 117/76 (03/07/2015) Ashleigh Monk MD Follow up :Will have an echo and routine stress test done. Georgette Roca Cardiology faxed : O rders: A rterial Duplex Bi-Lower EX (CPT-69141) Ashleigh Monk MD Cardiology faxed 03/12/15 Isidoro Monk MD Cardiology faxed :BP today: 117/76 P rior BP: 120/73 (03/01/2014) Ashleigh Monk MD yearly fu: P rior BP: 122/77 (02/09/2013) Orders: S chedule Followup (*) Ashleigh Monk MD yearly fu:ECHO on : Conclusions: Normal left ventricular systolic function. Normal left ventricular size. Normal left ventricular wall thickness. Normal left ventricular diastolic function. Normal E/E` 5.0. Left ventricular ejection fraction is estimated at 65 %. M ild mitral valve prolapse involving the posterior mitral valve leaflet. No mitral valve regurgitation is seen. A ortic valve leaflets appear structurally normal. Velocities, as well as gradients across the aortic valve are normal. No evidence of aortic insufficiency. T he tricuspid valve is normal in appearance and function. No evidence of tricuspid regurgitation. IVC is normal in size with normal respiratory response. Unable to adequately assess the RVSP. N ormal pericardium with no pericardial or pleural effusion. N ormal aortic root size. 0 01-Mar-2014 Orders: S chedule Followup (*) Ashleigh Monk MD yearly fu: H er updated medication list for this problem includes: Lorazepam Tabs (Lorazepam tabs) Orders: E KG (CPT-32281) H olter Monitor 24 Hr (CPT-16579) S chedule Followup (*) Ashleigh Monk MD Date Name CT, Coronary Calcium Score Complete Echo DLCO - 04841 FRC - 62430 FVC - 23897 Holter Monitor 48 hr Stress Routine Complete Echo Complete Echo STR - Routine Complete Echo Holter Monitor 24 Hr Arterial Duplex Bi-L ower EX Holter Monitor 24 Hr Complete Echo HISTORY OF PROCEDURES Procedure Date Procedure Name Provider Procedure Notes S xavierus CT- Coronary CA score Ashleigh smith MD completed Schedule Followup Ashleigh pace MD 1 year completed EKG Ashleigh cruz MD completed Schedule Followup Ashleigh pace MD fu in 2 weeks completed EKG Ashleigh cruz MD completed EKG Ashleigh cruz MD completed Schedule Followup Ashleigh pace MD in 1 year completed EKG Ashleigh cruz MD completed SNOMED-CT: 123939874663039 Current Medications Documented Ashleigh Monk MD completed Stress EKG Elpidio Colon MD completed Schedule Followup Ashleigh pace MD 1 week completed EKG Ashleigh cruz MD completed SNOMED-CT: 503570516357971 Current Medications Documented Ashleigh Monk MD completed Schedule Followup Ashleigh pace MD 1 year completed EKG Ashleigh cruz MD completed SNOMED-CT: 522079101146853 Current Medications Documented Ashleigh Monk MD completed Schedule Followup Ashleigh pace MD in 1 year completed EKG Ashleigh cruz MD completed Schedule Followup Ashleigh pace MD completed EKG Ashleigh cruz MD completed
--- OUTSIDE RECORDS SUMMARY | 2024-04-20 02:38 | XMS_ITS | Clinical Summary ---
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 12/22/2020 Current [...] Free, Intramuscular 01/13/2020 Influenza, Quadrivalent, Split, Intramuscular Surgical History Surgery Date Site/Laterality Comments SECTION HIP ARTHROPLASTY 05/26/2021 Right JOINT REPLACEMENT Medical History Medical History Date Comments Obesity Anxiety Arthritis Osteoarthritis Psoriasis Autoimmune disease (CMS/HCC) (HCC) 1973 Family History Medical History Relation Name Comments Diabetes Father Vidhya Roy mother Heart disease Father Vidhya Roy mother Hypertension Father Vidhya Roy mother Kidney disease Father Vidhya Roy mother Arthritis Mother Deangelo Roy father Diabetes Mother Deangelo Roy father Heart attack Mother Deangelo Roy father Heart disease Mother Deangelo Roy father Hypertension Mother Deangelo Roy father Kidney disease Mother Deangelo Roy father d Relation Name Status Comments Father Vidhya Roy mother Mother Deangelo Roy father Alive Social History Tobacco Use Types Packs/Day Years Used Date Smoking Tobacco: Former Cigarettes 0.2 10 1 1997 Smokeless Tobacco: Never Tobacco Cessation:Counseling Given: [...] on file Legal Sex Female 4:16 AM CLOCK AND WATCH HANDS MOUNTER Gender Identity Female 10/08/2020 7:57 AM CDT Sexual Orientation Straight 10/08/2020 7: 57 AM CDT 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 Not on file Not on file Obstetrics History Para Term AB IAB SAB Ectopic Multiple Livin g Live Births 2 2 Date Outcome GA Total Labor Labor/2nd/3rd Weight Sex Type Anes PTL Marcelle A1 A5 Name Clin Para Para Last Filed Vital Signs Vital Sign Reading Time Taken Comments Blood Pressure 117/78 12/21/2023 12:47 PM CDT Pulse 83 12/21/2023 12:47 PM CDT Temperature 37.1 ??C (98.7 ??F) 12/21/2023 12:47 PM C DT Respiratory Rate 18 05/26/2021 2:10 PM CLOCK AND WATCH HANDS MOUNTER Oxygen Saturation 97% 01/14/2022 2:26 PM CDT Inhaled Oxygen Concentration - - Weight 72.6 kg (160 lb 1.3 oz) 12/21/2023 12:47 PM CDT Height 160 cm (5' 3 ) 12/21/2023 12:47 PM CDT Body Mass Index 28.36 12/21/2023 12:47 PM CDT Plan of Treatment Health Maintenance Due Date Last Done Comments Colon Cancer Screening-Colonoscopy 1965 Hepatitis C Screening 1965 DTaP/Tdap/Td Vaccine (1 - Tdap) 1977 Hepatitis B Screening 1984 Zoster Vaccine (1 of 2) 2016 Depression Screening 03/19/2022 03/19/2021 Covid-19 Vaccine ( season) 2023 05/27/2020, 04/24/2020 Influenza Vaccine (#1) 2023 , 01/13/2020, 02/09/2016 Breast Cancer Screening-Mammogram 06/02/2024 06/03/2023, 06/03/2023, 06/01/2022, Additional history exists Cervical Cancer Screening 06/07/2024 06/08/2023 Regular Well Visit/Exam 18-64 06/07/2024 06/08/2023 Pneumococcal vaccine <65 Aged Out No longer eligible based on patient's age to complete this topic Medical Devices Implanted Type Area Postal Delivery Officer Device Identifier Shelf Expiration Date Model / Serial / Lot [employer] [id number] Procotyl Prime 50mm Shell Acetabular Sterile - Sna - [id number] Implanted:Qty: 1 on 05/26/2021 by Daniel Valencia MD at [facility] Other - see comments Right: Hip [employer] [id number] 12/16/2028 [id number] / NA / [id number] Description:Implant pause pe rformed [employer] [id number] Procotyl Prime 36mm Liner Acetabular Sterile Latex Free - Sna - [id number] Implanted:Qty: 1 on 05/26/2021 by Daniel Valencia MD at [facility] Other - see comments Right: Hip [employer] [id number] 10/29/2028 [id number] / NA / [id number] Description:Implant pause pe rformed [employer] [id number] Hip 3 High Offset Stem Femoral Sterile Latex Free - Sna - [id number] Implanted:Qty: 1 on 05/26/2021 by Daniel Valencia MD at [facility] Other - see comments Right: Hip [employer] [id number] 08/15/2028 [id number] / NA / [id number] Description:Implant pause pe rformed [employer] [id number] Procotyl 36mm 03/10 Large Head Femoral Biolox Delta Sterile - Sna - [id number] Implanted:Qty: 1 on 05/26/2021 by Daniel Valencia MD at [facility] Other - see comments Right: Hip [employer] [id number] 10/05/2027 [id number] / NA / [id number] Description:Implant pause pe rformed [employer] [id number] Dynasty Lineage 6.5mm 40mm Acetabular Screw Bone Biofoam - Sna - [id number] Implanted:Qty: 1 on 05/26/2021 by Daniel Valencia MD at [facility] Screw Right: Hip [employer] [id number] 10/16/2028 [id number] / NA / [id number] Description:Implant pause pe rformed [employer] [id number] Dynasty Lineage 6.5mm 25mm Acetabular Screw Bone Biofoam - Sna - [id number] Implanted:Qty: 1 on 05/26/2021 by Daniel Valencia MD at [facility] Screw Right: Hip [employer] [id number] 08/02/2026 [id number] / NA / [id number] Description:Implant pause pe rformed Procedures Procedure Name [...] CDT 06/11/2023 6:58 AM CDT Narrative PATHOLOGY [facility] - 06/14/2023 2:21 PM CDT EPIC results best viewed via link to PDF [address] ??[address] Tele: ?? Zofia Mustafa MD - Telecommunications Facility Examiner CYTOLOGY REPORT Note to Patients: This report [...] the details. Patient Name: ??ALONDRA PARKEROdalis Address: ??[address] [place] [address] Gender: ??F : ??1965 (Age: 57) Service: ?? Location: ?? Hospital #: ??[id number] Patient Type: ??[facility] SPECIMEN Taken: ??06/08/2023 Reported: ??06/14/2023 Physician(s): ? Dr. Yang Perkins M.D. FINAL DIAGNOSIS: SOURCE OF SPECIMEN ?- ThinPrep Pap w/ reflex HPV: STATEMENT OF ADEQUACY Source: ??Cervical/Endocervical ?- Satisfactory for interpretation ?- Endocervical/Transformation zone component absent or insufficient ?- Case screened using computer assisted imaging technology and manually re-screened by a metal sponge making machine operator. ? GENERAL CATEGORIZATION: ?- Negative for intraepithelial lesion or malignancy ? cad/06/14/2023 14:21Deanne Irving M.S., SHANE (ASCP) Report Reviewed and Electronically Signed By ??Deanne Irving M.S., SHANE (ASCP)Clerical Data Follow A; [id number] REPORT IMAGES [...] LAB CYTOLOGY ORDERABLES Lili montalvo Result PATHOLOGY [facility] Laboratory Receiving [address] [place] [address] from Last 3 Months or Most Recently Relevant to Health Maintenance Insurance [facility] [id number] [facility] [id number] Advance Directives For more information, please contact: [phone] * Full Code (Latest Code Status on File) Date Activated Date Inactivated Comments 05/26/2021 11:34 AM 05/26/2021 11:35 PM Care Teams Talent Solutions Manager Relationship Specialty Start Date End Date Je Valladares MD PCP - General 02/08/20
== END 2024-04-18 14:53 | disposition home or self-care (01) ==
LOC: ANHIMG 14:55
PROVIDERS: PCP Internal Medicine; Visit Provider Internal Medicine
DX: Z13.820 Encounter for screening for osteoporosis (principal); M85.88 Other specified disorders of bone density and structure, other site; M85.852 Other specified disorders of bone density and structure, left thigh
CPT/HCPCS: 77080

== ENCOUNTER 2024-05-10 15:56 | Emergency (ER) | payer OTHER, SELFPAY ==
--- NOTE | 2024-05-10 16:07 | ED.WOUNDLAC ---
HPI - Wound/Laceration General Chief Complaint: Wound/Laceration Stated Complaint: cut left thumb with knife Time Seen by Provider: 05/10/24 16:08 Source: patient, RN notes reviewed and old records reviewed Mode of arrival: ambulatory Limitations: no limitations History of Present Illness HPI narrative: Patient presents with complaints of laceration to left thumb. She reports that she cut the right thumb with a knife at about 10 30 this morning while trying to separate some sausage patties. She is unsure when her last tetanus shot was. She denies other injury and trauma. No active bleeding on arrival. No other concerns or complaints Related Data Home Medications ?Medication ?Instructions ?Recorded ?Confirmed ?Last Taken ?Type adalimumab-adaz 40 mg/0.4 mL 40 mg subcut WEEKLY 05/10/24 05/10/24 Unknown History subcutaneous pen injector (Hyrimoz(CF) Pen) escitalopram oxalate 10 mg tablet 10 mg PO DAILY 05/10/24 05/10/24 Unknown History lorazepam 1 mg tablet 1 mg PO TID 05/10/24 05/10/24 Unknown History prednisone 5 mg tablet 5 mg PO DAILY 05/10/24 05/10/24 Unknown History Allergies Allergy/AdvReac Type Severity Reaction Status Date / Time Sulfa (Sulfonamide Allergy Intermediate Palpitation Verified 05/10/24 15:59 Antibiotics) s Review of Systems Review of Systems: All systems reviewed & are unremarkable except as noted in HPI and below Constitutional: Constitutional: Reports no additional constitutional complaints ENT: Reports system reviewed and no additional complaints, except as documented Cardiovascular: Cardiovascular: Reports no additional cardiovascular complaints Respiratory: Respiratory: Reports no additional respiratory complaints Gastrointestinal: Gastrointestinal: Reports no additional gastrointestinal complaints Integumentary/Breasts: Skin/Breast: Reports as per HPI and Reports wounds PMFSH Comments At the time of my signature, I reviewed and agree with the nursing past medical, surgical, social, and family history. There is no relevant family history pertinent to the patient complaint. Exam Const: General: cooperative, no acute distress, alert and awake Orientation/consciousness: oriented to person, oriented to place and oriented to time HENMT: Head: normal to inspection Resp: Effort & Inspection: normal respiratory effort and able to speak in complete sentences Auscultation: clear to auscultation bilaterally, no crackles, no rales, no rhonchi and no wheezes Cardio: Palpation: normal PMI Rate: regular rate Rhythm: regular rhythm Heart sounds: S1 normal heart sound present and S2 normal heart sound present Neuro: General: oriented to person, oriented to place and oriented to time Cranial nerves: Yes CN's II-XII intact bilaterally Extrem: Hand/finger images:  1. 1.5 cm shallow laceration to right thumb, no bleeding Psych: Appearance: grossly normal Thought process: Normal thought process present Insight: Good insight present (Psych) Judgement: Good judgement present (Psych) Course Course Level of Care: Express Care Visit Vital Signs Vital signs: Reviewed Procedures Laceration Laceration 1: Date: 05/10/24 Time: 16:41 Site: hand Side (If applicable): left Size (cm): 1.5 Depth: simple, single layer Pre-repair: irrigated ====== Skin Level ====== Skin layer closed with: dermabond and steri strips ====== Subcutaneous Layer ====== ====== Muscle Layer ====== ====== Tendon Layer ====== MDM - Wound/Laceration MDM Narrative Medical decision making narrative: Extremely superficial laceration to the left thumb. Repaired with Steri-Strips and Dermabond. Splint placed for protection. Wound care instructions gone over with patient. Tetanus updated. Given dirty nature of cut, patient immunocompromised status, and cut being on dominant hand will cover with 7 days of Augmentin Discharge instructions reviewed with patient, as well as provided in writing per nursing staff. The instructions also include specific and strict return/GO TO THE ER as well as f/u information. All questions have been answered, and the patient deny any further questions with discharge and discharge plan. Some parts of this dictation were generated by voice recognition software and may contain typographical and/or grammatical inaccuracies. Differential Diagnosis Differential diagnosis: Likely laceration Medical Records Attestation: I reviewed the patient's medical records. Discharge Plan Discharge Clinical Impression: Laceration Patient Disposition: Home, Self-Care Condition: Stable Instructions: Antibiotic Form, Skin Adhesive Care (ED), Steristrips (ED) Patient Language: Panamanian Prescriptions: New amoxicillin-pot clavulanate 875-125 mg tablet 1 tablet PO Q12H Qty: 14 0RF No Action adalimumab-adaz [Hyrimoz(CF) Pen] 40 mg/0.4 mL pen injector 40 mg SUBCUT WEEKLY escitalopram oxalate 10 mg tablet 10 mg PO DAILY lorazepam 1 mg tablet 1 mg PO TID prednisone 5 mg tablet 5 mg PO DAILY Follow-up/Referrals: Blaine,Je Doran MD [Primary Care Provider] - 1 Week Time of Disposition: 17:04
[2024-05-10 16:25] VITALS: BP 115/56; PULSE 84; RESP 15; TEMP 36.4; O2SAT 98
[2024-05-10] MEDS: TETANUS,DIPHTHERIA,AC PERTUSSIS ADULT (0.5 ML) BOOSTRIX IM (16:44)
== END 2024-05-10 17:13 | disposition home or self-care (01) ==
PROVIDERS: Emergency Provider Nurse Practitioner Family; PCP Internal Medicine
DX: S61.012A Laceration without foreign body of left thumb without damage to nail, initial encounter (principal); W26.0XXA Contact with knife, initial encounter; Z23 Encounter for immunization; M19.90 Unspecified osteoarthritis, unspecified site; M06.9 Rheumatoid arthritis, unspecified
CPT/HCPCS: 12001; 90471; 90715; 99213; G0463

== ENCOUNTER 2024-11-18 21:12 | Emergency (ER) | payer OTHER, SELFPAY ==
--- OUTSIDE RECORDS SUMMARY | 2021-10-29 10:50 | XMS_ITS | Continuity of Care Document ---
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 Name Role Phone Won Wu Unavailable Unavailable Procedures Procedure Date Therapeutic Activities Neuromuscular Re-Ed Therapeutic Exercise Therapeutic Activities Neuromuscular Re-Ed Therapeutic Exercise Therapeutic Activities Therapeutic Exercise Neuromuscular Re-Ed Neuromuscular Re-Ed Therapeutic Activities Therapeutic Exercise Therapeutic Activities Neuromuscular Re-Ed Therapeutic Exercise Therapeutic Activities Therapeutic Exercise Neuromuscular Re-Ed Neuromuscular Re-Ed Therapeutic Activities Therapeutic Exercise Therapeutic Activities Neuromuscular Re-Ed Hot or Cold Pack Therapeutic Activities Neuromuscular Re-Ed Therapeutic Exercise Hot or Cold Pack PT Evaluation Moderate Complexity Therapeutic Activities Neuromuscular Re-Ed Therapeutic Exercise Advance Directives Directive Yes / No Effective Date File Name No Information Encounters Encounter Description Practice Location Reason(s) For Visit Diagnoses Date Provider Providers Copied on Encounter [facility], [address], [id number], tel:[phone] [place] No Information Oct-0 2 Muehl Won. [address] [place] [address], [facility] [address], [place], [facility], . tel: [phone] [address], [id number], tel:[phone] [place] No Information Aug- 2 Farrukh Sergey. . Referring Provider: Daniel Valencia, [address] [place] [address] Medical Office Building [address], [facility]. tel:[phone], [id number], tel:[phone] [place] No Information 2 Muehl Won. [address] [place] [address], [facility] [address] [place], [facility], . tel: [phone] Referring Provider: Daniel Valencia, [address] [place] [address] Medical Office Building [address], [facility]. tel:[phone], [id number], tel:[phone] [place] No Information 2 Muehl Won. [address] [place] [address], [address], [place], [facility], . tel: [phone] Referring Provider: Daniel Valencia, [address] [place] [address] Medical Office Building [address], [facility]. tel:[phone], [id number], tel:[phone] [place] No Information Aug- 2 Muehl Won. [address] [place] [address], [address], [place], [facility], . tel:[phone] Referring Provider: Daniel Valencia, [address] [place] [address] Medical [address], [facility]. tel:[phone] [place] [address], [id number], tel:[phone] [place] No Information Aug- 4-202 2 Corky Shaw. . Referring Provider: Daniel Valencia, [address] [place] [address], [facility]. tel:[phone] [place] [address], [id number], [place] tel:[phone] [place] No Information 0-202 2 Marisabel Gomez. . Referring Provider: Daniel Valencia, [address] [place] [address], [facility]. tel:[phone] [place] [address], [id number], tel:[phone] [place] No Information Aug-0 2-202 2 Muehl Won. [address] [place] [address], [address], [facility], . tel: [phone] Referring Provider: Daniel Valencia [address] [place] [address] Medical [address], [facility]. tel:[phone] [place] [address], [id number], [place] tel:[phone] [place] No Information July-2 7-[address] [facility], [address], [place], [facility], . tel:[phone] Referring Provider: Daniel Valencia [address] [place] [address] [address] [place] [address], [facility]. tel:[phone] [place] [address], [id number], tel:[phone] [place] No Information July-2 3-[address] [facility], [address], [place], [facility], [place]. tel:[phone] Referring Provider: Daniel Valencia [address] [facility] Medical Office Building [address], [address]. tel:[phone] [employer] [place], [address] [place] [address], [place], [place], [id number], tel:[phone] [place] No Information [address] [facility], [address], [place], [address], [place]. tel:[phone] Referring Provider: Daniel Valencia, [address] [facility] Medical Office Building [address], [address]. tel:[phone] Family History Family Member Type Diagnosis Age At Onset No Information Payers Payer name Insurance type Covered green party ID Authorgarrison renner(s) [facility] [id number] Social History Type Description Quantity Date Captured Comments Sex Female Smoking Status No Information Chief Complaint And Reason For Visit No Information Reason For Referral Reason For Referral No Information History Of Present Illness Encounter Date Complaint History Of Prese nt Illness No Information Functional Status Date Functional Assessmen t No Information Instructions Date Instruction Additional Infor gracy Dietary needs education Related to Overweight Dietary needs education Related to Overweight Prescribed activity/exercise edu cation Related to Overweight Prescribed activity/exercise edu cation Related to Overweight Assessments Type Assessment Date No Information Patient Care Teams Name Effective Dates (start - stop) Status Members No Information
[2024-11-18 21:19] VITALS: BP 126/69; PULSE 68; RESP 13; TEMP 36.4; O2SAT 98
--- NOTE | 2024-11-18 21:50 | ED.ANIMALBIT ---
HPI - Animal Bite General Chief Complaint: Animal Bite Stated Complaint: Cat bite Time Seen by Provider: 11/18/24 21:41 History of Present Illness HPI narrative: Patient is a 59-year-old female who presents to the ER after being bit on her right forearm by a cat. She reports she is taking care of her ljjkbe-po-gjg's cat, who is mean, and it bit her. Patient reports she has 3 puncture wounds. The wounds blood immediately afterwards. Patient clean the wound with soap and water and then use alcohol pad as to clean the sites. She endorses a history of an autoimmune disorder, so she has increased concerns for infection. Patient denies any decreased range of motion, purulence drainage from the sites, or excessive swelling. Related Data Home Medications ?Medication ?Instructions ?Recorded ?Confirmed ?Last Taken ?Type adalimumab-adaz 40 mg/0.4 mL 40 mg subcut WEEKLY 05/10/24 05/10/24 Unknown History subcutaneous pen injector (Hyrimoz(CF) Pen) escitalopram oxalate 10 mg tablet 10 mg PO DAILY 05/10/24 05/10/24 Unknown History lorazepam 1 mg tablet 1 mg PO TID 05/10/24 05/10/24 Unknown History prednisone 5 mg tablet 5 mg PO DAILY 05/10/24 05/10/24 Unknown History Allergies Allergy/AdvReac Type Severity Reaction Status Date / Time Sulfa (Sulfonamide Allergy Intermediate Palpitation Verified 11/18/24 21:12 Antibiotics) s Review of Systems Review of Systems: All systems reviewed & are unremarkable except as noted in HPI and below Exam Narrative: GENERAL: Well appearing, well-nourished, non-toxic, in no acute distress. HEAD: Normocephalic, atraumatic. NECK: Supple. No adenopathy, no masses. RESPIRATORY: Airway patent, respirations nonlabored. Clear to auscultation bilaterally, no rales, rhonchi, wheezing. CARDIOVASCULAR: Regular rate and rhythm without murmurs, rubs, or gallops. Peripheral pulses 2+ and equal bilaterally. ABDOMINAL: Soft, nontender, nondistended, no hepatosplenomegaly. Normoactive BS. MUSCULOSKELETAL: Moves all extremities. Strength/ROM intact without gross deformities. SKIN: Warm, dry, normal color. No rashes. 2 puncture wound anterior forearm, proximal to R wrist, 1 puncture wound posterior forearm proximal to R wrist, bleeding controlled. NEURO: A&O X3. Speech clear. Cranial nerves II-XII intact. No ataxic movements. PSYCHIATRIC: Appropriate mood and affect. Normal interaction. Course Vital Signs Vital signs: Vital Signs Temperature 36.4 C 11/18/24 21:19 Pulse Rate 68 11/18/24 21:19 Respiratory Rate 13 11/18/24 21:19 Blood Pressure 126/69 11/18/24 21:19 Pulse Oximetry 98 11/18/24 21:19 Oxygen Delivery Room Air 11/18/24 21:19 Temperature 36.4 C 11/18/24 21:19 Pulse Rate 68 11/18/24 21:19 Respiratory Rate 13 11/18/24 21:19 Blood Pressure 126/69 11/18/24 21:19 Pulse Oximetry 98 11/18/24 21:19 Oxygen Delivery Room Air 11/18/24 21:19 MDM - Animal Bite MDM Narrative Medical decision making narrative: Patient is a 59-year-old female who presents to the ER after being bit on her right forearm by a cat. She reports she is taking care of her hbrepf-xw-krs's cat, who is mean, and it bit her. Patient reports she has 3 puncture wounds. The wounds blood immediately afterwards. Patient clean the wound with soap and water and then use alcohol pad as to clean the sites. She endorses a history of an autoimmune disorder, so she has increased concerns for infection. Patient denies any decreased range of motion, purulence drainage from the sites, or excessive swelling. Patient will be given her 1st dose of Augmentin here in the ER. She reports she is unsure when she last had her tetanus vaccinations so she will be vaccinated today. Patient strongly advised to watch the area closely for signs/symptoms of infection. Patient Education/Shared MDM: Patient strongly advised to follow-up with her PCP as soon as possible to ensure healing. Education was provided regarding importance of follow-up for signs/symptoms of infection. She will be discharged home with a prescription for Augmentin for 14 days. Strict return precautions provided. Patient verbalized understanding and is in agreement with plan. Vital signs stable at time of discharge. All questions answered. Differential Diagnosis Differential diagnosis: Likely bite by animal, cat bite and rabies contact Discharge Plan Discharge Clinical Impression: Bite by animal, Cat bite Patient Disposition: Home Condition: Stable Instructions: Antibiotic Form, Animal Bite (ED) Additional Instructions: Please return to the ER with any worsening symptoms. Follow-up with primary care provider as soon as possible to ensure wound healing. Take all medications as prescribed, including regularly scheduled medications. Complete your full dose of antibiotics. Patient Language: Slovak Prescriptions: New amoxicillin-pot clavulanate 875-125 mg tablet 1 tablet PO Q12H 14 Days Qty: 20 0RF No Action adalimumab-adaz [Hyrimoz(CF) Pen] 40 mg/0.4 mL pen injector 40 mg SUBCUT WEEKLY escitalopram oxalate 10 mg tablet 10 mg PO DAILY lorazepam 1 mg tablet 1 mg PO TID prednisone 5 mg tablet 5 mg PO DAILY amoxicillin-pot clavulanate 875-125 mg tablet 1 tablet PO Q12H Qty: 14 0RF Follow-up/Referrals: Blaine,Je Doran MD [Primary Care Provider, Unknown] Time of Disposition: 22:00
[2024-11-18] MEDS: TETANUS,DIPHTHERIA,AC PERTUSSIS ADULT (0.5 ML) BOOSTRIX IM (22:02)
--- OUTSIDE RECORDS SUMMARY | 2024-11-18 22:09 | XMS_ITS | Clinical Summary ---
Author Organization [facility] Address [address] [place] [address] Phone Care Team Providers Care Senior Data Architect Name Role Phone Je Valladares MD Primary Care Provider [phone] Social History Tobacco Use Types Packs/Day Years Used Date Smoking Tobacco: Never Assessed Comments Unknown Sex and Gender Information Value Date Recorded Sex Assigned at Not on file Legal Sex Female 5:42 AM TELEPHONE SERVICE ADVISER Gender Identity Not on file Sexual Orientation Not on file Plan of Treatment Health Maintenance Due Date Last Done Comments DTAP/TDAP/TD VACCINES (1 - Tdap) 1985 HEPATITIS B VACCINES (1 of 3 - 19+ 3-dose series) 06/27 HPV/Cotest (21-29) 07/24/1987 CERVICAL CANCER SCREENING 1996 HPV/Cotest (30-65) 1996 PAP SMEAR 1996 BREAST CANCER SCREENING 06/04/2009 06/04/2008 COLORECTAL SCREENING 07/24/2011 Colorectal Cancer Screening 07/24/2011 FIT-DNA Q 3 years 07/24/2011 FIT/FOBT Q 1 year 07/24/2011 Flex Sig/CT Colonography Q 5 years 07/24/2011 ZOSTER VACCINE (1 of 2) 2016 INFLUENZA VACCINE (#1) 2024 Procedures Procedure Name Priority Date/Time Associated Diagnosis Comments MAMMO DIAGNOSTIC UNI LEFT W OR WO CAD Routine 06/04/2008 12:55 PM CDT from Last 3 Months or Most Recently Relevant to Health Maintenance Results * MAMMO DIGITAL DIAG UNI LEFT (06/04/2008 12:55 PM CDT) Anatomical Region Laterality Modality Breast Left Other 06/04/2008 12:5 5 PM CDT Narrative 06/05/2008 7:39 AM CDT [facility] [place] [address] [place], [place] [address] Admit Date: 06/04/2008 ALONDRA PARKER Sex: F Admit Prov: LESLIE LOPEZ Date: 1965 Primary Care Prov: CMRN: [id number] Room: ORALI[facility]ay SSN: [id number] IMAGING SERVICES Ordering Prov: LESLIE LOPEZ Accession Number: [id number] Interpretation LEFT BREAST STEREOTACTIC CORE BIOPSY WITH TISSUE MARKER PLACEMENT, SPECIMEN RADIOGRAPH, LEFT BREAST FULL FIELD DIGITAL DIAGNOSTIC MAMMOGRAM WITH CAD. 06/04/08 History: The patient had outside imaging performed at [facility] which demonstrated left breast microcalcifications. Stereotactic core biopsy has been recommended. Procedure and Findings: The risks and potential benefits of the procedure were discussed with the patient and written informed consent was obtained. The patient was placed in the prone position on the stereotactic table with the breast in mediolateral compression and the area of interest was localized and targeted utilizing digital imaging with stereotactics. After sterile preparation of the skin, 1% lidocaine was utilized for local anesthesia at the skin puncture site and 2% lidocaine with epinephrine was utilized for deeper local anesthesia/hemostasis about the biopsy site. A 9 gauge Sellfyos vacuum assisted biopsy needle was advanced to the level of the calcifications of interest from a mediolateral approach using stereotactic guidance and a total of 7 tissue cores were obtained. The specimen radiograph demonstrated that multiple microcalcifications are included within the tissue cores. A tissue marker clip was then placed at the biopsy site. The needle was removed and hemostasis was achieved. A sterile bandage and an ice pack were applied. The patient tolerated the procedure well and there is no evidence of significant immediate complication. The patient was given verbal as well as written postprocedural instructions prior to release from the department. The tissue cores were submitted to surgical pathology in formalin for histologic analysis. A two-view left unilateral digital mammogram was obtained postprocedure and this demonstrated that the tissue marker clip is in the expected location. Impression: Technically successful stereotactic core biopsy with tissue marker placement. Assessment BIRADS: Post procedure mammograms for marker placement Recommendation: No recommendation required Dictated by: LUCITA PATEL Electronically signed by: LUCITA PATEL 06/05/2008 07:38 Transcribed: 06/04/2008 14:27 AMK Procedure Note Lucita Patel - 06[place]05/2008 [facility] [place] [address], [place] [address] Admit Date: 06/04/2008 CBALONDRA RAMIREZ Sex: F Admit Prov: LESLIE LOPEZ Date: 1965 Primary Care Prov: CMRN: [id number] Room: BASSAM SSN: [id number] IMAGING SERVICES Ordering Prov: LESLIE LOPEZ Interpretation LEFT BREAST STEREOTACTIC CORE BIOPSY WITH TISSUE MARKER PLACEMENT,SPECIMEN RADIOGRAPH, LEFT BREAST FULL FIELD DIGITAL DIAGNOSTIC MAMMOGRAM WITHCAD. 06/04/08 History: The patient had outside imaging performed at [facility] which demonstrated left breastmicrocalcifications. Stereotactic core biopsy [...] anesthesia/hemostasis about the biopsysite. A 9 gauge CurbStand vacuum assisted biopsy needle was advanced to [...] Most Recently Relevant to Health Maintenance Insurance BS BLUE ACCESS/TRUE BLUE PPO Care Teams Senior Data Architect Relationship Specialty Start Date End Date Je Valladares MD PCP - General 05/28/08
--- OUTSIDE RECORDS SUMMARY | 2024-11-18 22:09 | XMS_ITS | Encounter Summary ---
Author Organization [facility] Health Address [address] [place] [address] Care Team Providers Care Milling Operator Name Role Phone Je Valladares MD Primary Care Provider Encounter Details Date Type Department Care Team (Late st Contact Info) Description 04/28/2016 [facility] Outpatient Visit [facility] [address] [place] [address] El Luis MD [address] [place] [phone] Social History Tobacco Use Types Packs/Day Years Used Date Smoking Tobacco: Never Smokeless Tobacco: Never Alcohol Use Standard Drinks/Week Comments Yes 0 (1 standard drink = 0.6 oz pur e alcohol) 2 a week Comments No Sex and Gender Information Value Date Recorded Sex Assigned at Female 05/13/2021 5:37 AM PRINT LINE SUPERVISOR Legal Sex Female 10:29 AM PRINT LINE SUPERVISOR Gender Identity Female 05/13/2021 5:37 AM PRINT LINE SUPERVISOR Sexual Orientation Not on file documented as of this encounter Plan of Treatment Upcoming Encounters Date Type Department Care Team (Late st Contact Info) Description 02/18/2025 10:30 AM PRINT LINE SUPERVISOR Procedure visit [facility] [address] [place] [phone] 02/18/2025 11:00 AM PRINT LINE SUPERVISOR Office Visit [facility] [address] [place] [address] Juan Hubbard MD [address] [place] [address] documented as of this encounter Visit Diagnoses Not on filedocumented in this encounter Care Teams Milling Operator Relationship Specialty Start Date End Date Je Valladares MD [address] [phone] PCP - General Internal Medicine 04/23/16 documented as of this encounter
--- OUTSIDE RECORDS SUMMARY | 2024-11-18 22:09 | XMS_ITS | Patient Health Record ---
Author Organization [facility] As Audanika Address [address] [place] [address] Care Team Providers Care Fan Runner Name Role Phone Stanislav Wright Unavailable [phone] Reason For Referral No Information Medications Medication SIG (Take, Route, Frequency, Duration) Notes Start Date End Date Status Estradiol 0.01 % (0.1 mg/gram) Cream Vaginal *Pick strength-form from [employer] for eRX* Active Benzonatate 200 MG Capsule Oral Active Diclofenac Sodium 1% Gel Transdermal Active Doxycycline Hyclate 100 MG Tablet Oral Active Fluconazole 150 MG Tablet Oral Active Estradiol 0.025 mg/24 hr Patch Twice Weekly Transdermal Active Cyclobenzaprine HCl 5 MG Tablet Oral Active Nitrofurantoin Monohyd Macro 100 MG Capsule Oral Active HUMIRA(CF) PEN 40 MG/0.4 ML SUBCUTANEOUS KIT *Reorder from [employer] for eRx and Interaction Alerts* Active Progesterone Micronized 100 MG Capsule Oral Active Flowflex COVID-19 Ag Home Test Kit In Vitro *Reorder from [employer] for eRx and Interaction Alerts* Active Escitalopram Oxalate 10 MG Tablet Oral Active predniSONE 5 MG Tablet Oral Active Ciprofloxacin HCl 250 MG Tablet Oral Active Paxlovid (300/100) 20 x 150 MG & 10 x 100MG Tablet Therapy Pack Oral *Reorder from [employer] for eRx and Interaction Alerts* Active Amoxicillin-Pot Clavulanate 875-125 MG Tablet Oral Active Amoxicillin 500 MG Capsule Oral Active Azithromycin 250 MG Tablet Oral Active LORazepam 1 MG Tablet Oral Active Plan Of Treatment No Information Insurance Providers Payer Name Payer Address Payer Phone Subscriber Number Group Number Insured Name Patient Relationship to Insured Coverage Start Date Coverage End Date [facility] [address] [place] [phone] [id number] BRIAN RILEY Self - patient is the insured
--- OUTSIDE RECORDS SUMMARY | 2024-11-18 22:09 | XMS_ITS | Encounter Summary ---
Author Organization [facility] Address [address] [place] [address] Care Team Providers Care Electrical And Instrument Engineer Name Role Phone Je Valladares MD Primary Care Provider Encounter Details Date Type Department Care Team (Latest Contact Info) Description 06/04/2008 Outpatient Historical [facility] Lopez, Leslie Velasquez MD [address] [place] [address] [place] [phone] Abnormal Mammogram, Unspecified Social History Tobacco Use Types Packs/Day Years Used Date Smoking Tobacco: Never Assessed Comments Unknown Sex and Gender Information Value Date Recorded Sex Assigned at Not on file Legal Sex Female 5:42 AM BELL 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 [facility] [place], [place] [address] Patient: ALONDRA PARKER : 1965 Procedure Date: 06/04/2008 Accession Date: 06/05/2008 Case No: [id number] Ordering Dr: SARIKA PATEL Case types AW, BW, FW, NW and SH are performed by [facility], [place], [place] SURGICAL PATHOLOGY & NON-GYNECOLOGIC CYTOPATHOLOGY REPORT DIAGNOSIS LEFT BREAST, STEREOTACTIC 9-GAUGE CORE BIOPSY: - FIBROCYSTIC CHANGES. - RARE MICROCALCIFICATIONS PRESENT (CALCIUM OXALATE). Specimen Description: Left breast calcifications in formalin at 12:25. Operative Procedure: Left breast stereotactic core biopsy, 6-9 gauge cores. Patient Information/History/Di agnosis: Left breast microcalcifications, fibrocystic change versus DCIS. Gross: Received in one container labeled Alondra Erickson., left breast calcifications are 12 fibrofatty tissue cores, 0.8 cm, 0.9 cm, 1.0 cm, 0.8 cm, 0.5 cm, 1.0 cm, 0.9 cm, 5.0 cm, 3.9 cm, 2.1 cm, 2.6 cm, and 3.2 cm in lengths and ranging in diameter from 0.1 cm to 0.4 cm. Also received are nine core fragments ranging from 0.2 cm to 0.4 cm. The specimen is submitted entirely in blocks A1 through A5. [facility] 06.05.2008 12:06 pm Microscopic: Sections are labeled [id number], LynneFranklin, Alondra Lopez. The core biopsy from the left breast displays fibrocystic changes. No microcalcifications are seen in the initial sections The blocks are taken to Radiology where they are x-rayed. The radiologist indicates probable microcalcifications in blocks A1 and A3. Deeper levels are obtained of these blocks. Rare microcalcifications (calcium oxalate) are identified in the deeper levels of block A3, in ducts lined by apocrine metplastic cells. The findings appear benign throughout. COMMENT: Certain proliferative lesions identified in breast biopsies are associated with an increased relative risk for the development of invasive carcinoma. The relative risks are compared to the risks for women who have not had a biopsy. The relative risks associated with specific entities are listed below. 1. No increased risk: adenosis; duct ectasia; fibrosis; fibroadenoma (without complex features); mild hyperplasia without atypia; cysts; apocrine or squamous metaplasia; 2. Slightly increased risk (1.5- to 2.0-fold): fibroadenoma with complex features; moderate or florid hyperplasia without atypia; sclerosing adenosis; papilloma; 3. Moderately increased risk (4.0- to 5.0-fold): atypical lobular hyperplasia; atypical ductal hyperplasia; 4. Markedly increased risk (8.0- to 10.0-fold): ductal carcinoma in situ; atypical lobular hyperplasia or atypical ductal hyperplasia when there is also a family history of breast carcinoma affecting a first-degree relative. Reference: Arch Pathol Lab Med 1998;122:5932-4000. BBK/PJS 06.07.2008 08:41 am Staging Form: No ELECTRONIC SIGNATURE FOR ALANNA HARRIS M.D.- 06/07/08 10:47 am INTERFACE SYSTEM 06/04/2008 5:00 PM CDT us Sarika Lin MD PATHOLOGY/CYTOLOGY ORDERABL ES Final Result INTERFACE SYSTEM Refer to clinic/hospital department * MAMMO STEREOTACTIC BREAST BX LT (06/04/2008 12:55 PM CDT) Anatomical Region Laterality Modality Breast Left Other 06/04/2008 12:5 5 PM CDT Narrative 06/05/2008 7:39 AM CDT [facility] [address] [place], [place] [address] Admit Date: 06/04/2008 ALONDRA PARKER Sex: F Admit Prov: LESLIE LOPEZ Date: 1965 Primary Care Prov: CMRN: [id number] Room: [facility] SSN: [id number] IMAGING SERVICES Ordering Prov: LESLIE LOPEZ Accession Number: [id number] Interpretation LEFT BREAST STEREOTACTIC CORE BIOPSY WITH TISSUE MARKER PLACEMENT. 06/04/08 History: The patient had outside imaging performed at [facility] which demonstrated left breast microcalcifications. Stereotactic core [...] about the biopsy site. A 9 gauge [email or web address] vacuum assisted biopsy needle was advanced to [...] 07:38 Transcribed: 06/04/2008 14:27 AMK Procedure Note Sarika Patel - 06/05/2008 [facility] [address], [place] [address] Admit Date: 06/04/2008 ALONDRA PARKER Sex: F Admit Prov: LESLIE LOPEZ Date: 1965 Primary Care Prov: CMRN: [id number] Room: [facility] N: [id number] IMAGING SERVICES Ordering Prov: LESLIE LOPEZ Interpretation LEFT BREAST STEREOTACTIC CORE BIOPSY WITH TISSUE MARKER PLACEMENT.06/04/08 History: The patient had outside imaging performed at [facility] which demonstrated left breastmicrocalcifications. Stereotactic core biopsy [...] anesthesia/hemostasis about the biopsysite. A 9 gauge [email or web address] vacuum assisted biopsy needle was advanced to [...] * XR CONSULTATION (06/04/2008 12:55 PM CDT) 06/04/2008 12:5 5 PM CDT Narrative INTERFACE SYSTEM - 06/07/2008 4:30 PM CDT [facility] [address] [place], [place] [address] Admit Date: 06/04/2008 ALONDRA PARKER Sex: F Admit Prov: LESLIE LOPEZ Date: 1965 Primary Care Prov: CMRN: [id number] Room: [facility] SSN: [id number] IMAGING SERVICES Ordering Prov: LESLIE LOPEZ Accession Number: [id number] Addendum ADDENDUM TO LEFT BREAST STEREOTACTIC CORE BIOPSY 06/04/2008: The pathology from the patient's recent left breast stereotactic core biopsy reveals fibrocystic changes; rare microcalcifications are present (calcium oxalate). These findings are benign and concordant. The patient will be informed of the above findings by Dr. Lopez's office. The patient should return to annual mammography. Dictated by: SARIKA PATEL Electronically signed by: SARIKA PATEL 06/07/2008 16:30 Transcribed: 06/07/2008 16:26 SDJ Interpretation LEFT BREAST STEREOTACTIC CORE BIOPSY WITH TISSUE MARKER PLACEMENT. 06/04/08 History: The patient had outside imaging performed at [facility] which demonstrated left breast microcalcifications. Stereotactic core [...] about the biopsy site. A 9 gauge [email or web address] vacuum assisted biopsy needle was advanced to [...] stereotactic core biopsy with tissue marker placement. Report revised on 06/07/2008 4:30:15 PM by SARIKA PATEL Dictated by: SARIKA PATEL Electronically signed by: SARIKA PATEL 06/05/2008 07:38 Transcribed: 06/04/2008 14:27 AMK Procedure Note Sarika Patel - 06/07/2008 [id number] [place], [place] [address] Admit Date: 06/04/2008 ALONDRA PARKER Sex: F Admit Prov: LESLIE LOPEZ Date: 1965 Primary Care Prov: CMRN: [id number] Room: [facility] SSN: [id number] IMAGING SERVICES Ordering Prov: LESLIE LOPEZ Addendum [...] patient had outside imaging performed at [facility] which demonstrated left breastmicrocalcifications. Stereotactic core biopsy [...] anesthesia/hemostasis about the biopsysite. A 9 gauge [email or web address] vacuum assisted biopsy needle was advanced to [...] Lopez MD DIAGNOSTIC IMAGING ORDERABLE S Edited INTERFACE SYSTEM Refer to clinic/hospital department * MAMMO DIGITAL DIAG UNI LEFT (06/04/2008 12:55 PM CDT) Anatomical Region Laterality Modality Breast Left Other 06/04/2008 12:5 5 PM CDT Narrative 06/05/2008 7:39 AM CDT [facility] [address] [place], [place] [address] Admit Date: 06/04/2008 ALONDRA PARKER Sex: F Admit Prov: LESLIE LOPEZ Date: 1965 Primary Care Prov: CMRN: [id number] Room: [facility] SSN: [id number] IMAGING SERVICES Ordering Prov: LESLIE LOPEZ Accession Number: [id number] Interpretation LEFT BREAST STEREOTACTIC CORE BIOPSY WITH TISSUE MARKER PLACEMENT, SPECIMEN RADIOGRAPH, LEFT BREAST FULL FIELD DIGITAL DIAGNOSTIC MAMMOGRAM WITH CAD. 06/04/08 History: The patient had outside imaging performed at [facility] which demonstrated left breast microcalcifications. Stereotactic core [...] about the biopsy site. A 9 gauge [email or web address] vacuum assisted biopsy needle was advanced to [...] 07:38 Transcribed: 06/04/2008 14:27 AMK Procedure Note Sarika Patel - 06/05/2008 [id number] [place], [place] [address] Admit Date: 06/04/2008 ALONDRA PARKER Sex: F Admit Prov: LESLIE LOPEZ Date: 1965 Primary Care Prov: CMRN: [id number] Room: [facility] SSN: [id number] IMAGING SERVICES Ordering Prov: LESLIE LOPEZ Interpretation LEFT BREAST STEREOTACTIC CORE BIOPSY WITH TISSUE MARKER PLACEMENT,SPECIMEN RADIOGRAPH, LEFT BREAST FULL FIELD DIGITAL DIAGNOSTIC MAMMOGRAM WITHCAD. 06/04/08 History: The patient had outside imaging performed at [facility] which demonstrated left breastmicrocalcifications. Stereotactic core biopsy [...] anesthesia/hemostasis about the biopsysite. A 9 gauge [email or web address] vacuum assisted biopsy needle was advanced to [...] PM CDT Narrative 06/05/2008 7:39 AM CDT [facility] [address], [place] [address] Admit Date: 06/04/2008 SALVAD[facility] PARKERDANILO Lopez Sex: F Admit Prov: LESLIE LOPEZ Date: 1965 Primary Care Prov: CMRN: [id number] Room: [facility] N: [id number] IMAGING SERVICES Ordering Prov: LESLIE LOPEZ Accession Number: [id number] Interpretation LEFT BREAST STEREOTACTIC CORE BIOPSY WITH TISSUE MARKER PLACEMENT. 06/04/08 History: The patient had outside imaging performed at [facility] which demonstrated left breast microcalcifications. Stereotactic core [...] about the biopsy site. A 9 gauge [employer] vacuum assisted biopsy needle was advanced to [...] stereotactic core biopsy with tissue marker placement. Dictated by: SARIKA PATEL Electronically signed by: SARIKA PATEL 06/05/2008 07:38 Transcribed: 06/04/2008 14:27 AMK Procedure Note Sarika Patel - 06/05/2008 [facility] [address] [place], [place] [address] Admit Date: 06/04/2008 CBALONDRA RAMIREZ Sex: F Admit Prov: LESLIE LOPEZ Date: 1965 Primary Care Prov: CMRN: [id number] Room: [facility] SSN: [id number] IMAGING SERVICES Ordering Prov: LESLIE LOPEZ Interpretation LEFT BREAST STEREOTACTIC CORE BIOPSY WITH TISSUE MARKER PLACEMENT.06/04/08 History: The patient had outside imaging performed at [facility] which demonstrated left breastmicrocalcifications. Stereotactic core biopsy [...] anesthesia/hemostasis about the biopsysite. A 9 gauge [employer] vacuum assisted biopsy needle was advanced to [...] unspecified documented in this encounter Care Teams Electrical And Instrument Engineer Relationship Specialty Start Date End Date Je Valladares MD PCP - General 05/28/08 documented as of this encounter
--- OUTSIDE RECORDS SUMMARY | 2024-11-18 22:09 | XMS_ITS | Patient Health Record ---
Author Organization [facility] Address [address] [place], [place] [id number] Care Team Providers Care Entry Level Sales Associate Name Role Phone EVA RIVERA Unavailable [phone] Je Valladares Unavailable Unavailable Reason For Referral No Information Plan Of Treatment No Information Insurance Providers Payer Name Payer Address Payer Phone Subscriber Number Group Number Insured Name Patient Relationship to Insured Coverage Start Date Coverage End Date [facility] [address] [address] [place] [address] [id number] BRIAN VIVAR Self - patient is the insured
--- OUTSIDE RECORDS SUMMARY | 2024-11-18 22:09 | XMS_ITS | Clinical Summary ---
Author Organization [facility] Address [address] [place] [address] Care Team Providers Care Spinning Operator Name Role Phone Je Valladares MD Primary Care Provider [phone] Allergies Active Allergy Reactions Criticality Noted Date [...] total) by mouth daily 12 capsule 3 12/02/2023 Active estradioL (VIVELLE-DOT) 0.025 mg/24 hrIndications:Ho rmone replacement therapy Place 1 patch on the skin 2 (two) times a week 24 patch 3 12/05/2023 Active wvhuikqt-ssn-xkk n-FA-vit K-lut (Centrum Silver Women) 8 mg iron-400 mcg-50 mcg tablet daily Active predniSONE (DELTASONE) 5 mg tabletIndication s:Psoriatic arthritis (HCC) Take 1 tablet (5 mg) by mouth daily 90 tablet 1 08/17/2024 Active adalimumab-adaz (Hyrimoz,CF, Pen) 40 mg/0.4 mL pen injector Inject 40 mg under the skin every 14 (fourteen) days 2.4 mL 1 08/27/2024 Active Active Problems Problem Noted Date Diagnosed Date Vaginal pain 10/09/2024 Assessment & Plan (10/09/2024 11:46 AM CDT): -Vaginal discomfort. Pressure. Exam reveals a probable urethral cyst or caruncle or polyp. Discussed with the patient. Explained that do not feel this would cause discomfort however do recommend urologic evaluation. She agrees. Well woman exam with routine gynecological exam 06/06/2024 Assessment & Plan (06/06/2024 12:15 PM CDT): -Well-woman examination. Pap smear obtained today. -On estradiol patch 0.025. Prometrium 100 mg times 12 every 90 days. Discussed HRT associated risks. -Vaginal dryness. Encouraged coconut oil, olive oil etc. -Encouraged monthly self-breast examinations. Mammogram performed today. 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 Encounters Date Type Department Care Team Description 10/09/2024 11:30 AM CDT Office Visit [facility] at [address] [phone] Yagn Perkins MD Vaginal pain (Primary Dx) 10/08/2024 Telephone [facility] at [address] [phone] Margarita Lucas 10/05/2024 Telephone [facility] at [address] [phone] Yang Perkins MD Patient issue/concern 08/23/2024 Documentation [facility] [address] [place] [address] Cherise Drew CPhT 08/23/2024 Telephone [facility] Medicine Rheumatology [address] [place] [address] 5th [place] [address] [place] [phone] Arnold Hunt MD 08/22/2024 Telephone [facility] at [address] [phone] Yang Perkins MD Patient issue/concern 08/21/2024 Telephone [facility] Medicine Rheumatology [address] Medicine 5th [place] [address] [place] [phone] Arnold Hunt MD from Last 3 Months Immunizations Immunization Administration Dates Next Due Influenza, Quadrivalent, Rec ombinant, Egg Free, Preservative Free, Intramuscular 01/13/2020 Influenza, Quadrivalent, Split, Intramuscular Surgical History Surgery Date Site/Laterality Comments SECTION HIP ARTHROPLASTY 05/26/2021 Right JOINT REPLACEMENT Medical History Medical History Date Comments Obesity Anxiety Arthritis Osteoarthritis Psoriasis Autoimmune disease 1973 Osteoporosis Osteopenia 2005 Family History Medical History Relation Name Comments [...] Date Smoking Tobacco: Former Cigarettes 0.2 10 0 03/28/1987 - 1997 Smokeless Tobacco: Never Tobacco Cessation:Counseling [...] on file Legal Sex Female 4:16 AM ENGINEERING TEST SPECIALIST Gender Identity Female 10/08/2020 7:57 AM CDT [...] Sign Reading Time Taken Comments Blood Pressure 120/76 10/09/2024 11:28 AM CDT Pulse 82 08/17/2024 9:38 AM CDT Temperature 36.8 C (98.2 F) 05/25/2024 11:53 AM ENGINEERING TEST SPECIALIST Respiratory Rate 18 05/26/2021 2:10 PM ENGINEERING TEST SPECIALIST Oxygen Saturation 99% 05/25/2024 11:53 AM ENGINEERING TEST SPECIALIST Inhaled Oxygen Concentration - - Weight 72.6 kg (160 lb) 10/09/2024 11:28 AM CDT Height 162 cm (5' 3.78) 08/17/2024 9:38 AM CDT Body Mass Index 27.65 08/17/2024 9:38 AM CDT Plan of Treatment Health Maintenance Due Date Last Done Comments Colon Cancer Screening-Colonoscopy 1966 DTaP/Tdap/Td Vaccine (1 - Tdap) 1977 Hepatitis B Screening 1984 Zoster Vaccine (1 of 2) 2016 Depression Screening 03/19/2022 03/19/2021 Covid-19 Vaccine ( season) 2023 05/27/2020, 04/24/2020 Influenza Vaccine (#1) 2024 , 01/13/2020, 02/09/2016 Cervical Cancer Screening 06/06/2025 06/06/2024, Regular Well Visit/Exam 18-64 06/06/2025 06/06/2024, 06/08/2023 Breast Cancer Screening-Mammogram 06/15/2025 06/15/2024, 06/06/2024, 06/06/2024, Additional history exists Hepatitis C Screening Completed 08/17/2024 Pneumococcal vaccine <65 Aged Out No longer eligible based on patient's age to complete this topic Medical Devices Implanted Type Area Bingo Usher Device Identifier Shelf Expiration Date Model / Serial / Lot [employer] [id number] Procotyl Prime 50mm Shell Acetabular Sterile - Sna - [id number] Implanted:Qty: 1 on 05/26/2021 by Daniel Valencia MD at [facility] Other - see comments Right: Hip [employer] [id number] 12/16/2028 [id number] / NA / [id number] Description:Implant pause pe rformed [employer] [id number] Procotyl Prime 36mm Liner Acetabular Sterile Latex Free - Sna - [id number] Implanted:Qty: 1 on 05/26/2021 by Daniel Valencia MD at [facility] Other - see comments Right: Hip [employer] [id number] 10/29/2028 [id number] / NA / [id number] Description:Implant pause pe rformed [employer] [id number] Hip 3 High Offset Stem Femoral Sterile Latex Free - Sna - [id number] Implanted:Qty: 1 on 05/26/2021 by Daniel Valencia MD at [facility] Other - see comments Right: Hip [employer] [id number] 08/15/2028 [id number] / NA / [id number] Description:Implant pause pe rformed [employer] [id number] Procotyl 36mm 12/14 Large Head Femoral Biolox Delta Sterile - Sna - [id number] Implanted:Qty: 1 on 05/26/2021 by Daniel Valencia MD at [facility] Other - see comments Right: Hip [employer] [id number] 10/05/2027 [id number] / NA / [id number] Description:Implant pause pe rformed [employer] [id number] Dynasty Lineage 6.5mm 40mm Acetabular Screw Bone Biofoam - Sna - [id number] Implanted:Qty: 1 on 05/26/2021 by Daniel Valencia MD at [facility] Screw Right: Hip [employer] [id number] 10/16/2028 [id number] / NA / [id number] Description:Implant pause pe rformed [employer] [id number] Dynasty Lineage 6.5mm 25mm Acetabular Screw Bone Biofoam - Sna - [id number] Implanted:Qty: 1 on 05/26/2021 by Daniel Valencia MD at [facility] Screw Right: Hip [employer] [id number] 08/02/2026 [id number] / NA / [id number] Description:Implant pause pe rformed Procedures Procedure Name Priority Date/Time Associated Diagnosis Comments HEPATITIS C ANTIBODY Routine 08/17/2024 10:22 AM CDT Psoriatic arthritis (HCC) High risk medication use SCREENING MAMMOGRAM RIGHT W VINNY UNILATERAL ONLY Schedule Routine, Read Routine (OP Routine) 06/15/2024 8:13 AM CDT PAP WITH REFLEX TO HIGH RISK HPV Routine 06/06/2024 12:15 PM CDT Well woman exam with routine gynecological exam from Last 3 Months or Most Recently Relevant to Health Maintenance Results * Hepatitis C antibody Blood (08/17/2024 10:22 AM CDT) Hep C Ab Nonreactive Nonreactive Comment:Antibodies to HCV no t detected. Does NOT exclude the possibility of recent exposure to HCV. Current interpretive data was last revised on 21 Blood 08/17/2024 10:2 2 AM CDT 08/17/2024 12:30 PM CDT Arnold Hunt MD LAB MICROBIOLOGY - GEN ERAL ORDERABLES Final Result [facility] Department [place] [address] * Screening Mammogram Right W Vinny Unilateral Only (06/15/2024 8:13 AM CDT) Anatomical Region Laterality Modality Breast Right Mammography us Historical Provider MD [facility] MAMMO PROCEDURES Lili l Result * Pap with reflex to High Risk HPV and Genotyping (Cytology Component) (06/06/2024 12:15 PM CDT) Thin prep (Pap test) 06/06/2024 12:15 PM CDT 06/07/2024 9:14 AM CDT Narrative PATHOLOGY [facility] - 06/13/2024 12:18 PM CDT EPIC results best viewed via link to PDF [address] [place], [place] [address] Tele: Zofia Mustafa MD - Loom Changeover Operator CYTOLOGY REPORT Note to Patients: This report [...] questions and explain the details. Patient Name: ALONDRA PARKER Address: [address] [place] [address] Gender: F : 1965 (Age: 58) Service: Location: [facility] : [id number] [facility] #: [id number] Patient Type: [facility] SPECIMEN Taken: 06/06/2024 Reported: 06/13/2024 Physician(s): Dr. Yang Perkins M.D. FINAL DIAGNOSIS: SOURCE OF SPECIMEN - ThinPrep Pap w/ reflex HPV: STATEMENT OF ADEQUACY Source: Cervical/Endocervical - Satisfactory for interpretation - Endocervical/Transformation zone component absent or insufficient - Case screened using computer assisted imaging technology GENERAL CATEGORIZATION: - Negative for intraepithelial lesion or malignancy jx/06/13/2024 12:18SHANE Sloan (ASCP) Report Reviewed and Electronically Signed By SHANE Sloan (ASCP)Clerical Data Follow A; G0145 CLINICAL DIAGNOSIS AND HISTORY Last Menstrual Period: NONE Menstrual History: Post-menopausal REPORT IMAGES AND/OR SCANNED DOCUMENTS ONLY VIEWABLE IN PDF FORMAT The Pap test is a screening test used to aid in the detection of cervical cancer and its precursors. It should not be the sole means by which malignant and premalignant lesions are diagnosed. Both false negative and false positive results may occur. It also has poor sensitivity for the detection of endometrial lesions and should not be used to evaluate suspected endometrial abnormalities. For these reasons it is most important to obtain Pap tests at regular intervals, as recommended by your physician or nurse practitioner. Frozen section, operating room consultation, gross examination and dissection, and case sign out may have been performed in part or completely in the following laboratories: [facility], [address], [place] [address] [facility], [address], [place] [address]. Yang Perkins MD LAB CYTOLOGY ORDERABLES Lili montalvo Result PATHOLOGY [facility] Laboratory Receiving [address] [place] [id number] from Last 3 Months or Most Recently Relevant to Health Maintenance Insurance [facility] [id number] [facility] [id number] Advance Directives For more information, please contact: [phone] * Full Code (Latest Code Status on File) Date Activated Date Inactivated Comments 05/26/2021 11:34 AM 05/26/2021 11:35 PM Care Teams Spinning Operator Relationship Specialty Start Date End Date Je Valladares MD PCP - General 02/08/20
--- OUTSIDE RECORDS SUMMARY | 2024-11-18 22:09 | XMS_ITS | Clinical Summary ---
Author Organization [facility] Address [address] [place] [address] Care Team Providers Care Healthcare Administration Internship Name Role Phone Je Valladares MD Primary Care Provider Source Comments [facility] [place] [facility],non-owned Affiliates and Associated Physician Practices is amultiple site organization consisting of ambulatory clinics and hospital sitesin [place], [place], [place] and [place]. This disclosure is being madepursuant to the Care Everywhere program and may not contain all information available regarding this patient. Last updated 17.[facility] Allergies Active Allergy Reactions Criticality Noted Date Comments Sulfa Drugs Other Medium 04/28/2016 shakes Medications * Be aware that medications may not be up to date on this document. Alwaysverify current medications with the patient. escitalopram (LEXAPRO) 10 MG tablet Take 1 (one) tablet by mouth once daily 6 Active LORazepam (ATIVAN) 1 MG tablet Take 1 (one) tablet by mouth 2 times daily 6 Active predniSONE (DELTASONE) 5 MG tablet 6 Active estradiol (VIVELLE-DOT) 0.025 MG/24HR patch 1 Active Progesterone 100 MG capsule 1 Active Cholecalcifero l 50 MCG (1999) Take 2,000 Units by mouth every morning Active Multiple Vitamin (MULTIVITAMIN ADULT PO) Active meloxicam (Mobic) 7.5 MG tablet Take 1 (one) tablet by mouth once daily 4 Active Hyrimoz 40 MG/0.4ML injection Inject 0.4 mL subcutaneously every 14 days 4 Active Calcium Carbonate (CALCIUM 500 PO) Active Active Problems Problem Noted Date Diagnosed Date Elevated liver enzymes 02/01/2020 Overview (08/10/2023): 02/01/20 Fibroscan CAP 275, LSM 4.5 kPa 09/01/22 Fibroscan CAP 225, LSM 4.8 kPa 08/08/23 Fibroscan CAP 265, LSM 7.3 kPa Anxiety 02/01/2020 Low back pain 02/01/2020 Psoriatic arthritis 02/01/2020 Liver hemangioma 11/10/2016 Abnormal finding on breast imaging 08/26/2016 Family History Medical History Relation Name Comments [...] e alcohol) socially- a couple on weekends Comments No Sex and Gender Information Value Date Recorded Sex Assigned at Female 05/13/2021 5:37 AM SENIOR TECHNICAL SPECIALIST Legal Sex Female 10:29 AM SENIOR TECHNICAL SPECIALIST Gender Identity Female 05/13/2021 5:37 AM SENIOR TECHNICAL SPECIALIST Sexual Orientation Not on file Last Filed Vital Signs Vital Sign Reading Time Taken Comments Blood Pressure 124/49 06/04/2024 1:45 PM CDT Pulse 92 06/04/2024 1:45 PM CDT Temperature 36.2 C (97.2 F) 06/04/2024 1:45 PM CDT Respiratory Rate 18 08/03/2022 11:24 AM CDT Oxygen Saturation 100% 06/04/2024 1:45 PM CDT Inhaled Oxygen Concentration - - Weight 72.6 kg (160 lb) 06/06/2024 9:30 AM CDT Height 160 cm (5' 3) 06/06/2024 9:30 AM CDT Body Mass Index 28.34 06/06/2024 9:30 AM CDT Plan of Treatment Upcoming Encounters Date Type Department Care Team (Late st Contact Info) Description 02/18/2025 10:30 AM SENIOR TECHNICAL SPECIALIST Procedure visit [facility] [address], [place] [address] 02/18/2025 11:00 AM SENIOR TECHNICAL SPECIALIST Office Visit [facility] [address], [place] [phone] Juan Hubbard MD [address] [place] [address] Health Maintenance Due Date Last Done Comments COLOGUARD (AGES 45-75) - COLON CA SCREENING 1966 COLON MONITORING 1966 COLONOSCOPY - COLON CA SCREENING 1966 CT COLONOGRAPHY - COLON CA SCREENING 1965 Colorectal Cancer Screening 1966 FIT - COLON CA SCREENING 1966 FLEX SIG - COLON CA SCREENING 1966 HIV SCREENING 1981 DTAP/TDAP/TD VACCINES (1 - Tdap) 1985 HEPATITIS B VACCINE (1 of 3 - 19+ 3-dose series) 1985 PNEUMOCOCCAL VACCINE 50+ (1 of 1 - PCV) 2016 ZOSTER VACCINE (1 of 2) 2016 COVID-19 VACCINE (3 - 2023- season) 2023 05/27/2020, 04/24/2020 DEPRESSION SCREENING 03/28/2024 INFLUENZA VACCINE (#1) 2024 , 01/13/2020, 01/02/2018, Additional history exists LIPID TESTING 01/03/2026 01/03/2021 MAMMOGRAM 06/06/2026 06/06/2024, 05/26, 06/03/2023, Additional history exists SCREENING FOR DIABETES 08/18/2026 , 08/17/2022, 03/10/2022, Additional history exists PAP SMEAR 06/07/2027 06/06/2024, 06/08/2023 HEPATITIS C SCREENING Completed 12/14/2019 HIB VACCINE Aged Out No longer eligi ble based on patient's age to complete this topic HPV VACCINE Aged Out No longer eligi ble based on patient's age to complete this topic MENINGOCOCCAL (Group B) VACCINE SHARED DECISION-MAKING Aged Out No longer eligible based on patient's age to complete this topic MENINGOCOCCAL GROUPS A/C/Y/W VACCINE Aged Out No longer eligible based on patient's age to complete this topic Goals Goal Patient Goal Type Associated Problems Recent Progress Patient-Stated? Author Medication Management General On track( 025 1:44 PM CDT) Stephen Beatty, RN Note: Expected end date: ongoing Interventions: Take all medications as prescribed Let your doctor know right away about any changes in your medications Make sure to request a refill of your medication at least one week prior to your last dose Procedures Procedure Name Priority Date/Time Associated Diagnosis Comments MAMMO BILAT SCREENING W JUDY Routine 06/06/2024 9:47 AM CDT Screening mammogram for breast cancer BASIC METABOLIC PANEL (CALCIUM TOTAL) Routine 08/19/2023 12:05 PM CDT Fatty (change of) liver, not elsewhere classified LIPID PROFILE Routine 01/03/2021 10:59 AM CDT Elevated liver enzymes NAFLD (nonalcoholic fatty liver disease) HEPATITIS C ANTIBODY Routine 12/14/2019 3:03 PM CDT Elevated liver enzymes from Last 3 Months or Most Recently Relevant to Health Maintenance Results * Mammo Bilat Screening W Judy (06/06/2024 9:47 AM CDT) Anatomical Region Laterality Modality Breast Bilateral Mammography 06/06/2024 12:5 9 PM CDT Impressions 06/06/2024 1:05 PM CDT IMPRESSION: RIGHT diagnostic mammogram and possible right breast ultrasound are now recommended. OVERALL FINAL ASSESSMENT: BI-RADS Category 0. Incomplete - Need additional imaging evaluation. > Interpreting Provider: Jerri Morris MD on 06/06/2024 1:05 PM Narrative 06/06/2024 1:05 PM CDT EXAMINATION: BILATERAL DIGITAL SCREENING MAMMOGRAM AND BILATERAL BREAST TOMOSYNTHESIS HISTORY: Screening. COMPARISON: Serial examinations dating back to 04/01/2016 TECHNIQUE: BILATERAL digital breast tomosynthesis (DBT) and synthetic 2D digital mammogram images were obtained (bilateral craniocaudal and mediolateral oblique projections) including computer aided detection (CAD.) BREAST PARENCHYMAL COMPOSITION: Category B: There are scattered areas of fibroglandular density. MAMMOGRAM FINDINGS: There is a questionable focal asymmetry with possible associated architectural distortion in the RIGHT breast upper outer quadrant 8 cm from the nipple superficial depth. There is no suspicious finding in the LEFT breast. us Yang Perkins MD MAMMO ORDERABLES Final Result * (ABNORMAL) BASIC METABOLIC PANEL (CALCIUM TOTAL) [...] Resulting Agency Comment [facility]: [facility] [address] [id number] us Juan Hubbard MD LAB - CHEMISTRY ORDERABLES Fin al Result [facility] INSURANCE BILL [address] [place] [address] * (ABNORMAL) LIPID PROFILE (01/03/2021 10:59 AM [...] Resulting Agency Comment Lab Testing performed at: [facility] [address] [id number] us Juan Hubbard MD LAB - CHEMISTRY ORDERABLES Fin al Result [facility] INSURANCE BILL [address] [place] [address] * HEPATITIS C ANTIBODY (12/14/2019 3:03 PM CDT) Pathologist [facility] Hepatitis C Antibody <0.1 0.0 - 0.9 s/co ratio [facility] INSURANCE BILL Comment: Negative: < 0.8 Indeterminate: 0.8 - 0.9 Positive: > 0.9 . The CDC recommends that a positive HCV antibody result be followed up with a HCV Nucleic Acid Amplification test (047660). Blood BLOOD SPECIMEN / Unknown 12/14/2019 3:03 PM CDT 12/14/2019 Narrative Resulting Agency Comment Lab Testing performed at: [address] [id number] Latonia Marley PA-C LAB - CHEMISTRY ORDERABLE S Final Result Performing Organization Address City/[facility]/ZIP Co de Phone Number [facility] INSURANCE BILL [address] [place] [address] from Last 3 Months or Most Recently Relevant to Health Maintenance Insurance [employer] Care Teams Healthcare Administration Internship Relationship Specialty Start Date End Date Je Valladares MD [address] [place] [phone] PCP - General Internal Medicine 04/23/16
== END 2024-11-18 22:13 | disposition home or self-care (01) ==
LOC: ANHED 22:08
PROVIDERS: Emergency Provider Registered Nurse; PCP Internal Medicine
DX: S51.851A Open bite of right forearm, initial encounter (principal); Z23 Encounter for immunization; W55.01XA Bitten by cat, initial encounter
CPT/HCPCS: 90471; 90715; 99283; A9270